=== PATIENT | female | born 1960 | race Caucasian/White ===

== ENCOUNTER → 2017-12-22 09:23 | Outpatient (CLI) | payer OTHER, SELFPAY ==
--- NOTE | 2017-12-22 09:30 | HPBD_ITS ---
STUDY: DUAL ENERGY X-RAY ABSORPTIOMETRY / DXA REASON FOR EXAM: Female, 57 years old. Early menopause. No loss of height. TECHNIQUE: Bone Mineral Density (BMD) measurements of lumbar spine and bilateral hips were obtained. COMPARISON: None. FINDINGS: Lumbar Spine (L1-L4): g/cm2 (0.901) / T-score (-2.2) / Z-score (-1.3) Findings are suggestive of osteopenia with a moderate fracture risk. Left Femur Total: g/cm2 (0.828) / T-score (-1.4) / Z-score (-0.7) Left Femoral Neck: g/cm2 (0.850) / T-score (-1.4) / Z-score (-0.3) Right Femur Total: g/cm2 (0.813) / T-score (-1.5) / Z-score (-0.8) Right Femoral Neck: g/cm2 (0.792) / T-score (-1.8) / Z-score (-0.7) HPBD/Dexa Bone Density Study (HP) IMPRESSION: The patient is considered osteopenic as outlined below according to World [employer] Organization (WHO) criteria with a moderate fracture risk. Reference Information: The T-score is the number of standard deviations above or below the standard which is normal for young adults at their peak bone mineral density. The World Health Organization (WHO) interprets the T-scores as follows: Above -1 Normal bone density Between -1 and -2.5 Osteopenia Equal to / or below -2.5 Osteoporosis As a practical clinical guideline, osteopenia may be graded as follows: Mild -1 through -1.5 Moderate -1.6 through -2.0 Severe -2.1 through -2.4 The Z-score is the number of standard deviations above or below age-matched controls. A Z-score of less than -1.5 would be considered abnormal. References: 1. NIH Osteoporosis and Related Bone Diseases http://www.osteo.org 2. International Society for Clinical Densitometry http://www.iscd.org 3. National Osteoporosis Foundation http://www.nof.org Electronically Signed: Leif Dodd MD at 10:29 EST Tel [phone], Service support ,
== END ==
PROVIDERS: Family Provider Family Medicine; PCP Family Medicine; Visit Provider Family Medicine
DX: Z79.899 Other long term (current) drug therapy (principal)
CPT/HCPCS: 77080

== ENCOUNTER → 2018-02-02 09:57 | Outpatient (CLI) | payer OTHER, SELFPAY ==
[2018-02-02 11:01] LABS: Absolute Lymphocyte Count 1.81 X10^3/ul (0.83-4.51); Absolute Neutrophil Count 4.1 X10^3/uL (2.0-7.7); Basophil# 0.02 X10^3/uL; Basophil% 0.3 % (0-1); Eosinophil# 0.11 X10^3/uL; Eosinophils% 1.7 % (0-5); Hematocrit 40.5 % (37-47); Hemoglobin 12.8 g/dl (12.0-15.0); Lymphocyte # 1.81 X10^3/ul (4.0); Lymphocyte % 27.6 % (19-41); Mean Corp Hgb Conc 31.6 g/gl (32-36); Mean Corpuscular Hgb 30.3 pg (27.0-32.0); Mean Corpuscular Volume 95.7 fL (81-99); Mean Platelet Vol. 10.4 fl (6.2-12.0); Monocyte# 0.54 X10^3/uL; Monocyte% 8.2 % (0-10); Neutrophil # 4.07 X10^3/uL (2.7-7.7); Platelet Count 301 K/mm3 (150-450); RBC Distribution Width CV 13.6 % (11.6-14.6); RBC Distribution Width SD 47.8 fl (35.1-43.9); Red Blood Count 4.23 M/mm3 (4.2-5.4); White Blood Count 6.6 K/mm3 (4.4-11.0)
[2018-02-02 11:05] LABS: POSITIVE COUNT NO; POSITIVE DIFFERENTIAL NO; POSITIVE MORPHOLOGY NO
== END ==
PROVIDERS: Family Provider Family Medicine; PCP Family Medicine; Visit Provider Family Medicine
DX: Z79.899 Other long term (current) drug therapy (principal)
CPT/HCPCS: 36415; 85025

== ENCOUNTER → 2018-02-23 12:42 | Outpatient (CLI) | payer OTHER, SELFPAY ==
--- NOTE | 2018-02-24 08:51 | PFT ---
INTRODUCTION: The patient is a 57-year-old female currently under the care of Dr. Daniel that presents for pulmonary function testing secondary to a diagnosis of pulmonary hypertension. Respiratory therapy reports good patient effort and reports no other concerns. Bronchodilators were used during testing. INTERPRETATION: Forced expiration spirometry demonstrates no evidence of a large airways obstructive ventilatory defect. There was no significant response to aerosolized bronchodilators, based upon strict ATS criteria. Spirograms are of good quality and plateau normally. Body plethysmography was performed and reveals lung volumes to be within normal limits. Diffusing capacity by single breath CO is mildly reduced at 61% of predicted. IMPRESSION: These pulmonary function studies demonstrate the presence of an isolated mild reduction in diffusing capacity.
== END ==
PROVIDERS: Family Provider Family Medicine; PCP Family Medicine; Visit Provider Internal Medicine Critical Care Medicine
DX: I27.20 Pulmonary hypertension, unspecified (principal)
CPT/HCPCS: 94060; 94726; 94729

== ENCOUNTER → 2018-02-26 12:13 | Outpatient (CLI) | payer OTHER, SELFPAY ==
[2018-02-26 12:52] VITALS: PULSE 100; PULSE 101; PULSE 102; PULSE 71; PULSE 78; PULSE 81; PULSE 99; O2SAT 100; O2SAT 95; O2SAT 97
--- NOTE | 2018-02-27 09:58 | PCM.PSN.6M ---
PSN 6 Minute Walk Test - 6 Minute Walk Test 6 Minute Walk Test: 6 Minute Walk Test PSN:6-Minute Walk Test Start: 02/26/18 12:52 Freq: Status: Active Protocol: [id number].[id number] Document 02/26/18 12:52 [facility] (Rec: 02/26/18 12:55 [facility] [id number]) 6 Minute Walk Test Date Performed 02/26/18 Time Performed 12:30 Height 5 ft 8 in Weight: 228 lb Weight in Pounds 228.[address]: Joseluis Daniel Assistive device used: None Pre-test Oxygen Delivery Method Room Air Pulse Ox (%) 97 Pulse Rate (60-100 beats/min) 71 Dyspnea Cat Scale (0-10) 0 1st minute Oxygen Delivery Method Room Air Pulse Ox (%) 97 Pulse Rate (60-100 beats/min) 81 Dyspnea Cat Scale (0-10) 0 2nd minute Oxygen Delivery Method Room Air Pulse Ox (%) 95 Pulse Rate (60-100 beats/min) 100 Dyspnea Cat Scale (0-10) 0 3rd minute Oxygen Delivery Method Room Air Pulse Ox (%) 95 Pulse Rate (60-100 beats/min) 100 Dyspnea Cat Scale (0-10) 0 4th minute Oxygen Delivery Method Room Air Pulse Ox (%) 97 Pulse Rate (60-100 beats/min) 99 Dyspnea Cat Scale (0-10) 0 5th minute Oxygen Delivery Method Room Air Pulse Ox (%) 100 Pulse Rate (60-100 beats/min) 101 H Dyspnea Cat Scale (0-10) 0 6th minute Oxygen Delivery Method Room Air Pulse Ox (%) 97 Pulse Rate (60-100 beats/min) 102 H Dyspnea Cat Scale (0-10) 0 Post-test Oxygen Delivery Method Room Air Pulse Ox (%) 100 Pulse Rate (60-100 beats/min) 78 Dyspnea Cat Scale (0-10) 0 Full Laps Walked 22 Partial Lap, Number of Tiles Walked 31 Total Distance Walked (ft) 1329 - Interpretation Interpretation: The patient ambulated 1329 feet over the course of 6 minutes on room air without assistive devices or breaks. Pretesting oxygen saturation was noted to be 97% on room air. With ambulation, the augusto oxygen saturation was 95%. There was no significant exertional oxygen desaturation noted. - Recommendations Recommendations: There is no indication for the use of supplemental oxygen at this time.
== END ==
PROVIDERS: Family Provider Family Medicine; PCP Family Medicine; Visit Provider Internal Medicine Critical Care Medicine
DX: I27.20 Pulmonary hypertension, unspecified (principal)
CPT/HCPCS: 94618

== ENCOUNTER → 2018-05-10 14:39 | Outpatient (CLI) | payer OTHER, SELFPAY ==
--- NOTE | 2018-05-10 14:42 | BI_ITS ---
MAMMOGRAPHY - BILATERAL SCREENING REASON FOR EXAM: Female, 58 years old. Routine annual screening examination. PERTINENT HISTORY: Sister with breast cancer. TECHNIQUE: Digital bilateral breast stanton (3D mammographic acquisition) in the CC and MLO projections. 2-D mediolateral oblique (MLO) and craniocaudad (CC) views of both breasts were obtained. CAD: Full Field Digital Mammography with Computer Added Detection was performed. COMPARISON: Comparison is made with prior study dated February 09, 2017 and December 31, 2015. FINDINGS: Breast Composition: The breasts are heterogeneously dense, which may obscure small masses. There are no dominant masses or suspicious calcifications. Stable appearance of the small bilateral axillary lymph nodes. No other significant abnormalities are identified. There has been no significant change since the prior study. BI/SCREENING MAMM (CAD), BILAT IMPRESSION: Stable bilateral screening mammogram. Yearly follow-up mammogram recommended. (A) ASSESSMENT CATEGORY: BIRADS Category 2: Benign. A letter regarding these results will be sent to the patient by the facility within 30 days. Approximately 10% of breast cancers are not detected by mammography. A normal mammogram should not delay biopsy of a clinically suspicious abnormality. [id number] Electronically Signed: Leif Dodd MD at 8:13 EDT Tel [phone], Service support ,
== END ==
PROVIDERS: Family Provider Family Medicine; PCP Family Medicine; Visit Provider Obstetrics & Gynecology
DX: Z12.31 Encounter for screening mammogram for malignant neoplasm of breast (principal)
CPT/HCPCS: 77063; 77067

== ENCOUNTER → 2018-09-28 11:36 | Outpatient (CLI) | payer OTHER, SELFPAY ==
[2018-09-28 13:24] LABS: Rubella IgG > 500.0 IU/mL
[2018-09-30 08:19] LABS: Immunoglobulin G 1083 mg/dL (700-1600); Rubeola IgG Ab > 300.0 AU/mL (Immune >29.9)
[2018-09-30 08:20] LABS: B. pertussis IgG 1.14 index (0.00-0.94); Mumps Antibody,IgG > 300.0 AU/mL (Immune >10.9)
== END ==
PROVIDERS: Family Provider Family Medicine; PCP Family Medicine; Referring Provider Allergy & Immunology; Visit Provider Allergy & Immunology
DX: R76.8 Other specified abnormal immunological findings in serum (principal); J01.91 Acute recurrent sinusitis, unspecified
CPT/HCPCS: 36415; 82784; 86735; 86762; 86765

== ENCOUNTER 2018-11-02 10:00 | Outpatient (RCR) | payer OTHER, SELFPAY ==
--- NOTE | 2018-09-03 14:34 | HP.PTEVAL_ITS ---
Patient's Visit Information MIKKI SURESH is a 58 year old F referred to Physical Therapy by FREDA SALVADOR with a diagnosis of HYPERMOBLITY SYNDROME,PAIN IN JOINT ,MULTIPLE SITES. Date of Evaluation: 09/03/18 Physical Therapist: Guevara Jimenez, PT, - Visit Plan Frequency: 2x /Week Duration: 4 Weeks Plan: Aquatic PT for gradec progression with ROM UE/LE ,strengthening,posture,stabilization - Subjective Subjective: This 58 y/o female presents to physical therapy with hypermoblity syndrome ,pain in joint ,mutliple sites.This patient has had joint ,muscle pain and fatigue since 2014, Patient has seen pain managemnent ,massage. Patient has seen specialist for RA specialist in [facility] immune system recommended Water Exercies . Patient has other comorbities fibromayagia,possible lupus , connective tissue disorder. patient has pain grossly neck shoulders ,hips ankle. These symptoms worse with activity affect QOL ,job demands ,difficulty with ADL'S and housework chores. Denies parathesia/tingling. Patient has had lab work.Patient symptoms of fatigue along with pain affects function.Patient recommend to see immunuolgist. SOCIAL: . VOCATION: Medical records - Pain Bilateral Lower Extremity Pain Intensity (Out of 10): 5 Pain Intensity Range: 10 Bilateral Shoulder Pain Intensity (Out of 10): 5 Pain Intensity Range: 10 - Objective POSTURE: mild foward posture,roud shoulders. GAIT: ambulates with normal wilma reciprocal pattern. PALAPTION: tender trigger points throught upper lower back. NEURO: denie parathesia/tingling ,reflexes intac. AROM: BUE WFL. MMT UE: 4/5 shoulders 4-/5. CERVICAL ROM: flexion min loss ,extension /lateral flexion/rotation mod loss. FLEXABLITTY: hams mod tight ,piriformis mod tight. LUMBAR ROM: min loss flexion extension. MMT LE: quads/hams 4/5,ankle 4/5,hip 4- /5 - Special Tests C/S Radiculapathy - Left Upper limb tension test: Negative C/S Radiculapathy - Right Upper limb tension test: Negative C/S Radiculapathy - Left Spurlings: Negative C/S Radiculapathy - Right Spurlings: Negative C/S Radiculapathy - Left Cervical distraction: Negative L/S Slump test left side: Negative L/S Slump test right side: Negative L/S Left Straight Leg Raise: Negative L/S Right Straight Leg Raise: Negative - Goals Goal 1:: Independant with Aquatic PT program. Goal Time Frame: 4-6 Weeks Goal 2:: Patient to decrease pain multiple regions in body by 40% or greater to improve function. Goal Time Frame: 4-6 Weeks Goal 3:: Patient improve LFES score by 10 points or greater to improve QOL Goal Time Frame: 4-6 Weeks Goal 4:: Patient to improve ADL'S and housework tasks with min limiations Goal Time Frame: 4-6 Weeks - Rehabilitation Potential Physical Therapy Diagnosis: This 58 y/o female presents with pain throught UE/LE back cervical with mutiple sites which. affect QOL ,ADL'S and job demands thus benifit from skille PT Rehabilitation Potential: Good - Anticipated Interventions Patient/Client Instruction: Educate patient on: Condition, Plan of Care For the Purpose of:: To decrease pain, To increase ROM, To improve nutrient delivery to tissue, To increase oxygenation perfusion, To improve muscle performance and motor function, To improve ability to perform ADL's, To increase tolerance to activity/condition/position, To improve ability of physical actions for home/community/work/leisure, To improve health of tissue, To increase flexibility/ROM, To foster healthy habits, To improve ability to perform tasks related to life management Therapeutic Exercise to Include: Strength training, Postural training, Flexibilty training, In an aquatic setting, Passive ROM, Active ROM, Dynamic Lumbar Stabilization For the Purpose of:: To decrease pain, To increase ROM, To improve muscle performance and motor function, To improve ability to perform ADL's, To increase tolerance to activity/condition/position, To improve health of tissue, To decrease soft tissue restriction, To increase flexibility/ROM, To improve ability to perform tasks related to life management Thank you for the opportunity to evaluate your patient. For Medicare and Medicare HMO plans, please review the plan of care and approve it. It will need to be FAXED BACK to us at [phone] for Medicare purposes. Please let me know if there are questions or concerns regarding this plan of care. Physician Signature: Date:
--- NOTE | 2019-02-21 10:45 | HP.PTDCSUM ---
HP - PT D/C Summary It has been my pleasure to treat MIKKI SURESH under orders from FREDA SALVADOR, for the diagnosis of HYPERMOBLITY SYNDROME,PAIN IN JOINT ,MULTIPLE SITES for a total of 8 visit(s). Discharge Date: Please see the following information for a summary of their discharge status. - Subjective Subjective: States after last appt she was a little sore, but that is to be expected with being sick and having 2 weeks off of AT. - Pain Bilateral Lower Extremity Pain Intensity (Out of 10): 2 Bilateral Shoulder Pain Intensity (Out of 10): 2 General Pain Pain Intensity (Out of 10): 2 - Overall Improvement % Improvement: 70 - Objective Objective/Function: After discussion of this being the last appt, states she wants to continue in the pool. Implemented paper for progressions to I pool program with instruction on use of paper and following commands. Does well following paper, however more difficulty performing at challenging progression - encouraged this as written on paper. Some c/o's pain/fatigue through BLAT hip flexors/quads with lunges today. Able to complete several tasks I after Rx with paper. - Goals Goal 1:: Independant with Aquatic PT program. Goal 2:: Patient to decrease pain multiple regions in body by 40% or greater to improve function. Goal 3:: Patient improve LFES score by 10 points or greater to improve QOL Goal 4:: Patient to improve ADL'S and housework tasks with min limiations - Plan Plan: f/u with supervising PT next. Would recommend continued AT appts at this time with progression towards I pool program of her choice of facility. (Pt reports did not encourage her to progress to land d/t Lupus). - D/C Information If there are questions or concerns regarding this patient's physical therapy, please feel free to call me at [phone]. Thank you for the referral of this patient. Sincerely, Guevara Jimenez, PT, Cert MDT, OCS
== END 2018-11-02 19:00 | disposition home or self-care (01) ==
LOC: PT 10:00
PROVIDERS: Family Provider Family Medicine; PCP Family Medicine
DX: M35.7 Hypermobility syndrome (principal); M25.50 Pain in unspecified joint
CPT/HCPCS: 97113; 97162

== ENCOUNTER → 2019-06-27 10:24 | Outpatient (CLI) | payer OTHER, SELFPAY ==
[2019-02-22 08:30] VITALS: BMI 37.7
--- NOTE | 2019-06-27 10:27 | BI_ITS ---
MAMMOGRAPHY - BILATERAL SCREENING REASON FOR EXAM: Female, 59 years old. Routine annual screening examination. PERTINENT HISTORY: Sister with breast cancer. Remote right excisional breast biopsy. TECHNIQUE: Digital bilateral breast mehran (3D mammographic acquisition) in the CC and MLO projections. 2-D mediolateral oblique (MLO) and craniocaudad (CC) views of both breasts were obtained. CAD: Full Field Digital Mammography with Computer Added Detection was performed. COMPARISON: Comparison is made with prior study dated May 10, 2018 and February 09, 2017. FINDINGS: Breast Composition: The breasts are heterogeneously dense, which may obscure small masses. There are no dominant masses or suspicious calcifications. Stable small bilateral axillary lymph nodes. No other significant abnormalities are identified. There has been no significant change since the prior study. BI/SCREEN MAMM (CAD) W/MEHRAN BILAT IMPRESSION: Stable bilateral screening mammogram. Yearly follow-up mammogram recommended. (A) ASSESSMENT CATEGORY: BIRADS Category 2: Benign. A letter regarding these results will be sent to the patient by the facility within 30 days. Approximately 10% of breast cancers are not detected by mammography. A normal mammogram should not delay biopsy of a clinically suspicious abnormality. [id number] Electronically Signed: Leif Dodd, at 12:42 EDT , Service support ,
== END ==
PROVIDERS: Family Provider Family Medicine; PCP Family Medicine; Referring Provider Family Medicine; Visit Provider Family Medicine
DX: Z12.31 Encounter for screening mammogram for malignant neoplasm of breast (principal); Z80.3 Family history of malignant neoplasm of breast
CPT/HCPCS: 77063; 77067

== ENCOUNTER → 2019-08-16 09:41 | Outpatient (CLI) | payer OTHER, SELFPAY ==
[2019-02-22 08:30] VITALS: BMI 37.7
--- NOTE | 2019-08-16 14:38 | PFTCOMP ---
COMPLETE PULMONARY FUNCTION TEST INTERPRETATION Brief HPI: Patient is a 59 year old female, currently under the care of myself, who presents to [facility] for complete pulmonary function tests secondary to diagnosis of LILIANA. Respiratory therapist reports good effort and reproducible results. Interpretation: Forced expiration spirometry shows no large airways obstructive ventilatory defect with an FEV1 of 73% predicted. There is no significant bronchodilator response by strict ATS criteria. Spirograms are of good quality and plateau normally. The respiratory flow volume loop shows a normal pattern. Lung volumes by body plethysmography show a normal total lung capacity at 5.32 L, 93% predicted. All other lung volumes are within normal limits. Diffusion capacity by carbon monoxide is decreased at 66% predicted. The airway resistance is normal. Compared to previous pulmonary function tests from 02/23/2018, there is been a significant improvement in DLCO by 13%. Impression: Isolated reduction in diffusion capacity consistent with a pulmonary vascular disorder. However, there has been improvement compared to 2018.
== END ==
PROVIDERS: Family Provider Family Medicine; PCP Family Medicine; Referring Provider Internal Medicine Critical Care Medicine; Visit Provider Internal Medicine Critical Care Medicine
DX: G47.33 Obstructive sleep apnea (adult) (pediatric) (principal); I27.21 Secondary pulmonary arterial hypertension; J45.40 Moderate persistent asthma, uncomplicated; M32.9 Systemic lupus erythematosus, unspecified; M35.9 Systemic involvement of connective tissue, unspecified
CPT/HCPCS: 94060; 94726; 94729

== ENCOUNTER → 2019-12-08 07:48 | Outpatient (CLI) | payer OTHER, SELFPAY ==
[2019-08-22 07:50] VITALS: BMI 38.6
--- NOTE | 2019-12-08 07:51 | CT_ITS ---
STUDY: CTA CHEST REASON FOR EXAM: Female, 59 years old. PT STATED CHEST PAIN AFTER LIFTING, SOB WITH EXERTION, HX OF HTN RADIATION DOSAGE (If Supplied By Facility): CTDIvol = ( 15.54 ) mGy, DLP = ( 805 ) mGycm TECHNIQUE: The examination was performed with the intravenous administration of 100ml isovue 370. Post-processing of the angiographic images was performed, with multiplanar reformation and 3D reconstruction. Individualized dose optimization techniques were used for this CT. COMPARISON: Comparison is made with prior examination dated December 08, 2013. FINDINGS: Normal enhancement of the main pulmonary artery and right and left pulmonary arteries. Normal enhancement of the bilateral peripheral pulmonary arteries. There is no demonstrated pulmonary embolism. There is aneurysmal dilatation of the ascending aorta. The transverse diameter of the ascending aorta measures 45.5 mm''s. There is no demonstrated aortic dissection. Normal heart and pericardium. Normal mediastinum. Normal hilar regions. Normal visualized trachea and bronchi. The lungs are well expanded. Stable mild increased markings at the lung bases suggestive of mild scarring. Normal pleura. Normal chest wall structures. There are mild degenerative changes of thoracic spine. Normal visualized upper abdomen. CT/CTA Chest W/WO Contrast IMPRESSION: Stable dilatation of the ascending thoracic aorta. Electronically Signed: Leif Dodd, at 9:07 EST , Service support ,
== END ==
PROVIDERS: PCP Family Medicine; Referring Provider Family Medicine; Visit Provider Family Medicine
DX: I71.2 Thoracic aortic aneurysm, without rupture (principal); R07.9 Chest pain, unspecified
CPT/HCPCS: 71275; Q9967

== ENCOUNTER 2019-12-24 09:00 | Emergency (ER) | payer OTHER, SELFPAY ==
[2019-08-22 07:50] VITALS: BMI 38.6
[2019-12-24 09:01] VITALS: BP 154/97; PULSE 79; RESP 16; TEMP 36.1; O2SAT 97; BMI 37.4
--- NOTE | 2019-12-24 09:12 | CT_ITS ---
STUDY: CT BRAIN WITHOUT CONTRAST REASON FOR EXAM: Female, 59 years old. FACIAL NUMBNESS, FALL, LUMP TO POSTERIOR HEAD RADIATION DOSAGE (If Supplied By Facility): CTDIvol = ( 44.99 ) mGy, DLP = ( 745.49 ) mGycm TECHNIQUE: Transaxial CT imaging of the brain was performed without administration of intravenous contrast material. Individualized dose optimization techniques were used for this CT. COMPARISON: No relevant priors. FINDINGS: Posterior right parietal scalp swelling/hematoma. Normal calvarium. Normal size ventricles and extra-axial spaces for the patient''s age. Normal white matter tracts of the cerebral hemispheres. Normal basal ganglia and thalami. Normal brainstem. Normal cerebellum. There is no intracranial hemorrhage. There are no findings of an acute ischemic infarction. Normal visualized paranasal sinuses. CT/Brain/Head without Contrast IMPRESSION: Normal unenhanced CT scan of the brain. Right posterior parietal scalp swelling/hematoma. Electronically Signed: Nakul Murrell DO at 9:51 EST Tel [phone], Service support ,
--- NOTE | 2019-12-24 09:31 | ED.VIS.INJ ---
History of Present Illness Chief Complaint: Fall Informant: Patient, Significant Other Onset: Today Mechanism/Context: Blunt Injury, Fall Quality of Pain: Dull, Aching Location: Back of head Current Severity: Mild Maximum Severity: Moderate Worsened by: Palpation Relieved by: Nothing Associated Symptoms: Loss of consciousness, Amnesia. Negative for: Parasthesias, Weakness, Inability to ambulate Length of loss of consciousness: Unknown Narrative: Patient is a middle-age woman who presents with blunt head trauma. She had loss of conscious amnestic. Her was not available. She complains of headache. She does report nausea. She is had no vomiting. Denies double vision, blurred vision loss of vision. Nuys ringing in ears or decreased hearing. Denies neck pain. She denies paresthesia, anesthesia medics present at time of the injury. Denies cardiac respiratory symptoms. Nuys black or maroon stool. She denies urologic symptoms. She denies prior history of TIA or CVA. 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 (10) Supraventricular tachycardia Status: Chronic (11) Thoracic aortic aneurysm without rupture Status: Chronic Past Medical History - Allergies and Home Meds Allergies/Adverse Reactions: Allergies caffeine Allergy (Verified 12/24/19 09:03) Other BLEEDS INTERNALLY, PETECIE cephalexin monohydrate [From Keflex] Allergy (Verified 12/24/19 09:03) Hives TURNS RED Penicillins Allergy (Verified 12/24/19 09:03) Other promethazine HCl [From Phenergan] Adverse Reaction (Verified 12/24/19 09:03) Other IV PHENERGAN - WHIPLASH LIKE FEELING STATES SHE CAN TAKE PO PHENERGAN Primary Care Physician: Aisha Aguilar DO [Primary Care Provider] - Prior records reviewed: Yes Surgical History: noncontributory Lives: Spouse/ Significant Other Smoking Status: Never smoker Drugs: None Review of Systems ROS: Unable to Obtain - Patient is amnestic limited to what is documented General: Denies: Chills, Fever Eyes: Denies: Visual changes - bilaterally, Blurred Vision - bilaterally, Diplopia ENT: Denies: Bilateral ear pain, Rhinorrhea, Sore throat Cardiovascular: Denies: Chest pain, Palpitations Respiratory: Denies: Dyspnea, Dyspnea on exertion Gastrointestinal: Reports: Nausea. Denies: Abdominal pain, Vomiting Musculoskeletal: Denies: Myalgias, Arthralgias, Neck pain, Back pain, Swelling, Extremity Pain Skin: Denies: Rash, Wounds Neurological: Reports: Headache, Parasthesia - Paresthesia left side of the face. Denies: Weakness Endocrine: Reports: Polyuria Hematologic: Denies: Easy bruising, Easy bleeding Allergy: Denies: Swelling of the mouth, Swelling of the tongue Physical Exam Vital Signs/Narrative: Vital Signs Temp Pulse Resp BP Pulse Ox 12/24/19 09:01 97 F L 79 16 154/97 H 97 Inital Vital Signs reviewed: Yes General: Well nourished, Well developed, Obese Head: Normocephalic, Trauma, Tenderness, - - Is a significant hematoma right parietal occipital area. No palpable depression. There is no clinical finding of basilar skull fracture. Eyes: Perrl, EOMI. Negative for: Pale conjunctiva, Scleral icterus ENT: TM's clear, No hemotympanum or drainage, No trauma. Negative for: Hemotympanum, Otorrhea, Nasal trauma, Nasal septal hematoma Neck: Nontender, Full ROM. Negative for: Spinal Tenderness, Paraspinal Tenderness Cardiovascular: Regular rate, Regular rhythm, No murmurs, Normal S1, Normal S2 Respiratory: No distress, CTA bilaterally, Chest nontender Abdomen: Soft, Nontender, Nondistended, Normal bowel sounds, No masses Back: Nontender. Negative for: CVA Tenderness - Right, CVA Tenderness - Left, Spinal Tenderness Skin: Normal color, No rash, Trauma - Yenifer back of the head. Negative for: Cyanosis, Diaphoresis, Jaundice Neurological: Cranial nerves II-XII grossly intact, Normal Strength, Normal DTR - There is a Babinski sign on the right. There is no clonus., Confused, Disoriented. Negative for: Alert, Oriented x3, Normal Sensation Psychological: Normal affect - Glascow Coma Scale Eye Opening: Spontaneous Motor: Obeys Commands Verbal: Confused Coma Scale Total: 14 Diagnostic/Tx/Re-eval Impressions Brain CT 12/24/19 09:12 IMPRESSION: Normal unenhanced CT scan of the brain. Right posterior parietal scalp swelling/hematoma. Electronically Signed: Nakul Murrell DO at 9:51 EST Tel [phone], Service support , 12/24/19 09:12 Brain/Head without Contrast [CT] Stat He was reviewed by me. There is no evidence of fracture, subdural, epidural, traumatic subarachnoid hemorrhage or intraparenchymal bleed. Patient was reassessed at 1100. She is alert and oriented x3 with a GCS of 15. - Medical Decision Making With head trauma and loss of conscious and amnesia with GCS of [address] of the head was obtained to rule out intracranial bleed i.e. subdural, epidural, traumatic subarachnoid or intraparenchymal contusion. ED Disposition - Plan for ED Patient: Disposition: Home or Assisted Living Diagnosis: Concussion with loss of consciousness <= 30 min Instructions: HEAD INJURY, No Wake-Up (Adult) Referrals: Aisha Aguilar DO [Primary Care Provider] - 1 Week if not improving
== END 2019-12-24 11:26 | disposition home or self-care (01) ==
PROVIDERS: Emergency Provider Emergency Medicine; PCP Family Medicine
DX: S06.0X1A Concussion with loss of consciousness of 30 minutes or less, initial encounter (principal); S00.03XA Contusion of scalp, initial encounter; W19.XXXA Unspecified fall, initial encounter; Y93.9 Activity, unspecified; Y92.9 Unspecified place or not applicable; Y99.9 Unspecified external cause status; M32.9 Systemic lupus erythematosus, unspecified; I10 Essential (primary) hypertension; E78.5 Hyperlipidemia, unspecified; J45.40 Moderate persistent asthma, uncomplicated; I34.0 Nonrheumatic mitral (valve) insufficiency; I34.1 Nonrheumatic mitral (valve) prolapse; I27.21 Secondary pulmonary arterial hypertension; I47.1 Supraventricular tachycardia; I71.2 Thoracic aortic aneurysm, without rupture; G47.33 Obstructive sleep apnea (adult) (pediatric); E66.9 Obesity, unspecified; Z79.82 Long term (current) use of aspirin; Z79.899 Other long term (current) drug therapy; Z88.1 Allergy status to other antibiotic agents; Z88.0 Allergy status to penicillin; Z88.8 Allergy status to other drugs, medicaments and biological substances
CPT/HCPCS: 70450; 99283; A4216

== ENCOUNTER → 2020-01-05 07:57 | Outpatient (CLI) | payer OTHER, SELFPAY ==
[2019-12-24 09:01] VITALS: BMI 37.4
--- NOTE | 2020-01-05 08:04 | RAD_ITS ---
STUDY: X-RAY - PELVIS AND RIGHT HIP REASON FOR EXAM: Female, 59 years old. CONTINUED PAIN S/P FALL 2 WEEKS AGO; -- LUPUS, FIBROMYALGIA TECHNIQUE: 3 views of the pelvis and hip. COMPARISON: None. FINDINGS: There is a non-specific bowel gas pattern. Normal visualized soft tissue structures. Normal bilateral iliac wings, sacroiliac joints and visualized sacrum. Normal bilateral superior and inferior pubic rami. There are degenerative changes of the pubic symphysis with articular narrowing and sclerosis. Normal bilateral ischial tuberosities. Normal visualized femoral head. Normal acetabulum. Normal hip joint. RAD/HIP, UNI W/ Pelvis 2-3 Views IMPRESSION: Normal x-ray examination of the pelvis and hip. Electronically Signed: Leif Dodd, at 9:56 EST , Service support ,
== END ==
PROVIDERS: PCP Family Medicine; Referring Provider Family Medicine; Visit Provider Family Medicine
DX: M25.551 Pain in right hip (principal); R10.2 Pelvic and perineal pain
CPT/HCPCS: 73502

== ENCOUNTER → 2020-08-16 12:20 | Outpatient (CLI) | payer OTHER, SELFPAY ==
[2020-02-20 08:32] VITALS: BMI 37.8
[2020-08-04 09:04] VITALS: BMI 37.8
--- NOTE | 2020-08-16 12:20 | BD_ITS ---
STUDY: DUAL ENERGY X-RAY ABSORPTIOMETRY / DXA REASON FOR EXAM: Female, 60 years old. Age of dinesh 45. Pat is 242.5# and 67 and quot; a loss of 1 and quot; per pat. Past hx of using an HRT. Father has osteo. Hx of right foot fx, and stress fx''s to both. TECHNIQUE: Bone Mineral Density (BMD) measurements of lumbar spine and bilateral hips were obtained. COMPARISON: Comparison is made with prior study dated 08/21/2018. FINDINGS: Lumbar Spine (L1-L4): g/cm2 (1.008) / T-score (-1.3) / Z-score (-0.2) Findings are suggestive of osteopenia with a low fracture risk. Left Femur Total: g/cm2 (0.868) / T-score (-1.1) / Z-score (-0.2) Left Femoral Neck: g/cm2 (0.834) / T-score (-1.5) / Z-score (-0.3) Right Femur Total: g/cm2 (0.822) / T-score (-1.5) / Z-score (-0.6) Right Femoral Neck: g/cm2 (0.798) / T-score (-1.7) / Z-score (-0.5) The T-Scores on the most recent prior examination were: Lumbar Spine (L1-L4): There has been improvement of bone density since the previous examination. Left Femur Total: which represents an improvement of 4.8%. Right Femur Total: which represents an improvement of 1.1%. BD/Dexa Bone Density Study IMPRESSION: The patient is considered osteopenic as outlined below according to World [employer] Organization (WHO) criteria with a moderate fracture risk. There has been improvement of bone density since the previous examination. Reference Information: The T-score is the number of standard deviations above or below the standard which is normal for young adults at their peak bone mineral density. The World Health Organization (WHO) interprets the T-scores as follows: Above -1 Normal bone density Between -1 and -2.5 Osteopenia Equal to / or below -2.5 Osteoporosis As a practical clinical guideline, osteopenia may be graded as follows: Mild -1 through -1.5 Moderate -1.6 through -2.0 Severe -2.1 through -2.4 The Z-score is the number of standard deviations above or below age-matched controls. A Z-score of less than -1.5 would be considered abnormal. References: 1. NIH Osteoporosis and Related Bone Diseases http://www.osteo.org 2. International Society for Clinical Densitometry http://www.iscd.org 3. National Osteoporosis Foundation http://www.nof.org Electronically Signed: Leif Dodd, at 14:52 EDT , Service support ,
--- NOTE | 2020-08-16 12:22 | BI_ITS ---
MAMMOGRAPHY - BILATERAL SCREENING REASON FOR EXAM: Female, 60 years old. Routine annual screening examination. PERTINENT HISTORY: Sister with breast cancer. TECHNIQUE: Digital bilateral breast mehran (3D mammographic acquisition) in the CC and MLO projections. 2-D mediolateral oblique (MLO) and craniocaudad (CC) views of both breasts were obtained. CAD: Full Field Digital Mammography with Computer Added Detection was performed. COMPARISON: Comparison is made with prior study 06/27/2019 and 05/10/2018. FINDINGS: Breast Composition: The breasts are heterogeneously dense, which may obscure small masses. There are no dominant masses or suspicious calcifications. Stable small benign appearing bilateral axillary lymph nodes. No other significant abnormalities are identified. There has been no significant change since the prior study. BI/SCREEN MAMM (CAD) W/MEHRAN BILAT IMPRESSION: Stable bilateral screening mammogram. Yearly follow-up mammogram recommended. (A) ASSESSMENT CATEGORY: BIRADS Category 2: Benign. A letter regarding these results will be sent to the patient by the facility within 30 days. Approximately 10% of breast cancers are not detected by mammography. A normal mammogram should not delay biopsy of a clinically suspicious abnormality. [id number] Electronically Signed: Leif Dodd, at 14:41 EDT , Service support ,
== END ==
PROVIDERS: PCP Family Medicine; Referring Provider Family Medicine; Visit Provider Family Medicine
DX: Z12.31 Encounter for screening mammogram for malignant neoplasm of breast (principal); Z78.0 Asymptomatic menopausal state
CPT/HCPCS: 77063; 77067; 77080

== ENCOUNTER → 2020-08-23 14:24 | Outpatient (CLI) | payer OTHER, SELFPAY ==
[2020-08-04 09:04] VITALS: BMI 37.8
--- NOTE | 2020-08-23 14:28 | RAD_ITS ---
STUDY: X-RAY - CERVICAL SPINE REASON FOR EXAM: Female, 60 years old. increasing pain, right sided swelling posterior neck, pinched nerve feeling on the the left side TECHNIQUE: 5 view(s) of the cervical spine were obtained. COMPARISON: Previous intraoperative study of 12/15/2014 FINDINGS: Normal anterior atlantoaxial articulation. Normal odontoid process. Normal cervical lordosis. There is minimal endplate spondylosis of C6. Normal disc space heights. Normal visualized intervertebral neuroforamina. The soft tissue structures are unremarkable. RAD/Cerv Spine 4 or 5 Views IMPRESSION: Minimal endplate spondylosis of C6. The study is otherwise unremarkable. Electronically Signed: Naveen Hoyos MD at 20:07 EDT , Service support ,
== END ==
PROVIDERS: PCP Family Medicine; Visit Provider Anesthesiology Pain Medicine
DX: M50.30 Other cervical disc degeneration, unspecified cervical region (principal)
CPT/HCPCS: 72050

== ENCOUNTER → 2020-08-30 13:00 | Outpatient (CLI) | payer OTHER, SELFPAY ==
[2020-08-27 09:11] VITALS: BMI 38.2
== END ==
PROVIDERS: PCP Family Medicine; Referring Provider Nurse Practitioner Acute Care; Visit Provider Nurse Practitioner Acute Care
DX: Z46.89 Encounter for fitting and adjustment of other specified devices (principal)
CPT/HCPCS: 98960; G0463

== ENCOUNTER 2020-09-17 06:05 | Day surgery (SDC) | payer OTHER, SELFPAY ==
[2020-08-27 09:11] VITALS: BMI 38.2
[2020-09-17 06:30] VITALS: BP 135/76; PULSE 64; RESP 16; TEMP 36.4; O2SAT 96; BMI 36.9
[2020-09-17] MEDS: Lactated Ringers 1,000 ML 100 ML IV (06:41)
--- NOTE | 2020-09-17 07:50 | RAD_ITS ---
PROCEDURE: Left C4-C7 facet joint injection. DATE OF EXAMINATION: 09/17/2020. INDICATION: Female, 60 years old. Chronic neck pain. FLUOROSCOPY TIME (if supplied): (10.9 seconds) minutes/seconds. 4 intraoperative views were obtained. Intraoperative imaging provided for C4-C7 left facet joint injection. RAD/Cerv Spine 4 or 5 Views IMPRESSION: Intraoperative imaging provided for left C4-C7 facet joint injection. Electronically Signed: Leif Dodd, at 9:40 EST , Service support ,
[2020-09-17] MEDS: MethylPREDNISolone Acetate 40 MG/ML Vial IM (07:53)
[2020-09-17] MEDS: Bupivacaine 0.25% 30 ML Vial (07:53)
[2020-09-17 08:01] VITALS: BP 121/63; BP 135/76; PULSE 72; RESP 16; TEMP 36.3; O2SAT 99
[2020-09-17 08:06] VITALS: BP 128/81; BP 135/76; PULSE 63; RESP 16; O2SAT 99
[2020-09-17 08:11] VITALS: BP 134/80; BP 135/76; PULSE 62; RESP 16; O2SAT 99
[2020-09-17 08:17] VITALS: BP 117/91; BP 135/76; PULSE 62; RESP 16; TEMP 36.3; O2SAT 100
[2020-09-17 08:26] VITALS: BP 135/76
--- NOTE | 2020-09-17 14:36 | OP.PCM_ITS ---
Report of Operation Date of Procedure: 09/17/20 Description of Surgical Findings:: PREOPERATIVE DIAGNOSIS: Cervical spondylosis, cervical degenerative disc disease, cervical facet arthropathy POSTOPERATIVE DIAGNOSIS: Cervical spondylosis, cervical degenerative disc disease, cervical facet arthropathy PROCEDURE PERFORMED: Left-sided cervical facet steroid injection, C4, C5, C6, and C7. ANESTHESIA: MAC. BLOOD LOSS: Minimal. COMPLICATIONS: None. DESCRIPTION OF PROCEDURE: History and physical of today was reviewed. Risks and benefits of the procedure were explained. The patient understood and agreed to proceed. Informed consent was obtained. IV inserted per routine protocol. The patient was taken to the operating room and placed in the prone position with a pillow positioned underneath the chest. The neck area was prepped and draped in a sterile fashion using iodine x3. Under fluoroscopy guidance on an AP view, the C4 through C7 vertebral bodies were visualized at approximately 10- degree angle, starting on the left C4, ending on the left C7, passing through the C5 and C6. Using a 25-gauge 3-1/2-inch spinal needle, the needle was advanced via the skin. The tip of the needle was maneuvered and directed towards the epiphyseal junction of each corresponding vertebra. Once the tip of the needle was at the vicinity of the medial branch, the needle was pulled ap proximately 2 mm off the bone. After negative aspiration of blood or CSF and confirmation on AP, oblique as well as lateral view, a total of 4 mL of preservative-free 0.25% Marcaine with 80 mg of Depo-Medrol was injected in divided doses between those four levels. The needles were then removed intact. The patient experienced no sign or symptoms of intrathecal or intravascular injection. The patient experienced no paresthesia. The procedure was completed without any apparent difficulty or any complications. The patient appeared to tolerate it well. ASSESSMENT AND PLAN: This is a 60-year-old female with cervical spondylosis, cervical degenerative disc disease, cervical facet arthropathy status post left-sided cervical facet steroid injection C4-C7, patient will continue her current medications, patient will follow up in approximately 2 weeks for reevaluation.
== END 2020-09-17 08:40 | disposition home or self-care (01) ==
LOC: SDC 06:05 → AC 06:05
PROVIDERS: PCP Family Medicine; Referring Provider Anesthesiology Pain Medicine; Visit Provider Anesthesiology Pain Medicine
PROC: 3E0U3BZ Introduction of Anesthetic Agent into Joints, Percutaneous Approach (ICD-10-PCS; CPT 64490; principal; 2020-09-17 07:35)
DX: M47.812 Spondylosis without myelopathy or radiculopathy, cervical region (principal); M50.30 Other cervical disc degeneration, unspecified cervical region; Z79.899 Other long term (current) drug therapy; Z79.82 Long term (current) use of aspirin; I10 Essential (primary) hypertension; I47.1 Supraventricular tachycardia; J45.909 Unspecified asthma, uncomplicated; G47.33 Obstructive sleep apnea (adult) (pediatric); M79.7 Fibromyalgia; M32.9 Systemic lupus erythematosus, unspecified; E78.5 Hyperlipidemia, unspecified; Z79.891 Long term (current) use of opiate analgesic
CPT/HCPCS: 01992; 64490; 64491; 64492; 72050; J7120

== ENCOUNTER → 2020-10-04 08:12 | Outpatient (CLI) | payer OTHER, SELFPAY ==
[2020-09-17 06:30] VITALS: BMI 36.9
[2020-10-04 09:04] LABS: Absolute Lymphocyte Count 1.79 X10^3/uL (0.83-4.51); Absolute Neutrophil Count 2.8 X10^3/uL (2.0-7.7); Basophil# 0.04 X10^3/uL; Basophil% 0.8 % (0-1); Eosinophils% 1.9 % (0-5); Hematocrit 41.4 % (37-47); Hemoglobin 12.9 g/dL (12.0-15.0); Lymphocyte # 1.79 X10^3/ul (4.0); Lymphocyte % 34.6 % (19-41); Mean Corp Hgb Conc 31.2 g/dL (32-36); Mean Corpuscular Hgb 31.1 pg (27.0-32.0); Mean Corpuscular Volume 99.8 fL (81-99); Mean Platelet Vol. 10.2 fl (6.2-12.0); Monocyte# 0.46 X10^3/uL; Monocyte% 8.9 % (0-10); NRBC Flagged by Analyzer 0 % (0-5); Neutrophil # 2.77 X10^3/uL (2.7-7.7); Neutrophil % 53.6 % (47-70); Platelet Count 265 K/mm3 (150-450); RBC Distribution Width CV 13.1 % (11.6-14.6); RBC Distribution Width SD 48.5 fl (35.1-43.9); Red Blood Count 4.15 M/mm3 (4.2-5.4); White Blood Count 5.2 K/mm3 (4.4-11.0)
[2020-10-04 09:30] LABS: Progesterone Level 0.25 ng/mL (See Comment)
[2020-10-04 09:34] LABS: Hemoglobin A1c 5.5 % (3.8-5.6)
[2020-10-04 09:37] LABS: ALB/GLOB Ratio 1.1 RATIO (0.9-2.4); AST(SGOT) 12 U/L (15-37); Alanine Aminotransfer ALT/SGPT 26 U/L (13-56); Albumin, Serum 3.6 g/dL (3.2-5.0); Alkaline Phosphatase 92 U/L (45-117); Anion Gap 1 (5-15); BUN 12 mg/dL (7-18); Calcium,Total 8.9 mg/dL (8.5-10.1); Chloride 111 mmol/L (98-107); Creatinine, Serum 0.86 mg/dL (0.55-1.02); EST Glomerular Filtration Rate 72 mL/min (>60); Est Glom Filt Rate - Afr Amer 87 mL/min (>60); Estradiol 12.9 pg/mL; Globulin 3.2 g/dL (2.2-4.2); Glucose 96 mg/dL (74-106); Potassium 4.1 mmol/L (3.5-5.1); Protein, Total 6.8 g/dL (6.4-8.2); Sodium Level 143 mmol/L (136-145); Thyroid Stim Hormone (TSH) 1.16 uIU/mL (0.358-3.74)
== END ==
PROVIDERS: PCP Family Medicine; Referring Provider Family Medicine; Visit Provider Family Medicine
DX: R53.83 Other fatigue (principal); N95.1 Menopausal and female climacteric states; R73.02 Impaired glucose tolerance (oral)
CPT/HCPCS: 36415; 80053; 82670; 83036; 84144; 84443; 85025

== ENCOUNTER → 2020-11-30 10:10 | Outpatient (CLI) | payer OTHER, SELFPAY ==
[2020-11-30 09:37] VITALS: BMI 36.8
--- NOTE | 2020-11-30 10:13 | RAD_ITS ---
STUDY: X-RAY - LUMBAR SPINE REASON FOR EXAM: Female, 60 years old. LOW BACK PAIN, NO INJURY TECHNIQUE: 5 view(s) of the lumbar spine were obtained. COMPARISON: None FINDINGS: Normal lumbar lordosis. There is no substantial scoliosis. There is a normal alignment of the vertebrae. Normal vertebral bodies and endplates. Minimal degenerative disc changes. There is no demonstrated fracture. The soft tissue structures are unremarkable. RAD/L/S Spine Min 4 Views IMPRESSION: Normal for age. Minimal degenerative disc changes. Electronically Signed: Doretha Huggins MD at 17:13 EST , Service support ,
== END ==
PROVIDERS: PCP Family Medicine; Referring Provider Nurse Practitioner Family; Visit Provider Nurse Practitioner Family
DX: M54.9 Dorsalgia, unspecified (principal)
CPT/HCPCS: 72110

== ENCOUNTER 2020-12-02 13:39 | Observation (INO) | payer OTHER, SELFPAY ==
[2020-11-30 09:37] VITALS: BMI 36.8
[2020-12-02 13:41] VITALS: BP 148/88; PULSE 74; RESP 18; TEMP 35.6; O2SAT 96; BMI 36.5
--- NOTE | 2020-12-02 14:03 | RAD_ITS ---
STUDY: X-RAY - PELVIS AND RIGHT HIP REASON FOR EXAM: Female, 60 years old. right hip pain s/p fall today TECHNIQUE: 3 views of the pelvis and hip. COMPARISON: 01/05/2020 FINDINGS: There is a non-specific bowel gas pattern. Normal visualized soft tissue structures. Normal bilateral iliac wings, sacroiliac joints and visualized sacrum. Normal bilateral superior and inferior pubic rami. Normal pubic symphysis. Normal bilateral ischial tuberosities. Normal visualized femoral head. Normal acetabulum. Normal hip joint. RAD/HIP, UNI W/ Pelvis 2-3 Views IMPRESSION: No fracture or malalignment. Electronically Signed: Valente Hernandez MD ([place]) at 14:29 EST , Service support ,
--- NOTE | 2020-12-02 14:03 | RAD_ITS ---
STUDY: X-RAY - RIGHT WRIST REASON FOR EXAM: Female, 60 years old. Fell today, right wrist pain TECHNIQUE: 3 view(s) of the wrist were obtained. COMPARISON: None. FINDINGS: Transverse dominant fracture of the distal radius with longitudinal component extending to the articular surface. There is no significant displacement. Normal radiocarpal articulation. Normal distal radioulnar articulation. Normal carpal bones. Normal carpal articulations. Normal carpometacarpal articulation of the thumb. Normal second through fifth carpometacarpal articulations. Normal visualized metacarpal bones. Diffuse soft tissue swelling present. RAD/Wrist min 3 Views IMPRESSION: Distal radial fracture with articular surface involvement. Electronically Signed: Valente Hernandez MD ([place]) at 14:30 EST , Service support ,
--- NOTE | 2020-12-02 14:04 | ED.DCSUM_ITS ---
- ER Visit Summary Date of Service: 12/02/20 Chief Complaint: Fall History of Present Illness: The patient is a 60 F who presents after a fall that occurred today. Patient states she slipped on a wooden floor and fell forward. Patient states she landed on her right side. Patient complains of pain in her right wrist and right hip. Patient states her pain is worse with movement. Patient admits to some tingling into her fingers. Patient denies any head injury or loss of consciousness. Patient describes her pain as dull and aching but sharp with movement. Patient denies any other injuries. Physical Examination: Vital signs are stable. Patient is afebrile. Patient is in no acute distress. Musculoskeletal exam reveals tenderness, edema, and ecchymosis over the right wrist. There is no obvious deformity. Range of motion was limited in all motions of the right wrist secondary to pain. Sensation was intact to light touch in the radial, median, and ulnar areas. Strength is 5/5 in the radial, median, and ulnar areas. Radial pulses are equal bilaterally. There is tenderness over the right hip and pelvis. There is no obvious deformity. Range of motion was limited in all motions of the right hip secondary to pain. Pedal pulses are equal bilaterally. Strength is 5/5 bilaterally in the lower extremities. There are no sensory deficits noted. Test Results: Rays of the right wrist were obtained. There are 3 views. On my interpretation, there is a nondisplaced fracture of the distal radius. This is intra-articular into the radiocarpal joint. There is no dislocation or displacement. Radiologist also interpreted the x-rays and agrees. X-rays of the right hip were obtained. There are 3 views. On my interpretation, there is no acute fracture or dislocation. Radiologist also interpreted the x-rays and agrees. Emergency Department Course and Treatment: Patient was given a dose of [place] and Zofran here. Patient was placed in a short arm well-padded custom made AP splint of her right forearm and hand. This was placed by myself. Neurovascular exam was intact before and after placement of the splint. Patient was advised of her x-ray findings. Patient was instructed to use ice to the area. Patient was given a prescription for [place] for pain. Patient was instructed to follow- up with her primary care physician in 5 to 7 days. Patient was also instructed to follow-up with orthopedics in 5 to 7 days. Patient understood and was agreeable with the plan. All questions were answered. Patient was unable to bear weight or ambulate. Because of this, CT scan of her right hip and pelvis was obtained. There is no acute fracture noted. This was interpreted by the radiologist and reviewed by myself. Case was discussed with the hospitalist. She will admit the patient for observation. Patient understood and was agreeable with the plan. All questions were answered. Disposition: Discharge home Impression: 1. Right distal radius fracture 2. Right hip contusion This note was generated with [employer] software. It may contain incorrect words, spelling, and punctuation that were not noted in review of the chart david or to signing ED Disposition - Plan for ED Patient: Disposition: Acute Care Hospital [facility] Diagnosis: Fracture of right distal radius, Contusion of right hip, initial encounter
[2020-12-02] MEDS: Ondansetron ODT 4 MG Tablet PO (14:26)
[2020-12-02] MEDS: HYDROcodone Bitartrate/Apap 5/325 Tablet PO (14:33)
[2020-12-02 16:51] VITALS: BP 146/87; PULSE 76; RESP 16; O2SAT 96
--- NOTE | 2020-12-02 18:04 | ED.RN ---
went in to review dc instructions with pt. pt upset. reports she is not ready to leave. instant that she can not move l right leg due to pain in groin. attempted to assist pt with getting up to side of bed. pt states willing to try. go as far as shifting shoulders and moving left leg some. gasping and reports i literally cant move my leg because of the pain. attempted to assist pt with movement of right leg. and pt gasps in pain, unable to move with assist due to pain. reported this to dr smith. to consult with hospitalist.
--- NOTE | 2020-12-02 18:14 | HP.PCM_ITS ---
Problem List (1) Fracture of right distal radius Status: Acute Qualifiers: Encounter type: initial encounter Fracture type: closed Fracture morphology: unspecified fracture morphology Qualified Code(s): S52.501A - Unspecified fracture of the lower end of right radius, initial encounter for closed fracture (2) Contusion of right hip, initial encounter Status: Acute Comment: Possible R hip fracture, awaiting CT. (3) Anemia Status: Chronic Qualifiers: Anemia type: unspecified type Qualified Code(s): D64.9 - Anemia, unspecified (4) Idiopathic thrombocythemia Status: Chronic Comment: since 12 y/o (5) IBS (irritable bowel syndrome) Status: Chronic Qualifiers: Irritable bowel syndrome type: unspecified Qualified Code(s): K58.9 - Irritable bowel syndrome without diarrhea Comment: due to verapamil (6) Fibromyalgia Status: Chronic (7) Osteoarthritis Status: Chronic Qualifiers: Osteoarthritis location: unspecified site Osteoarthritis type: unspecified Qualified Code(s): M19.90 - Unspecified osteoarthritis, unspecified site (8) Connective tissue disease Status: Chronic (9) Thoracic aortic aneurysm without rupture Status: Chronic (10) Essential hypertension Status: Chronic (11) BMI 36.0-36.9,adult Status: Chronic (12) Moderate persistent allergic asthma Status: Chronic (13) LILIANA (obstructive sleep apnea) Status: Chronic (14) Lupus (systemic lupus erythematosus) Status: Chronic Qualifiers: Systemic lupus erythematosus type: other Systemic lupus erythematosus organ involvement: lung involvement Qualified Code(s): M32.13 - Lung involvement in systemic lupus erythematosus (15) Hyperlipidemia Status: Chronic Qualifiers: Hyperlipidemia type: unspecified Qualified Code(s): E78.5 - Hyperlipidemia, unspecified (16) Supraventricular tachycardia Status: Chronic History of Present Illness Date of Admission: 12/02/20 Chief Complaint: Intractable R hip pain, R wrist fx, fall. The patient is a 60 y/o F w/ PMHx: Obesity, HTN, HLD, IBS, SLE/Connective tissue disease, LILIANA, Idopathic thrombocytopenia, Asthma, Chronic anemia, Hx Thoracic AAA without rupture, Hx SVT who presents to the [facility] ED on 12/02/20 with history of unfortunate mechanical fall, noted she slipped on the wooden floor and fell forward landing on her right side with onset of right hip discomfort and right wrist, worse with attempted movement as well as some mild paresthesias in her right hand following this with no head injury or loss of consciousness. Pain she describes as a dull and aching, more sharp and severe 10 of 10 with movement. In the ED she notes severe pain to the RLE, 10/10 with attempted usage, even being unable to lift her RLE. She notes paresthesias have completely resolved to her RUE/hand. Work-up in the ED included T 96 temporally, heart rate 74, BP 148/88, respiratory rate 18, 96% on room air, right wrist plain film with distal radial fracture with articular surface involvement, plain film of the right hip with no fracture or malalignment. In the ED patient ministered Zofran and [place]. Patient was placed in a short arm well-padded custom made AP splint of her right forearm and hand per the ED physician. Past Medical History Past Medical History (Chronic Problems): Chronic Problems (Last Reviewed 11/30/20 @ 09:39 by Martha Lorenzana) SHERWIN positive (Chronic) Pulmonary HTN (Chronic) Arthralgia (Chronic) LILIANA (obstructive sleep apnea) (Chronic) Vitamin B12 deficiency (Chronic) Vitamin D deficiency (Chronic) Shoulder pain (Chronic) Cervical radiculopathy (Chronic) Allergic rhinitis (Chronic) Asthma (Chronic) Anemia (Chronic) Idiopathic thrombocythemia (Chronic) since 12 y/o Migraines (Chronic) since 14 y/o IBS (irritable bowel syndrome) (Chronic) due to verapamil Fibromyalgia (Chronic) Osteoarthritis (Chronic) Lupus (Chronic) Connective tissue disease (Chronic) Nonrheumatic mitral (valve) prolapse (Chronic) Nonrheumatic mitral (valve) insufficiency (Chronic) Thoracic aortic aneurysm without rupture (Chronic) Essential hypertension (Chronic) BMI 36.0-36.9,adult (Chronic) Moderate persistent allergic asthma (Chronic) 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) LILIANA (obstructive sleep apnea) (Chronic) Lupus (systemic lupus erythematosus) (Chronic) Hyperlipidemia (Chronic) Supraventricular tachycardia (Chronic) Medical History: Medical History (Last Reviewed 11/30/20 @ 09:39 by Martha Lorenzana) SHERWIN positive (Chronic) R76.8 Cough (Acute) R05 Fever (Acute) R50.9 Pulmonary HTN (Chronic) I27.20 Dyspnea (Acute) R06.00 Arthralgia (Chronic) M25.50 LILIANA (obstructive sleep apnea) (Chronic) G47.33 Vitamin B12 deficiency (Chronic) E53.8 Vitamin D deficiency (Chronic) E55.9 Fatigue (Acute) R53.83 Shoulder pain (Chronic) M25.519 Cervical radiculopathy (Chronic) M54.12 Allergic rhinitis (Chronic) J30.9 Onycholysis (Acute) L60.1 Carpal tunnel syndrome, bilateral (Acute) G56.03 Asthma (Chronic) J45.909 Anemia (Chronic) D64.9 Idiopathic thrombocythemia (Chronic) D47.3 since 12 y/o Migraines (Chronic) G43.909 since 14 y/o IBS (irritable bowel syndrome) (Chronic) K58.9 due to verapamil Pneumonia (Acute) J18.9 x3 Fibromyalgia (Chronic) M79.7 Osteoarthritis (Chronic) M19.90 Lupus (Chronic) L93.0 Connective tissue disease (Chronic) M35.9 Nonrheumatic mitral (valve) prolapse (Chronic) I34.1 Nonrheumatic mitral (valve) insufficiency (Chronic) I34.0 Thoracic aortic aneurysm without rupture (Chronic) I71.2 Essential hypertension (Chronic) I10 Moderate persistent allergic asthma (Chronic) J45.40 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) I27.21, M35.9 LILIANA (obstructive sleep apnea) (Chronic) G47.33 Lupus (systemic lupus erythematosus) (Chronic) M32.9 Hyperlipidemia (Chronic) E78.5 Supraventricular tachycardia (Chronic) I47.1 Palpitations (Acute) R00.2 HTN (hypertension) (Inactive) I10 Respiratory tract infection (Inactive) J98.8 Allergies caffeine Allergy (Verified 12/02/20 13:40) Other BLEEDS INTERNALLY, PETECIE cephalexin monohydrate [From Keflex] Allergy (Verified 12/02/20 13:40) Hives TURNS RED erythromycin base Allergy (Verified 12/02/20 13:40) Unknown levofloxacin [From Levaquin] Allergy (Verified 12/02/20 13:40) Unknown Penicillins Allergy (Verified 12/02/20 13:40) Other aspirin Adverse Reaction (Verified 12/02/20 13:41) Shortness of breath NSAIDS (Non-Steroidal Anti-Inflamma Adverse Reaction (Verified 12/02/20 13:40) Shortness of breath promethazine HCl [From Phenergan] Adverse Reaction (Verified 12/02/20 13:40) Other IV PHENERGAN - WHIPLASH LIKE FEELING STATES SHE CAN TAKE PO PHENERGAN Home Medications: Ambulatory Orders Medication Instructions Recorded Aspirin [Aspirin, Baby] 81 mg PO DAILY@0800 07/07/14 Cholecalciferol (Vitamin D3) 800 unit PO DAILY 07/30/17 [Vitamin D3] cyanocobalamin (vitamin B-12) 100 100 mcg PO DAILY 11/30/18 mcg tablet alendronate 70 mg tablet 70 mg PO QWEEK 02/09/19 duloxetine 30 mg capsule,delayed 30 mg PO DAILY 02/09/19 release ketorolac 0.5 % eye drops 1 drp OPHTHALMIC Q6H #5 ml 08/04/20 Hydroxychloroquine [Plaquenil] 200 mg PO BIDCM 09/13/20 fluticasone furoate 200 1 inh INHALATION QDAY #3 device 09/20/20 mcg-vilanterol 25 mcg/dose inhalation powder montelukast 10 mg tablet 10 mg PO DAILY #90 tab 09/20/20 nebivolol 5 mg tablet 5 mg PO QHS #90 tab 11/22/20 tramadol 50 mg tablet 50 mg PO Q8H PRN 11/30/20 Hydrocodone Bitart/Apap 5-325 1 tab PO Q6H PRN PRN 3 Days #10 tab 12/02/20 [[place] 5MG-325MG] Surgical History: Surgical History (Last Reviewed 11/30/20 @ 09:39 by Martha Lorenzana) H/O lumpectomy (Resolved) Z98.890 benign, 1993 History of cardiac cath (Resolved) Z98.890 left, 07/2001 H/O: hysterectomy (Resolved) Z90.710 2004, menorrhagia, benign Surgical History: - - R breast lumpectomy, Hysterectomy. Psychiatric History: Anxiety, Depression [employer] History: - - Prior D+Cs. Lives: Spouse/ Significant Other Smoking Status: Never smoker Tobacco Use: Non-smoker Alcohol: None Drugs: None - *Family History Maternal Family History: Family History (Last Reviewed 11/30/20 @ 09:39 by Martha Lorenzana) Mother Hypertension Heart disease CVA (cerebral vascular accident) Lung disease Thyroid disorder Bleeding disorder Father Cancer Diabetes Asthma Osteoporosis Stomach ulcer History Items: Cancer, Pulmonary Disease Paternal Family History: Family History (Last Reviewed 11/30/20 @ 09:39 by Martha Lorenzana) Mother Hypertension Heart disease CVA (cerebral vascular accident) Lung disease Thyroid disorder Bleeding disorder Father Cancer Diabetes Asthma Osteoporosis Stomach ulcer History Items: High Cholesterol, Heart Disease, Hypertension, Stroke, - - Unc lear type of maternal bleeding disorder and thyroid disorder. Review of Systems Constitutional: Reports: Malaise, Weakness, Fatigue. Denies: Anorexia, Chills, Fever, Weight Change HEENT: Denies: Head Aches, Sinus Congestion, Sinus Drainage Cardiovascular: Denies: Chest Pain, Palpitations Respiratory: Denies: Cough, Shortness of breath at rest, Sputum production Gastrointestinal: Denies: Abdominal Pain, Nausea, Vomiting Genitourinary: Denies: Dysuria Musculoskeletal: Reports: Arm Pain, Hand Pain, Joint Pain, Joint stiffness, Joint swelling, Joint Tenderness, Muscle pain Skin: Denies: Rash, Wounds Neurological: Reports: Numbness, Tingling. Denies: Focal weakness Psychiatric: Reports: Anxiety, Depression. Denies: Homicidal Ideations, Suicidal Ideations Hematologic/ Lymphatic: Reports: Anemia. Denies: Easy Bruising, Easy Bleeding VTE Information - Inpt Only VTE Present on Admission: No VTE Mechan Device Prophylaxis: SCD's VTE Pharm Prophylaxis ordered?: No Reason prophylaxis not ordered:: Medical Contraindication - Hold for possible AM OR pending CT final results. Patient Problems: Active and Suspected Problems (Last Reviewed 11/30/20 @ 09:39 by Martha Lorenzana) Fracture of right distal radius (Acute) Contusion of right hip, initial encounter (Acute) Possible R hip fracture, awaiting CT. Subjective: Patient laying in the ED bed, fatigued, notes ongoing discomfort to the right hip and right lower extremity, pain controlled to the right upper extremity currently, no paresthesias. Objective: Physical Examination: General: awake, alert, oriented x 3 and cooperative, seated upright in the ED bed, fatigued appearing, notes pain ongoing to the right lower extremity. Skin: normal color, turgor, no icterus, cyanosis. HEENT: AT/NC, EOMI, PERRLA, dry MM, no carotid bruits or JVD noted. Lungs: CTA bilaterally, moderate effort, mild decrease BL bases, no rales, ronchi or wheezing. Heart: Regular rate and rhythm; no gallop, rub audible. Abdomen: soft, obese, NTTP, ND, normal BS, no HSM. Extremities: no cyanosis or clubbing, peripheral pulses intact, sensation to the right upper extremity intact, able to go fingers, currently in a padded AP splint, awaiting CT right lower extremity/hip for possible hip fracture concurrently. Neurological: patient awake, alert, oriented x 3; cognitive function intact; pupils equally reactive to light and accomodation; cranial nerves II-XII grossly normal, able to move bilateral upper extremities obviously limited by right distal radial fracture, currently splint in place, right lower extremity movement severely limited secondary to pain and debility per patient, strength accordingly severely globally decreased. Psychiatric: affect appears fatigued, mildly uncomfortable, no acute evidence of depressive or anxiety feelings. - Physical Exam Vitals/I&O's: Vital Signs Temp Pulse Resp BP Pulse Ox 96.0 F L 76 16 146/87 H 96 12/02/20 13:41 12/02/20 16:51 12/02/20 16:51 12/02/20 16:51 12/02/20 16:51 Oxygen Delivery Method Room Air Weight: 240 lb Body Mass Index (BMI) 36.5 Assessment/Plan All Active Problems (Last Reviewed 11/30/20 @ 09:39 by Martha Lorenzana) Fracture of right distal radius (Acute) Contusion of right hip, initial encounter (Acute) Cough (Acute) Fever (Acute) Dyspnea (Acute) Fatigue (Acute) Onycholysis (Acute) Carpal tunnel syndrome, bilateral (Acute) H/O lumpectomy (Resolved) Pneumonia (Acute) History of cardiac cath (Resolved) H/O: hysterectomy (Resolved) Palpitations (Acute) The patient is a 60 y/o F w/ PMHx: Obesity, HTN, HLD, IBS, SLE/Connective tissue disease, LILIANA, Idopathic thrombocytopenia, Asthma, Chronic anemia, Hx Thoracic AAA without rupture, Hx SVT who presents to the [facility] ED on 12/02/20 with history of unfortunate mechanical fall, noted she slipped on the wooden floor and fell forward landing on her right side with onset of right hip discomfort and right wrist, worse with attempted movement as well as some mild paresthesias in her right hand following this with no head injury or loss of consciousness. 1. General debility, RUE Paain w/ R distal radial fracture and R hip pain s/p mechanical fall w/ suspected acute fracture: ED right wrist plain film with distal radial fracture with articular surface involvement, plain film of the right hip with no fracture or malalignment, follow-up CT R hip pending. Orthopedic surgery will need to be consulted if CT results with acute fracture. Will admit to [facility], maintain NPO after midnight in case CT demonstrates fracture, continue gentle IVFs, obtain Mag level, place blank placement if OR intention, monitor I/Os, frequent positioning, fall precautions, pain, anti-emetic regimen. PT/OT following operative intervention. CM consulted for discharge planning. NSQIP calculator with average expected risk post-operative if OR necessary. Will await CT scan and if this is notable then would plan to obtain CBC, CMP, coags, EKG. 2. Hypertension: Continue home regimen including nebivolol with hold parameters, PRN hydralazine. 3. Hyperlipidemia: Not on regimen, defer to outpatient. 4. Anxiety and depression: We will continue patient home Cymbalta regimen. 5. Obesity: Weight loss and lifestyle changes encouraged. 6. Chronic thrombocytopenia: Noted idiopathic since use, most recent CBC 10/04/2020 with platelets at that time 265, will await CT scan as noted above and would expect ED labs including CBC if noted fracture. 7. Chronic anemia: Noted history, most recent CBC 10/04/2020 with a hemoglobin 12.9, MCV 99.8, will await CT scan as noted above and would expect ED labs including CBC if noted fracture. 8. SLE/connective tissue disease: We will continue patient Plaquenil regimen. 9. Chronic asthma, allergic rhinitis: Head of bed once appropriate, I-S, as needed albuterol if needed, continue advair chronic regimen, continue montelukast regimen. 10. History of AAA without rupture: 12/08/2019 CTA chest with stable dilation of the ascending thoracic cord at that time with noted transverse diameter of the ascending aorta measuring 45.5 mm. Encourage continued outpatient monitoring. 11. History SVT: Continue on nebivolol as noted. 12. LILIANA: BIPAP nightly. 13. DVT prophylaxis: SCDs, defer chemoprophylaxis for possible a.m. OR. OBSV E&M: 88160 Initial observation care L3
--- NOTE | 2020-12-02 18:20 | CT_ITS ---
STUDY: CT Lower Extremity W/O Contrast Injection RIGHT REASON FOR EXAM: Female, 60 years old. RADIATION DOSAGE (If Supplied By Facility): CTDIvol = ( 43.06 ) mGy, DLP = ( 1031.70 ) mGycm. Individualized dose optimization techniques were used for this CT.? TECHNIQUE: Axial images were obtained from the acetabulum through the lesser trochanter without contrast. Coronal and sagittal reformats were performed. COMPARISON: X-ray 12/02/2020. FINDINGS: No fracture or dislocation. Right acetabulum, femoral head and neck are intact. Articular joint space is intact. Visualized pelvis is unremarkable. No soft tissue mass or cystic lesion. CT/Extremity Lower without Contra IMPRESSION: Negative CT of the hip. Electronically Signed: Betty Wallace MD at 19:07 EST Tel , Service support ,
--- NOTE | 2020-12-02 18:20 | CT_ITS ---
STUDY: CT PELVIS WITHOUT CONTRAST REASON FOR EXAM: Female, 60 years old. FALL-RT HIP PAIN RADIATION DOSAGE (If Supplied By Facility): CTDIvol = ( 44.51 ) mGy, DLP = ( 1277.79 ) mGycm TECHNIQUE: Transaxial imaging of the pelvis was performed with oral contrast, and without intravenous administration of contrast material. Individualized dose optimization techniques were used for this CT. COMPARISON: X-ray of 12/02/2020. FINDINGS: No fracture or dislocation. Hip joints are well-maintained. No bowel obstruction. Urinary bladder is well distended. No free fluid or hematoma in the pelvis. No soft tissue mass or cystic lesion. CT/Pelvis without IV Contrast IMPRESSION: Normal unenhanced CT of the pelvis. Electronically Signed: Betty Wallace MD at 19:13 EST Tel , Service support ,
[2020-12-02] MEDS: Ondansetron 4 MG/2 ML Vial IV (19:35)
[2020-12-02] MEDS: Morphine 4 MG/ML Syringe IV (19:35)
[2020-12-02 19:41] VITALS: BP 136/99; PULSE 80; RESP 16; TEMP 36.1; O2SAT 97
[2020-12-02 20:19] VITALS: BMI 36.5
[2020-12-02 20:27] VITALS: BMI 36.5
[2020-12-02 21:30] VITALS: BP 140/78; PULSE 66; RESP 17; TEMP 36.6; O2SAT 97
[2020-12-02 21:43] LABS: Absolute Lymphocyte Count 1.45 X10^3/uL (0.83-4.51); Absolute Neutrophil Count 4.8 X10^3/uL (2.0-7.7); Basophil# 0.04 X10^3/uL; Basophil% 0.6 % (0-1); Eosinophil# 0.07 X10^3/uL; Hemoglobin 12.4 g/dL (12.0-15.0); Lymphocyte # 1.45 X10^3/ul (4.0); Lymphocyte % 20.7 % (19-41); Mean Corp Hgb Conc 32.6 g/dL (32-36); Mean Platelet Vol. 10.1 fl (6.2-12.0); Monocyte# 0.62 X10^3/uL; Monocyte% 8.9 % (0-10); NRBC Flagged by Analyzer 0 % (0-5); Neutrophil % 68.5 % (47-70); Platelet Count 281 K/mm3 (150-450); RBC Distribution Width CV 12.9 % (11.6-14.6); RBC Distribution Width SD 45.5 fl (35.1-43.9)
[2020-12-02] MEDS: 0.9% Normal Saline 1,000 ML 100 ML IV (21:56)
[2020-12-02] MEDS: 0.9% Saline Lock 10 ML Syringe IV (21:57)
[2020-12-02] MEDS: tiZANidine HCl 2 MG Tablet PO (21:57)
[2020-12-02] MEDS: Morphine 2 MG/ML Syringe IV (21:58)
[2020-12-02 22:02] LABS: ALB/GLOB Ratio 1.1 RATIO (0.9-2.4); AST(SGOT) 21 U/L (15-37); Alanine Aminotransfer ALT/SGPT 27 U/L (13-56); Albumin, Serum 3.4 g/dL (3.2-5.0); Alkaline Phosphatase 77 U/L (45-117); Anion Gap 6 (5-15); BUN 10 mg/dL (7-18); BUN/Creat Ratio 12.5 RATIO (10-20); Calcium,Total 8.7 mg/dL (8.5-10.1); Chloride 108 mmol/L (98-107); EST Glomerular Filtration Rate 78 mL/min (>60); Est Glom Filt Rate - Afr Amer 94 mL/min (>60); Estimated Creatinine Clearance 76.38 ml/min; Globulin 3.1 g/dL (2.2-4.2); Glucose 131 mg/dL (74-106); Magnesium 2.1 mg/dL (1.6-2.6); Potassium 3.6 mmol/L (3.5-5.1); Protein, Total 6.5 g/dL (6.4-8.2); Sodium Level 141 mmol/L (136-145)
[2020-12-02] MEDS: Lidocaine 5% Patch 2 PATCH TOPICAL (22:58)
[2020-12-03] MEDS: oxyCODONE 5 MG Tablet PO ×2 (01:48→05:50)
--- NOTE | 2020-12-03 01:52 | PCS.PANDOC ---
PANDEMIC DOCUMENTATION INITIATED: Date: 12/02/20 Time: 2030
[2020-12-03 04:40] VITALS: BP 122/73; PULSE 70; RESP 16; TEMP 36.5; O2SAT 97
[2020-12-03] MEDS: Ondansetron 4 MG/2 ML Vial IV (05:20)
--- NOTE | 2020-12-03 06:07 | NURSING ---
Pt having difficulty voiding overnight. Bladder scan for >557ml at 0520. Hospitalist notified and straight cath x1 order placed 0530. Straight cath completed 0545 with 575ml out.
[2020-12-03 06:55] LABS: Absolute Lymphocyte Count 1.14 X10^3/uL (0.83-4.51); Basophil# 0.04 X10^3/uL; Basophil% 0.6 % (0-1); Eosinophils% 1.4 % (0-5); Hematocrit 38.8 % (37-47); Hemoglobin 12.5 g/dL (12.0-15.0); Lymphocyte # 1.14 X10^3/ul (4.0); Lymphocyte % 16.4 % (19-41); Mean Corp Hgb Conc 32.2 g/dL (32-36); Mean Corpuscular Volume 96.3 fL (81-99); Mean Platelet Vol. 10.2 fl (6.2-12.0); Monocyte# 0.69 X10^3/uL; Monocyte% 9.9 % (0-10); NRBC Flagged by Analyzer 0 % (0-5); Neutrophil # 4.96 X10^3/uL (2.7-7.7); Neutrophil % 71.3 % (47-70); Platelet Count 260 K/mm3 (150-450); RBC Distribution Width CV 12.8 % (11.6-14.6); RBC Distribution Width SD 45.9 fl (35.1-43.9); Red Blood Count 4.03 M/mm3 (4.2-5.4)
[2020-12-03] MEDS: Albuterol 2.5 MG/3 ML VIAL.NEB. INHALATION (06:58)
[2020-12-03] MEDS: Budesonide Respules 0.5 MG/2 ML AMPUL.NEB. INHALATION (06:59)
[2020-12-03 07:00] VITALS: PULSE 66; RESP 16
[2020-12-03 07:18] LABS: AST(SGOT) 23 U/L (15-37); Alanine Aminotransfer ALT/SGPT 26 U/L (13-56); Alkaline Phosphatase 71 U/L (45-117); Anion Gap 6 (5-15); BUN 9 mg/dL (7-18); BUN/Creat Ratio 12.3 RATIO (10-20); Calcium,Total 8.2 mg/dL (8.5-10.1); Chloride 106 mmol/L (98-107); Creatinine, Serum 0.73 mg/dL (0.55-1.02); EST Glomerular Filtration Rate 86 mL/min (>60); Est Glom Filt Rate - Afr Amer 105 mL/min (>60); Glucose 109 mg/dL (74-106); Potassium 3.9 mmol/L (3.5-5.1); Sodium Level 138 mmol/L (136-145)
--- NOTE | 2020-12-03 07:40 | PCM.DC ---
- Discharge Diagnoses Current Active Problems: Current Active and Chronic Problems (Last Reviewed 11/30/20 @ 09:39 by Martha Lorenzana) Fracture of right distal radius (Acute) Contusion of right hip, initial encounter (Acute) Possible R hip fracture, awaiting CT. Anemia (Chronic) Idiopathic thrombocythemia (Chronic) since 12 y/o IBS (irritable bowel syndrome) (Chronic) due to verapamil Fibromyalgia (Chronic) Osteoarthritis (Chronic) Connective tissue disease (Chronic) Thoracic aortic aneurysm without rupture (Chronic) Essential hypertension (Chronic) BMI 36.0-36.9,adult (Chronic) Moderate persistent allergic asthma (Chronic) LILIANA (obstructive sleep apnea) (Chronic) Lupus (systemic lupus erythematosus) (Chronic) Hyperlipidemia (Chronic) Supraventricular tachycardia (Chronic) You will use the following diet at home:: Cardiac Your food should be the consistency of: Regular Discharge Activity: May Not Drive Call your doctor if you observe: Fever of 101 or Higher, Numbness or Tingling, Change in Color, Inability to urinate, Inability to have a bowel movement, Using more than one pad per hour, Shortness of breath, Dizziness, Fainting spells, Swelling in the ankles, Chest pain, Prolonged hiccoughing, Increased palpitations (irregular heartbeat), Calf discomfort, Uncontrolled pain Instructions: ED Hip Contusion, ED Forearm Fracture without Reduction Allergies/Adverse Reactions: Allergies caffeine Allergy (Verified 12/02/20 13:40) Other BLEEDS INTERNALLY, PETECIE cephalexin monohydrate [From Keflex] Allergy (Verified 12/02/20 13:40) Hives TURNS RED erythromycin base Allergy (Verified 12/02/20 13:40) Unknown levofloxacin [From Levaquin] Allergy (Verified 12/02/20 13:40) Unknown Penicillins Allergy (Verified 12/02/20 13:40) Other aspirin Adverse Reaction (Verified 12/02/20 13:41) Shortness of breath NSAIDS (Non-Steroidal Anti-Inflamma Adverse Reaction (Verified 12/02/20 13:40) Shortness of breath promethazine HCl [From Phenergan] Adverse Reaction (Verified 12/02/20 13:40) Other IV PHENERGAN - WHIPLASH LIKE FEELING STATES SHE CAN TAKE PO PHENERGAN Medications to take at Discharge Aspirin [Aspirin, Baby] 81 mg PO DAILY@0800 07/07/14 Cholecalciferol (Vitamin D3) [Vitamin D3] 800 unit PO DAILY 07/30/17 cyanocobalamin (vitamin B-12) 100 mcg tablet 100 mcg PO DAILY 11/30/18 alendronate 70 mg tablet 70 mg PO QWEEK 02/09/19 duloxetine 30 mg capsule,delayed release 30 mg PO QHS 02/09/19 Hydroxychloroquine [Plaquenil] 200 mg PO BIDCM 09/13/20 fluticasone furoate 200 mcg-vilanterol 25 mcg/dose inhalation powder 1 inh INHALATION QDAY #3 device 09/20/20 montelukast 10 mg tablet 10 mg PO DAILY #90 tab 09/20/20 nebivolol 5 mg tablet 5 mg PO QHS #90 tab 11/22/20 Hydrocodone Bitart/Apap 5-325 [[place] 5MG-325MG] 1 tab PO Q6H PRN PRN 3 Days #10 tab 12/02/20 Tramadol HCl [Ultram] 50 mg PO Q8H PRN #14 tab 12/03/20 The following prescriptions were given: Hydrocodone Bitart/Apap 5-325 [[place] 5MG-325MG] 1 tab PO Q6H PRN PRN 3 Days #10 tab PRN Reason: Pain Prescription Printed Tramadol HCl [Ultram] 50 mg PO Q8H PRN #14 tab PRN Reason: pain Transmission Status: Sent to [facility] Primary Care Physician: Aisha Aguilar DO [Primary Care Provider] - 5-7 Days Asher Baum MD [STAFF PHYSICIAN] - 3-5 Days Test Results: Test results from this visit will be discussed in further detail at your follow-up appointment, if applicable. Please Follow Up With: Eusebio Cortez DO When: in 1 week
[2020-12-03] MEDS: Montelukast 10 MG Tablet PO (09:52)
[2020-12-03] MEDS: Hydroxychloroquine 200 MG Tablet PO (09:52)
[2020-12-03] MEDS: Lidocaine 5% Patch 2 PATCH TOPICAL (09:55)
[2020-12-03] MEDS: Acetaminophen 325 MG Tablet 650 MG PO (09:58)
[2020-12-03 10:26] VITALS: BP 127/78; PULSE 69; RESP 16; TEMP 36.4; O2SAT 97
--- NOTE | 2020-12-03 10:40 | DS.PCM_ITS ---
Discharge Date and Diagnosis - Problem List Patient Problems: Active and Suspected Problems (Last Reviewed 11/30/20 @ 09:39 by Martha Lorenzana) Fracture of right distal radius (Acute) Contusion of right hip, initial encounter (Acute) Possible R hip fracture, awaiting CT. Date of Admission: 12/02/20 Date of Discharge: 12/03/20 - Primary Discharge Diagnosis Acute Problems: Active Problems (Last Reviewed 11/30/20 @ 09:39 by Martha Lorenzana) Fracture of right distal radius (Acute) Contusion of right hip, initial encounter (Acute) Possible R hip fracture, awaiting CT. 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 Fibromyalgia (Chronic) Osteoarthritis (Chronic) Lupus (Chronic) Connective tissue disease (Chronic) Nonrheumatic mitral (valve) prolapse (Chronic) Nonrheumatic mitral (valve) insufficiency (Chronic) Thoracic aortic aneurysm without rupture (Chronic) Essential hypertension (Chronic) BMI 36.0-36.9,adult (Chronic) Moderate persistent allergic asthma (Chronic) 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 She had severe right hip discomfort and right wrist. In ED, x-rays shows distal radial fracture with articular surface involvement, no fracture or malalignment of the hip and pelvis. As she has severe pain in the right hip, lower extremities and pelvis CT scan was done. It was reported normal with no fracture. Patient already has a prescription of Eldridge from ER physician Dr. Teixeira. She is on tramadol from Dr. Redd but she ran out. Prescription for tramadol 50 mg every 8 hourly as needed total 14 tablets sent to [facility] retail pharmacy. Patient with her comorbidities which includes hypertension, dyslipidemia, anxiety and depression, obesity, chronic thrombocytopenia most probably ITP, anemia of chronic disease, SLE, chronic stable asthma. She also has history of AAA without rupture. 12/08/2019 CTA chest with stable dilation of the ascending thoracic cord at that time with noted transverse diameter of the ascending aorta measuring 45.5 mm. Discharge medication reconciliation done. Discharge follow-up instructions completed. Discharge process discussed with the patient and all questions were answered to patient's satisfaction. Patient has a prescription of Eldridge given by ER physician. Prescription for tramadol given total 14 tablets. She she is also on duloxetine, alendronate and Plaquenil, and vitamin D3. She she is also on baclofen at home Total time spent, exact 35 minutes on discharge meds reconciliation, examination, coordination of care with nurses and ancillary staff, review of imaging and blood test and discussion with the patient on follow-up instructions Clinical Impression(s) from Imaging Studies Hip/Pelvis X-Ray 12/02/20 14:03 IMPRESSION: No fracture or malalignment. Wrist X-Ray 12/02/20 14:03 IMPRESSION: Distal radial fracture with articular surface involvement. Lower Extremity CT 12/02/20 18:20 IMPRESSION: Negative CT of the hip. Electronically Signed: Betty Wallace MD at 19:07 EST Tel , Service support , Pelvis CT 12/02/20 18:20 IMPRESSION: Normal unenhanced CT of the pelvis. Electronically Signed: Betty Wallace MD at 19:13 EST Tel , Service support , Patient Problems: Active and Suspected Problems (Last Reviewed 11/30/20 @ 09:39 by Martha Lorenzana) Fracture of right distal radius (Acute) Contusion of right hip, initial encounter (Acute) Possible R hip fracture, awaiting CT. Objective: Seen and examined. Heart rate and blood pressure in normal range. Patient had fall on the right side and had right wrist fracture intractable right hip pain. Patient also follows pain management Dr. Redd for chronic neck pain Physical exam General: Alert, Oriented x3, Cooperative HEENT: Atraumatic, PERRLA, EOMI, Normocephalic Oral: No Gingival or Mucosal Lesions/ Ulcerations Neck: Supple, No JVD, Negative Carotid Bruits Lungs: Air entry equal in bilateral lung bases. No crepitation/rhonchi Cardiovascular: Regular rate, Regular Rhythm, Normal S1, Normal S2, No murmurs Abdomen: Bowel Sounds Present, Soft, Non Tender, Non-Distended : No renal angle tenderness. No suprapubic tenderness. Extremities: No edema, Capillary Refill Less than 3 Seconds Skin: No rashes, No breakdown Musculoskeletal: Right forearm and wrist on Humberto wrap bandage. Tenderness over right hip mainly near the greater trochanteric area. Range of motion of the right wrist and hip is limited Neurological: Cranial nerves II-XII grossly intact, Deep Tendon Reflexes 2+/4 and Symmetrical, Neuro grossly intact Psych/Mental Status: Normal Affect, Appropriate. - Physical Exam Vitals/I&O's: Vital Signs Temp Pulse Resp BP Pulse Ox 97.7 F L 66 16 122/73 H 97 12/03/20 04:40 12/03/20 07:00 12/03/20 07:00 12/03/20 04:40 12/03/20 04:40 Oxygen Delivery Method Room Air Weight: 240 lb 1.334 oz Body Mass Index (BMI) 36.5 Intake and Output for Last 24 Hours 12/01/20 12/02/20 12/03/20 23:59 23:59 23:59 Intake Total 650 / 650 Output Total 775 / 775 Balance -125 / -125 Laboratory Results 12/02/20 21:20: WBC 7.0, RBC 4.00 L, Hgb 12.4, Hct 38.0, MCV 95.0, MCH 31.0, MCHC 32.6, RDW Std Deviation 45.5 H, RDW Coeff of Titi 12.9, Plt Count 281, MPV 10.1, Immature Gran % (Auto) 0.300, Neut % (Auto) 68.5, Lymph % (Auto) 20.7, [place] % (Auto) 8.9, Eos % (Auto) 1.0, Baso % (Auto) 0.6, Absolute Neuts (auto) 4.8, Absolute Lymphs (auto) 1.45, Nucleated RBC % 0 12/02/20 21:20: Sodium 141, Potassium 3.6, Chloride 108 H, Carbon Dioxide 27.0, Anion Gap 6, BUN 10, Creatinine 0.80, Estim Creat Clear Calc 76.38, Est GFR (MDRD) Af Amer 94, Est GFR (MDRD) Non-Af 78, BUN/Creatinine Ratio 12.5, Glucose 131 H, Calcium 8.7, Magnesium 2.1, Total Bilirubin 0.50, AST 21, ALT 27, Alkaline Phosphatase 77, Total Protein 6.5, Albumin 3.4, Globulin 3.1, Albumin/Globulin Ratio 1.1 12/03/20 06:45: WBC 7.0, RBC 4.03 L, Hgb 12.5, Hct 38.8, MCV 96.3, MCH 31.0, MCHC 32.2, RDW Std Deviation 45.9 H, RDW Coeff of Titi 12.8, Plt Count 260, MPV 10.2, Immature Gran % (Auto) 0.400, Neut % (Auto) 71.3 H, Lymph % (Auto) 16.4 L, [place] % (Auto) 9.9, Eos % (Auto) 1.4, Baso % (Auto) 0.6, Absolute Neuts (auto) 5.0, Absolute Lymphs (auto) 1.14, Nucleated RBC % 0 12/03/20 06:45: Sodium 138, Potassium 3.9, Chloride 106, Carbon Dioxide 26.0, Anion Gap 6, BUN 9, Creatinine 0.73, Estim Creat Clear Calc 83.70, Est GFR (MDRD) Af Amer 105, Est GFR (MDRD) Non-Af 86, BUN/Creatinine Ratio 12.3, Glucose 109 H, Calcium 8.2 L, Total Bilirubin 0.40, AST 23, ALT 26, Alkaline Phosphatase 71, Total Protein 6.0 L, Albumin 3.0 L, Globulin 3.0, Albumin/Globulin Ratio 1.0 Current Medications Acetaminophen (Acetaminophen 325 Mg Tablet) 650 mg PO Q6H PRN PRN PRN Reason: Pain Score 1-10/Temp > 100.7 F Al Hydroxide/Mg Hydroxide (Mag Hydrox/Al Hydrox/Simeth 30 Ml Udc) 30 ml PO Q6H PRN PRN PRN Reason: Gastric Burning Albuterol Sulfate (Albuterol 2.5 Mg/3 Ml Vial.Neb.) 2.5 mg INHALATION Q2H PRN PRN PRN Reason: Dyspnea, wheezing Albuterol Sulfate (Albuterol 2.5 Mg/3 Ml Vial.Neb.) 2.5 mg INHALATION Q6HWA.RT [facility] Last Admin: 12/03/20 06:58 Dose: 2.5 mg Documented by: Budesonide (Budesonide Respules 0.5 Mg/2 Ml Ampul.Neb.) 0.5 mg INHALATION Q12H.RT [facility] Last Admin: 12/03/20 06:59 Dose: 0.5 mg Documented by: Duloxetine HCl (Duloxetine Hcl 30 Mg Capsule) 30 mg PO DAILY [facility] Guaifenesin (Guaifenesin 10 Ml Udc (200mg/10ml)) 20 ml PO Q4H PRN PRN PRN Reason: COUGH Hydralazine HCl (Hydralazine 20 Mg/Ml Vial) 10 mg IV Q4H PRN PRN PRN Reason: SBP > 160 Hydroxychloroquine Sulfate (Hydroxychloroquine 200 Mg Tablet) 200 mg PO BIDCM MARY Sodium Chloride () 250 mls @ 15 mls/hr IV .[id number] PRN PRN Reason: Saline Flush Sodium Chloride () 1,000 mls @ 100 mls/hr IV .Q10H [facility] Last Admin: 12/02/20 21:56 Dose: 100 mls/hr Documented by: Lidocaine (Lidocaine 5% Patch) 2 patch TOPICAL DAILY [facility]; Protocol Last Admin: 12/02/20 22:58 Dose: 2 patch Documented by: Magnesium Hydroxide (Magnesium Hydroxide 30 Ml Udc) 30 ml PO DAILY PRN PRN PRN Reason: Constipation Melatonin (Melatonin 3 Mg Tablet) 3 mg PO QHS PRN PRN PRN Reason: INSOMNIA Montelukast Sodium (Montelukast 10 Mg Tablet) 10 mg PO DAILY [facility] Morphine Sulfate (Morphine 2 Mg/Ml Syringe) 2 mg IV Q3H PRN PRN PRN Reason: Pain Score 6-10 Last Admin: 12/02/20 21:58 Dose: 2 mg Documented by: Nebivolol (Nebivolol Hcl 5 Mg Tablet) 5 mg PO QHS [facility] Last Admin: 12/02/20 21:57 Dose: 5 mg Documented by: Non-Formulary Medication (Ketorolac Tromethamine [Acular]) 1 drp OPHTHALMIC Q6H MARY Ondansetron HCl (Ondansetron 4 Mg/2 Ml Vial) 4 mg IV Q8H PRN PRN PRN Reason: NAUSEA/VOMITING Last Admin: 12/03/20 05:20 Dose: 4 mg Documented by: Oxycodone HCl (Oxycodone 5 Mg Tablet) 5 mg PO Q4H PRN PRN PRN Reason: Pain Score 4-5 Last Admin: 12/03/20 05:50 Dose: 5 mg Documented by: Psyllium Hydrophilic Mucilloid (Psyllium 1 Packet) 1 packet PO DAILY PRN PRN PRN Reason: Constipation Senna/Docusate Sodium (Senna/Docusate Sodium 1 Tablet) 2 tablet PO BID PRN PRN PRN Reason: Constipation Sodium Chloride (0.9% Saline Lock 10 Ml Syringe) 10 - 40 ml IV UD PRN PRN Reason: SALINE FLUSH Last Admin: 12/02/20 21:57 Dose: 10 ml Documented by: Throat Lozenges (Benzocaine/Menthol 1 Lozenge) 1 lozenge MUCOUS MEM Q2H PRN PRN PRN Reason: SORE THROAT Tizanidine HCl (Tizanidine Hcl 2 Mg Tablet) 2 mg PO Q8H PRN PRN PRN Reason: muscle strain Home Medications: Medications to take at Discharge Aspirin [Aspirin, Baby] 81 mg PO DAILY@0800 07/07/14 Cholecalciferol (Vitamin D3) [Vitamin D3] 800 unit PO DAILY 07/30/17 cyanocobalamin (vitamin B-12) 100 mcg tablet 100 mcg PO DAILY 11/30/18 alendronate 70 mg tablet 70 mg PO QWEEK 02/09/19 duloxetine 30 mg capsule,delayed release 30 mg PO QHS 02/09/19 Hydroxychloroquine [Plaquenil] 200 mg PO BIDCM 09/13/20 fluticasone furoate 200 mcg-vilanterol 25 mcg/dose inhalation powder 1 inh INHALATION QDAY #3 device 09/20/20 montelukast 10 mg tablet 10 mg PO DAILY #90 tab 09/20/20 nebivolol 5 mg tablet 5 mg PO QHS #90 tab 11/22/20 Hydrocodone Bitart/Apap 5-325 [Eldridge 5MG-325MG] 1 tab PO Q6H PRN PRN 3 Days #10 tab 12/02/20 Tramadol HCl [Ultram] 50 mg PO Q8H PRN #14 tab 12/03/20 Following Prescriptions Were Given to Patient: Hydrocodone Bitart/Apap 5-325 [Eldridge 5MG-325MG] 1 tab PO Q6H PRN PRN 3 Days #10 tab PRN Reason: Pain Prescription Printed Tramadol HCl [Ultram] 50 mg PO Q8H PRN #14 tab PRN Reason: pain Transmission Status: Received by [facility] Primary Care Physician: Aisha Augilar DO [Primary Care Provider] - 5-7 Days Asher Baum MD [STAFF PHYSICIAN] - 3-5 Days Patient Instructions: ED Hip Contusion, ED Forearm Fracture without Reduction Medical Necessity - Tobacco Use Smoking Status: Never smoker Tobacco Use: Non-smoker Meaningful Use Info Meaningful Use Diagnoses (Choose all that apply): None applicable OBSV E&M: 41296 Observation care discharge
== END 2020-12-03 10:44 | disposition home or self-care (01) ==
LOC: ED 17:42 → MS3 20:02
PROVIDERS: Admitting Provider Family Medicine; Emergency Provider Emergency Medicine; PCP Family Medicine; Visit Provider Internal Medicine
DX: S52.591A Other fractures of lower end of right radius, initial encounter for closed fracture (principal); S70.01XA Contusion of right hip, initial encounter; W01.0XXA Fall on same level from slipping, tripping and stumbling without subsequent striking against object, initial encounter; Y93.9 Activity, unspecified; Y92.9 Unspecified place or not applicable; Y99.9 Unspecified external cause status; E66.9 Obesity, unspecified; I10 Essential (primary) hypertension; E78.5 Hyperlipidemia, unspecified; K58.9 Irritable bowel syndrome, unspecified; M32.9 Systemic lupus erythematosus, unspecified; G47.33 Obstructive sleep apnea (adult) (pediatric); E53.8 Deficiency of other specified B group vitamins; E55.9 Vitamin D deficiency, unspecified; M79.7 Fibromyalgia; D47.3 Essential (hemorrhagic) thrombocythemia; M19.90 Unspecified osteoarthritis, unspecified site; I27.21 Secondary pulmonary arterial hypertension; J45.40 Moderate persistent asthma, uncomplicated; Z79.899 Other long term (current) drug therapy; Z79.82 Long term (current) use of aspirin; F41.9 Anxiety disorder, unspecified; F32.9 Major depressive disorder, single episode, unspecified; I47.1 Supraventricular tachycardia; Z68.36 Body mass index [BMI] 36.0-36.9, adult
CPT/HCPCS: 29125; 72192; 73110; 73502; 73700; 80053; 83735; 85025; 94640; 96361; 96374; 96375; 96376; 97162; 97166; 99218; 99285; J7030; A4216; G0378; J2405

== ENCOUNTER → 2020-12-13 09:27 | Outpatient (CLI) | payer OTHER, SELFPAY ==
[2020-12-02 20:19] VITALS: BMI 36.5
--- NOTE | 2020-12-13 10:00 | RAD_ITS ---
STUDY: X-RAY - RIGHT WRIST REASON FOR EXAM: Follow-up right wrist fracture. TECHNIQUE: 3 view(s) of the wrist were obtained. COMPARISON: Radiographs 12/02/2020. FINDINGS: There is no interval change of the distal radial fracture. Normal radiocarpal articulation. Normal distal radioulnar articulation. Normal carpal bones. Normal carpal articulations. Normal carpometacarpal articulation of the thumb. Normal second through fifth carpometacarpal articulations. Normal visualized metacarpal bones. There is an overlying cast. RAD/Wrist min 3 Views IMPRESSION: No interval change of distal radial fracture. Electronically Signed: Nick Saxena MD at 10:50 EST Tel , Service support ,
== END ==
PROVIDERS: PCP Family Medicine; Referring Provider Physician Assistant; Visit Provider Physician Assistant
DX: S52.571A Other intraarticular fracture of lower end of right radius, initial encounter for closed fracture (principal)
CPT/HCPCS: 73110

== ENCOUNTER → 2020-12-19 13:09 | Outpatient (CLI) | payer OTHER, SELFPAY ==
[2020-12-02 20:19] VITALS: BMI 36.5
--- NOTE | 2020-12-19 13:15 | RAD_ITS ---
STUDY: X-RAY - RIGHT RADIUS AND ULNA REASON FOR EXAM: Female, 60 years old. Follow-up fracture. TECHNIQUE: 2 view(s) of the forearm. COMPARISON: 12/02/2020 and 12/13/2020 FINDINGS: Overlying casting material obscures anatomic detail. There is a stable distal radial fracture. Normal visualized ulna. RAD/Forearm 2 Views IMPRESSION: Stable distal radial fracture. Electronically Signed: Jovanna Horton MD at 14:16 EST Tel , Service support ,
--- NOTE | 2020-12-19 13:15 | RAD_ITS ---
STUDY: X-RAY - RIGHT WRIST REASON FOR EXAM: Female, 60 years old. Follow-up fracture TECHNIQUE: 3 view(s) of the wrist were obtained. COMPARISON: 12/02/2020 and 12/13/2020 FINDINGS: Overlying bandage material obscures anatomic detail. There is a grossly stable distal radial fracture. Normal radiocarpal articulation. Normal distal radioulnar articulation. Normal carpal bones. Normal carpal articulations. Normal carpometacarpal articulation of the thumb. Normal second through fifth carpometacarpal articulations. Normal visualized metacarpal bones. The soft tissue structures are unremarkable. RAD/Wrist min 3 Views IMPRESSION: Stable distal radial fracture. Electronically Signed: Jovanna Horton MD at 14:10 EST Tel , Service support ,
== END ==
PROVIDERS: PCP Family Medicine; Referring Provider Physician Assistant; Visit Provider Physician Assistant
DX: S52.571A Other intraarticular fracture of lower end of right radius, initial encounter for closed fracture (principal)
CPT/HCPCS: 73090; 73110

== ENCOUNTER → 2021-01-16 13:13 | Outpatient (CLI) | payer OTHER, SELFPAY ==
[2020-12-28 10:24] VITALS: BMI 36.7
--- NOTE | 2021-01-16 13:15 | RAD_ITS ---
STUDY: X-RAY - RIGHT WRIST REASON FOR EXAM: Follow-up distal radial fracture. TECHNIQUE: 3 view(s) of the wrist were obtained. COMPARISON: Radiographs 01/16/2021. FINDINGS: There is a distal radial fracture without interval change of alignment and position with increasing sclerosis at the fracture site. Normal radiocarpal articulation. Normal distal radioulnar articulation. Normal carpal bones. Normal carpal articulations. Normal carpometacarpal articulation of the thumb. Normal second through fifth carpometacarpal articulations. Normal visualized metacarpal bones. There is an overlying cast. RAD/Wrist min 3 Views IMPRESSION: Healing distal radial fracture without interval change of alignment and position. Electronically Signed: Nick Saxena MD at 14:02 EST Tel , Service support ,
--- NOTE | 2021-01-16 13:15 | RAD_ITS ---
STUDY: X-RAY - RIGHT RADIUS AND ULNA REASON FOR EXAM: Follow-up radial fracture. TECHNIQUE: 2 view(s) of the forearm. COMPARISON: Radiographs 12/19/2020. FINDINGS: There is an overlying cast. There is no interval change of the distal radial fracture. Normal visualized ulna. RAD/Forearm 2 Views IMPRESSION: No interval change of distal radial fracture. Electronically Signed: Nick Saxena MD at 13:41 EST Tel , Service support ,
== END ==
PROVIDERS: PCP Family Medicine; Referring Provider Physician Assistant; Visit Provider Physician Assistant
DX: S52.571A Other intraarticular fracture of lower end of right radius, initial encounter for closed fracture (principal)
CPT/HCPCS: 73090; 73110

== ENCOUNTER → 2021-02-08 08:55 | Outpatient (CLI) | payer OTHER, SELFPAY ==
[2020-12-28 10:24] VITALS: BMI 36.7
== END ==
PROVIDERS: PCP Family Medicine; Referring Provider Family Medicine; Visit Provider Family Medicine
DX: Z20.822 Contact with and (suspected) exposure to COVID-19 (principal)
CPT/HCPCS: 36415; 86769

== ENCOUNTER 2021-03-21 15:00 | Outpatient (RCR) | payer OTHER, SELFPAY ==
[2020-12-28 10:24] VITALS: BMI 36.7
--- NOTE | 2021-02-01 10:07 | HP.OTEVAL ---
Patient's Visit Information MIKKI SURESH is a 60 year old F, referred to Occupational Therapy by Foreign Mata PA-C, with a diagnosis of rigth wrist intra-articular fx. Date of Evaluation: 02/01/21 Occupational Therapist: Margot Díaz, HELDER/Felicita, CHT - Subjective This 60 year old female was seen for OT eval with dx of right wrist intrarticular lower end radius fax. DOI Dec.02. cast removed on 01/18/21. pt states she has noticed a dececrease ROM and feling of popping a ulnar side of wrist. pt works in medical records and reports a decrease in ind. with ADls and IADls. pt would like to know what she can do return to PLOF. - Pain right wrist 4 Pain Intensity Range: 1, 6 - ROM Forearm: right supination 50* pronation 50* left WNL Wrist: right 60/30 left 70/70 ROM Comments: right RD [address] 15 UD 30 - Strength Supervisor Curing Room: right 15# left 55# Lateral Pinch: right 6# left 14# Tripod Pinch: rgiht 4# left 14# - Sensation Sensation Comments: feels like road rash - Quick DASH-Disab of Arm,Shoulder& Hand Quick DASH Score: 48.3325 - Goals Goal:: PT will demo an increase in group activities aide strength by 20# to increase independent with basic occupations of daily living to return pt to PLOF by D/C. Pt will demo an increase in lateral and tripod pinch by 2# to increase pts independent with opening baggies, containers at PLOF by D/C. Goal:: Pt will demo an increase in right wrist ROM by 20*or greater to return pt to PLOF with grooming, dressing and home mtg tasks by D/C. Pt will demo an increase in forearm supination by 60* or greater to increase pts ind. With ADls and IADLS by d/c Goal:: pt will report no pain greater than 1/10 with use of right UE with ADls and IADls by d/c - Rehabilitation General Assessment: Pt demo with limited right wrist ROM and strength increasing need of assist with ADls and IADLs at this time. pt would benefit from skilled OT services 1xweek for 4-6 weeks to return pt to PLOF. Today therapist ed. pt on PROM, AROM use of heat/ice prn- pt given handouts and agree to POC. Rehabilitation Potential: Good - Anticipated Interventions A/AAROM/PROM, Strengthening, Triggerpoint Release, Modalities, Orthoses, Ergonomic Education - Visit Plan Frequency: 1-2x /Week Duration: 4-6 Weeks TEXT: Thank you for the opportunity to evaluate your patient. For Medicare and Medicare HMO plans, please review the plan of care and approve it. It will need to be FAXED BACK to us at [phone] for Medicare purposes. Please let me know if there are questions or concerns regarding this plan of care. Physician Signature: Date:
--- NOTE | 2021-03-01 10:28 | HP.OTREVAL ---
Foreign Mata PA-C, It has been my pleasure to treat MIKKI SURESH over the last 5 visits for rigth wrist intra-articular fx. Please see the progress note below for an update on the occupational therapy plan of care! Subjective: pt arrives to session 12weeks 5 days post fx - pt continues to struggle with pain/strength and end range of motion this limits use of her right UE with ADLs and IADLs. Objective/Function: right wrist ROM 60/40 initial 60/30. right forearm sup 70* initial 50*pronation WNL initial 50*. right wrist RD 20 initial was 15*. right wrist UD 25 iinitial was 15*. right stone sandblaster strength 25# a increase from 15#. right lateral pinch 12# a increase from 6#. right tripod pinch 8# increase from 4#. pt has made good gains with her ROM and strength but continues to demo limitations with pain and weakness- pt would benefit from cont. of OT services 1-2x week for 3 weeks to assist in strength return for increase ind. with ADLs and IADls. Plan Frequency: 1-2x /Week Duration: 2-4 Weeks Plan: cont with PRE. BTE and UB free wts Goals - Goals Patient Goals: Use Hand/Wrist/Arm Normally Again Goal:: PT will demo an increase in stone sandblaster strength by 20# to increase independent with basic occupations of daily living to return pt to PLOF by D/C. Pt will demo an increase in lateral and tripod pinch by 2# to increase pts independent with opening baggies, containers at PLOF by D/C. Goal:: Pt will demo an increase in right wrist ROM by 20*or greater to return pt to PLOF with grooming, dressing and home mtg tasks by D/C. Pt will demo an increase in forearm supination by 60* or greater to increase pts ind. With ADls and IADLS by d/c Goal:: pt will report no pain greater than 1/10 with use of right UE with ADls and IADls by d/c Anticipated Interventions Anticipated Interventions: A/AAROM/PROM, Strengthening, Triggerpoint Release, Modalities, Orthoses, Ergonomic Education Please do not hesitate to contact me at [phone] by phone or if you have questions or concerns regarding this new plan of care! Sincerely, Margot Díaz, OTR/L, CHT
--- NOTE | 2021-07-08 15:58 | HP.OTDCSUM_ITS ---
It has been my pleasure to treat MIKKI SURESH under orders from Foreign Mata PA-C, for the diagnosis of rigth wrist intra-articular fx for a total of 8 visit(s). Please see the following information for a summary of their discharge status. % Improvement: 75 Objective/Function: right wrist ROM 60/40 initial 60/30. right forearm sup 70* initial 50*pronation WNL initial 50*. right wrist RD 20 initial was 15*. right wrist UD 25 iinitial was 15*. right communications billing analyst strength 25# a increase from 15#. right lateral pinch 12# a increase from 6#. right tripod pinch 8# increase from 4#. pt has made good gains with her ROM and strength but continues to demo limitations with pain and weakness- pt would benefit from cont. HEP and return normal use of right UE. Patient Goals: Use Hand/Wrist/Arm Normally Again Goal:: PT will demo an increase in communications billing analyst strength by 20# to increase independent with basic occupations of daily living to return pt to PLOF by D/C. Pt will demo an increase in lateral and tripod pinch by 2# to increase pts independent with opening baggies, containers at PLOF by D/C. Goal:: Pt will demo an increase in right wrist ROM by 20*or greater to return pt to PLOF with grooming, dressing and home mtg tasks by D/C. Pt will demo an increase in forearm supination by 60* or greater to increase pts ind. With ADls and IADLS by d/c Goal:: pt will report no pain greater than 1/10 with use of right UE with ADls and IADls by d/c Plan: D/C Discharge Comments: pt was seen for 8 OT visits. pt has met OT goals and will cont with her HEP and return to using her right UE with ADLs and IADLs If there are questions or concerns regarding this patient's occupational therapy, please fell free to call me at [phone]. Thank you for the referral of this patient. Sincerely, Margot Díaz, OTR/L, CHT
== END 2021-03-21 19:00 | disposition home or self-care (01) ==
LOC: OT 15:00
PROVIDERS: PCP Family Medicine; Referring Provider Physician Assistant; Visit Provider Physician Assistant
DX: S52.571D Other intraarticular fracture of lower end of right radius, subsequent encounter for closed fracture with routine healing (principal)
CPT/HCPCS: 97035; 97110; 97140; 97166; 97530

== ENCOUNTER → 2021-05-17 12:26 | Outpatient (CLI) | payer OTHER, SELFPAY ==
[2020-12-28 10:24] VITALS: BMI 36.7
--- NOTE | 2021-05-17 13:00 | MRI_ITS ---
STUDY: MRA OF THE HEAD WITHOUT CONTRAST REASON FOR EXAM: Female, 61 years old. Aneurysm evaluation TECHNIQUE: 3-D [id number] (TOF) imaging was performed with MIPs. The study was performed unenhanced. COMPARISON: None. FINDINGS: Bilateral base of skull carotids, bifurcations, anterior and middle cerebral arteries and proximal branches are patent. Posterior communicating arteries are large bilaterally Posterior cerebral arteries and superior cerebellar arteries and proximal branches are patent. Vertebral arteries, basilar arteries are patent. MRI/MRA Head ONLY without Contrast IMPRESSION: 1. Unremarkable morongo of [place] and proximal branches. Electronically Signed: Vikki Diaz MD at 17:27 EDT Tel , Service support ,
== END ==
PROVIDERS: PCP Family Medicine
DX: I71.2 Thoracic aortic aneurysm, without rupture (principal)
CPT/HCPCS: 70544

== ENCOUNTER 2021-07-05 14:44 | Emergency (ER) | payer OTHER, SELFPAY ==
[2021-07-05 14:45] VITALS: BP 194/104; PULSE 75; RESP 18; TEMP 36.6; O2SAT 98; BMI 36.5
--- NOTE | 2021-07-05 15:00 | RAD_ITS ---
STUDY: X-RAY - LEFT HAND, ATTENTION FOURTH FINGER REASON FOR EXAM: Female, 61 years old. SMASHED RING FINGER PAIN TECHNIQUE: 3 view(s) of the finger were obtained. COMPARISON: None. FINDINGS: Normal metacarpal head. Normal metacarpophalangeal joint. Normal proximal phalanx. Normal middle phalanx. Normal distal phalanx. Normal proximal interphalangeal joint. Normal distal interphalangeal joint. Soft tissue swelling overlying the proximal phalanx and proximal interphalangeal joint. RAD/Finger(s) Min 2 Views IMPRESSION: Soft tissue swelling. No evidence of fracture or dislocation. Electronically Signed: Leif Dodd MD at 15:23 EDT , Service support ,
--- NOTE | 2021-07-05 15:01 | ED.RN ---
RING CUT OFF PT TOLERATED WELL. RING PUT IN CONTAINER AND GIVEN TO PT
--- NOTE | 2021-07-05 15:46 | EDS_ITS ---
HPI History of Present Illness Chief Complaint: Upper Extremity Injury Informant: patient Narrative Narrative: Patient cut her left nondominant hand ring finger between a [employer] truck into a dresser. She has soreness and some bruising in that area. She is not on anticoagulation. Range of motion sensation is intact. No other injury. Motion and pressing makes it worse. Rest makes it better. [facility] Medical History (Updated 07/05/21 @ 15:[address] Fran Hendrickson MD) Allergic rhinitis SHERWIN positive Anemia Arthralgia Asthma Carpal tunnel syndrome, bilateral Cervical radiculopathy Connective tissue disease Cough Dyspnea Essential hypertension Fatigue Fever Fibromyalgia HTN (hypertension) Hyperlipidemia IBS (irritable bowel syndrome) Idiopathic thrombocythemia Lupus Lupus (systemic lupus erythematosus) Migraines Moderate persistent allergic asthma Nonrheumatic mitral (valve) insufficiency Nonrheumatic mitral (valve) prolapse Onycholysis LILIANA (obstructive sleep apnea) LILIANA (obstructive sleep apnea) Osteoarthritis Palpitations Pneumonia 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 Pulmonary HTN Respiratory tract infection Shoulder pain Supraventricular tachycardia Thoracic aortic aneurysm without rupture Vitamin B12 deficiency Vitamin D deficiency Home Medications aspirin 81 mg PO DAILY@0800 07/07/14 [History Last Taken 12/02/20 08:00] cholecalciferol (vitamin D3) 800 unit PO DAILY 07/30/17 [History Last Taken 07/30/17] cyanocobalamin (vitamin B-12) 100 mcg tablet 100 mcg PO DAILY 11/30/18 [History Last Taken Unknown] alendronate 70 mg tablet 70 mg PO QWEEK 02/09/19 [History Last Taken 12/02/20 08:00] duloxetine 30 mg capsule,delayed release 30 mg PO QHS 02/09/19 [History Last Taken 12/01/20 20:00] hydroxychloroquine 200 mg PO BIDCM 09/13/20 [History Last Taken 12/02/20 08:00] fluticasone furoate 200 mcg-vilanterol 25 mcg/dose inhalation powder 1 inh INHALATION QDAY #3 device 09/20/20 [Rx Last Taken 12/02/20 08:00] montelukast 10 mg tablet 10 mg PO DAILY #90 tab 09/20/20 [Rx Last Taken 12/02/20 08:00] nebivolol 5 mg tablet 5 mg PO QHS #90 tab 11/22/20 [Rx Last Taken 12/01/20 20: 00] tramadol 50 mg PO Q8H PRN #14 tab 12/03/20 [Rx Last Taken Unknown] albuterol sulfate 90 mcg/actuation aerosol inhaler 2 puff INHALATION Q4H PRN #8.5 g 04/08/21 [Rx Last Taken Unknown] Allergy/AdvReac Type Severity Reaction Status Date / Time caffeine Allergy Other Verified 07/05/21 14:46 cephalexin monohydrate Allergy Hives Verified 07/05/21 14:46 [From Keflex] erythromycin base Allergy Unknown Verified 07/05/21 14:46 levofloxacin [From Levaquin] Allergy Unknown Verified 07/05/21 14:46 Penicillins Allergy Other Verified 07/05/21 14:46 aspirin AdvReac Shortness Verified 07/05/21 14:46 of breath NSAIDS (Non-Steroidal AdvReac Shortness Verified 07/05/21 14:46 Anti-Inflamma of breath promethazine HCl AdvReac Other Verified 07/05/21 14:46 [From Phenergan] Family History Mother Hypertension Heart disease CVA (cerebral vascular accident) Lung disease Thyroid disorder Bleeding disorder Father Cancer Diabetes Asthma Osteoporosis Stomach ulcer Surgical History H/O lumpectomy H/O: hysterectomy History of cardiac cath Social History Smoking Status: Never smoker alcohol intake: current alcohol intake frequency: a few times a month Alcohol type: wine substance use type: does not use ROS ROS ED Constitutional Constitutional ED: Denies chills Musculoskeletal Musculoskeletal: Reports other Details: See history of present illness. Integumentary Denies abscess or Abrasions Neurologic Neurologic: Denies paresthesias or weakness Hematologic/Lymphatic Hematologic/Lymphatic: Denies easy bleeding or easy bruising EXAM Physical Exam Const Vital Signs: 07/05/21 14:45 Temperature 97.8 F Temperature Source Temporal Pulse Rate 75 Respiratory Rate 18 Blood Pressure 194/104 H Blood Pressure Mean 134 Pulse Ox 98 Oxygen Delivery Method Room Air Positive well nourished and well developed General Appearance ED: well developed and NAD HEENT atraumatic Resp normal respiratory effort Extremity Extremity Narrative: Patient has ecchymosis mostly to the volar aspect of her left ring finger. There is small amounts of contusion to the other fingers. None of the others have any pain with palpation range of motion. There is some mild diffuse tenderness of the left ring finger though. Extensor as well as both flexor tendons are intact. No deformity. Skin Skin Narrative: Contusions but no lacerations. Lesions: no lesions Rashes: no rashes MDM MDM MDM Narrative Medical decision making narrative: Three-view x-ray looked at by me and read by radiology shows some mild soft tissue swelling but no sign of fracture or dislocation. Her ring has been removed. She would prefer to have a splint just for some protection. We did discuss that this needs to come off frequently for range of motion exercises to avoid stiffness. Ice rest [id number] meds would be appropriate. Return with stiffness, further swelling, numbness tingling or any other concerns. She may need follow-up. There is still risk of occult ligamentous injury that can develop over time. Radiography Diagnostic Testing: Radiology Impression Finger X-Ray 07/05/21 15:00 IMPRESSION: Soft tissue swelling. No evidence of fracture or dislocation. Electronically Signed: Leif Dodd MD at 15:23 EDT , Service support , Discharge Plan Triage Chief Complaint: Upper Extremity Injury ED Provider: Fran Hendrickson Dx/Rx/DC Orders Clinical Impression: Contusion of left ring finger Instructions: ED Finger Contusion Prescriptions: No Action alendronate [Fosamax] 70 mg tablet 70 mg PO QWEEK RF: 0 duloxetine [Cymbalta] 30 mg capsule,delayed release(DR/EC) 30 mg PO QHS RF: 0 cyanocobalamin (vitamin B-12) 100 mcg tablet 100 mcg PO DAILY RF: 0 aspirin 81 MG tablet,chewable 81 mg PO DAILY@0800 RF: 0 cholecalciferol (vitamin D3) 400 UNIT capsule 800 unit PO DAILY RF: 0 hydroxychloroquine 200 MG tablet 200 mg PO BIDCM RF: 0 tramadol 50 mg tablet 50 mg PO Q8H PRN (Reason: pain) Qty: 14 RF: 0 montelukast 10 mg tablet 10 mg PO DAILY Qty: 90 RF: 3 Breo Ellipta 200-25 mcg/dose blister with device 1 inh INHALATION QDAY Qty: 3 RF: 3 nebivolol 5 mg tablet 5 mg PO QHS Qty: 90 RF: 3 albuterol sulfate 90 mcg/actuation HFA aerosol inhaler 2 puff inhalation Q4H PRN (Reason: shortness of breath or wheezing) Qty: 8.5 RF: 6 Primary Care Provider: Aisha Aguilar Referrals: Aisha Aguilar DO [Primary Care Provider] - 1 Week if not improving Disposition Disposition: Home, Self Care
== END 2021-07-05 16:15 | disposition home or self-care (01) ==
LOC: ED 15:57
PROVIDERS: Emergency Provider Emergency Medicine; PCP Family Medicine
DX: S60.042A Contusion of left ring finger without damage to nail, initial encounter (principal); J45.909 Unspecified asthma, uncomplicated; X58.XXXA Exposure to other specified factors, initial encounter; Z79.899 Other long term (current) drug therapy; Z79.82 Long term (current) use of aspirin
CPT/HCPCS: 73140; 99283

== ENCOUNTER → 2021-08-22 09:40 | Outpatient (CLI) | payer OTHER, SELFPAY ==
[2020-12-28 10:24] VITALS: BMI 36.7
--- NOTE | 2021-08-22 09:43 | BI_ITS ---
MAMMOGRAPHY - BILATERAL SCREENING 3-D TOMOSYNTHESIS REASON FOR EXAM: Female, 61 years old. SCREENING PERTINENT HISTORY: No significant family history. TECHNIQUE: 2-D mammograms and 3-D Tomosynthesis of the breast (s) were performed. CAD was performed. COMPARISON: 08/16/2020 FINDINGS: The breast composition is heterogeneously dense that can obscure small breast masses. Scattered benign calcifications are seen. No dense spiculated masses or suspicious microcalcifications are identified. No architectural distortion is identified. There is no skin thickening or retraction. There has been no significant change since the prior study. BI/SCRN MAMM (CAD)W/MEHRAN BILAT IMPRESSION: No mammographic signs of malignancy. Routine yearly mammograms recommended. ASSESSMENT CATEGORY: BIRADS Category 1: Negative. A letter regarding these results will be sent to the patient by the facility within 30 days. FOLLOW UP RECOMMENDATION: Yearly follow up mammogram recommended. (A) Approximately 10% of breast cancers are not detected by mammography. A normal mammogram should not delay biopsy of a clinically suspicious abnormality. Electronically Signed: Fahad Durham MD at 11:15 EDT Tel , Service support ,
== END ==
PROVIDERS: PCP Family Medicine; Referring Provider Family Medicine; Visit Provider Family Medicine
DX: Z12.31 Encounter for screening mammogram for malignant neoplasm of breast (principal)
CPT/HCPCS: 77063; 77067

== ENCOUNTER → 2022-05-05 | Outpatient (CLI) | payer OTHER, SELFPAY ==
--- NOTE | 2022-05-05 07:44 | CT_ITS ---
STUDY: CTA CHEST REASON FOR EXAM: Female, 62 years old. Thoracic aortic aneurysm without rupture RADIATION DOSAGE (If Supplied By Facility): CTDIvol = ( 15.03 ) mGy, DLP = ( 618.09 ) mGycm TECHNIQUE: The examination was performed with the intravenous administration of IV 100mL Isovue-370. Post-processing of the angiographic images was performed, with multiplanar reformation and 3D reconstruction. Individualized dose optimization techniques were used for this CT. COMPARISON: CTA chest from 12/08/2019 FINDINGS: Lungs/pleura: The central airways are patent. Dependent atelectasis. No focal consolidations or suspicious masses. No pleural effusion or pneumothorax. Mediastinum: Heart size is normal. No pericardial effusion. No mediastinal mass or lymphadenopathy. Pulmonary arteries: Normal course and caliber. Aorta: Stable aneurysmal dilatation of the ascending aorta measuring up to 4.5 cm in greatest dimension at the level of the main pulmonary artery. Minimal arteriosclerotic calcifications. No dissection. Other vasculature: Unremarkable. Bones/soft tissues: Minimal degenerative changes in the spine. No destructive osseous lesions. Visualized upper abdomen: Fatty infiltration of the pancreas. Otherwise unremarkable. CT/CTA Chest W/WO Contrast IMPRESSION: Stable aneurysmal dilatation of the ascending aorta. Overall, stable exam since 12/08/2019. Electronically Signed: Stephan Barkley, at 9:19 EDT ,
[2022-05-05 08:00] LABS: CREATININE FINGERSTICK < 0.9 mg/dL (0.55-1.02); EGFR FINGERSTICK > 60.0000 mL/min (>60)
== END | disposition home or self-care (01) ==
LOC: CT 07:43
PROVIDERS: PCP Family Medicine; Referring Provider Internal Medicine Cardiovascular Disease; Visit Provider Internal Medicine Cardiovascular Disease
DX: I71.2 Thoracic aortic aneurysm, without rupture (principal)
CPT/HCPCS: 71275; Q9967

== ENCOUNTER → 2022-09-02 | Outpatient (CLI) | payer OTHER, SELFPAY ==
--- NOTE | 2022-09-02 07:54 | BI_ITS ---
MAMMOGRAPHY - BILATERAL SCREENING REASON FOR EXAM: Female, 62 years old. Routine annual screening examination. PERTINENT HISTORY: Sister with breast cancer. Remote right excisional breast biopsy. TECHNIQUE: Digital bilateral breast mehran (3D mammographic acquisition) in the CC and MLO projections. 2-D mediolateral oblique (MLO) and craniocaudad (CC) views of both breasts were obtained. CAD: Full Field Digital Mammography with Computer Added Detection was performed. COMPARISON: Comparison is made with prior study dated 08/22/2021 and 08/16/2020. FINDINGS: Breast Composition: The breasts are heterogeneously dense, which may obscure small masses. There is a 9.4 mm well-defined nodule in the medial aspect of the right breast. Correlation with ultrasound recommended. Stable small benign-appearing bilateral axillary lymph nodes. No other significant abnormalities are identified. There has been no significant change since the prior study. BI/SCRN MAMM (CAD)W/MEHRAN BILAT IMPRESSION: 9.4 mm well-defined nodule in the medial aspect of the right breast as seen on the craniocaudad view. Correlation with ultrasound is recommended. ASSESSMENT CATEGORY: BIRADS Category 0: Incomplete. Need additional imaging evaluation. A letter regarding these results will be sent to the patient by the facility within 30 days. Approximately 10% of breast cancers are not detected by mammography. A normal mammogram should not delay biopsy of a clinically suspicious abnormality. [id number] Electronically Signed: Leif Dodd MD at 9:19 EDT ,
== END | disposition home or self-care (01) ==
LOC: OPBI 07:52
PROVIDERS: PCP Family Medicine; Visit Provider Family Medicine
DX: Z12.31 Encounter for screening mammogram for malignant neoplasm of breast (principal)
CPT/HCPCS: 77063; 77067

== ENCOUNTER → 2022-09-03 | Outpatient (CLI) | payer OTHER, SELFPAY ==
--- NOTE | 2022-09-03 09:19 | US_ITS ---
STUDY: ULTRASOUND BREAST - RIGHT REASON FOR EXAM: Female, 62 years old. Abnormal mammogram TECHNIQUE: Axial and longitudinal images of the RIGHT breast were performed with a high resolution ultrasound transducer. # OF IMAGES: 23 COMPARISON: Mammogram from 09/02/2022 FINDINGS: RIGHT Breast: There is a lesion in the upper inner quadrant. The lesion measures 0.8 x 0.8 x 0.5 cm in size. Clock notation: 1 o''clock position. Distance from nipple: 7.0 cm. Posterior Enhancement: No. Posterior Shadowing: None. Margins: Sharp and smooth. Echogenicity: Hypoechoic. Compression effect on Shape: No change. No demonstrated vascularity within the lesion, no architectural distortion. Findings suggest a likely fibroadenoma but a 6 month follow-up is recommended to assess stability since this was a new finding on the most recent mammogram. 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 A letter regarding these results will be sent to the patient by the facility within 30 days. Electronically Signed: Jacky Rivas MD at 10:18 EDT ,
== END | disposition home or self-care (01) ==
PROVIDERS: PCP Family Medicine; Visit Provider Family Medicine
DX: N63.10 Unspecified lump in the right breast, unspecified quadrant (principal)
CPT/HCPCS: 76642

== ENCOUNTER → 2023-01-08 | Outpatient (CLI) | payer OTHER, SELFPAY ==
[2023-01-08 10:19] LABS: AST(SGOT) 43 U/L (15-37); Alanine Aminotransfer ALT/SGPT 57 U/L (13-56); Albumin, Serum 3.7 g/dL (3.2-5.0); Alkaline Phosphatase 92 U/L (45-117); Cholesterol 191 mg/dL (200); Globulin 3.2 g/dL (2.2-4.2); High Density Lipoprotein 44 mg/dL; Protein, Total 6.9 g/dL (6.4-8.2); Triglycerides 103 mg/dL; Very Low Density Lipoprotein 21 mg/dL (5-40)
== END | disposition home or self-care (01) ==
LOC: LAB 08:57
PROVIDERS: PCP Family Medicine; Visit Provider Internal Medicine Cardiovascular Disease
DX: E78.00 Pure hypercholesterolemia, unspecified (principal); I71.20 Thoracic aortic aneurysm, without rupture, unspecified
CPT/HCPCS: 36415; 80061; 80076

== ENCOUNTER → 2023-03-10 | Outpatient (CLI) | payer OTHER, SELFPAY ==
--- NOTE | 2023-03-10 10:45 | CT_ITS ---
STUDY: CTA HEAD AND NECK WITH CONTRAST REASON FOR EXAM: Female, 63 years old. Vision loss -- concerns for a TIA RADIATION DOSAGE (If Supplied By Facility): CTDIvol = ( 32.43 ) mGy, DLP = ( 1575.54 ) mGycm TECHNIQUE: CT angiography was performed with a multi-detector CT scanner. Data acquisition was obtained from the skull base through the vertex following intravenous administration of IV 100mL Isovue-370. MIP images were reconstructed from the axial data set. Post-processing of the angiographic images was performed, with multiplanar reformation and 3D reconstruction. Individualized dose optimization techniques were used for this CT. COMPARISON: No relevant priors. FINDINGS: Normal bilateral petrous carotid arteries. Normal right cavernous carotid artery with a normal supraclinoid bifurcation. Normal left cavernous carotid artery with a normal supraclinoid bifurcation. Normal right A1 segments of the anterior cerebral artery. Normal left A1 segments of the anterior cerebral artery. Normal intact anterior communicating artery (ACOM). Normal bilateral A2 segments of the anterior cerebral arteries. Normal right M1 and M2 segments of the middle cerebral arteries, with a normal M1 bifurcation. Normal left M1 and M2 segments of the middle cerebral arteries, with a normal M1 bifurcation. Normal right posterior communicating artery (PCOM). Normal left posterior communicating artery (PCOM). Normal bilateral vertebral arteries. Normal basilar artery with a normal basilar bifurcation. The visualized bilateral superior cerebellar (SCA) arteries are normal. Normal bilateral P1, P2 and visualized P3 segments of the posterior cerebral arteries. There is no demonstrated aneurysm of the [place]. There is no demonstrated abnormality of the visualized brain. AORTIC ARCH: Normal visualized aortic arch. Normal origins of the brachiocephalic, left common carotid, and left subclavian arteries. RIGHT CAROTID ARTERIES: Normal right common carotid artery (CCA). Normal right common carotid bulb. Normal origin of the right internal carotid (ICA) artery without a hemodynamically significant stenosis. Normal visualized cervical portion of the right internal carotid artery. Normal origin of the right external carotid artery (ECA). LEFT CAROTID ARTERIES: Normal left common carotid artery (CCA). Normal left common carotid bulb. Normal origin of the left internal carotid (ICA) artery without a hemodynamically significant stenosis. Normal visualized cervical portion of the left internal carotid artery. Normal origin of the left external carotid artery (ECA). VERTEBRAL ARTERIES: Normal bilateral vertebral arteries. CT/CTA Head AND Neck W/ Contrast IMPRESSION: Normal CTA Head and neck with contrast. Electronically Signed: Leif Dodd MD at 12:05 EDT ,
== END | disposition home or self-care (01) ==
LOC: CT 10:32
PROVIDERS: PCP Family Medicine; Referring Provider Physician Assistant Medical; Visit Provider Physician Assistant Medical
DX: H54.7 Unspecified visual loss (principal); I47.1 Supraventricular tachycardia; R55 Syncope and collapse
CPT/HCPCS: 70496; 70498; Q9967

== ENCOUNTER → 2023-03-10 | Outpatient (CLI) | payer OTHER, SELFPAY ==
[2023-03-10 07:12] LABS: Hematocrit 43.1 % (37-47); Mean Corp Hgb Conc 32.5 g/dL (32-36); Mean Corpuscular Hgb 31.5 pg (27.0-32.0); Mean Corpuscular Volume 97.1 fL (81-99); Mean Platelet Vol. 9.6 fl (6.2-12.0); Platelet Count 316 K/mm3 (150-450); RBC Distribution Width CV 13.1 % (11.6-14.6); RBC Distribution Width SD 46.9 fl (35.1-43.9); Red Blood Count 4.44 M/mm3 (4.2-5.4); White Blood Count 7.1 K/mm3 (4.4-11.0)
[2023-03-10 07:47] LABS: Anion Gap 3 (5-15); BUN 13 mg/dL (7-18); BUN/Creat Ratio 16.2 RATIO (10-20); Calcium,Total 9.1 mg/dL (8.5-10.1); Chloride 105 mmol/L (98-107); EST Glomerular Filtration Rate 77 mL/min (>60); Est Glom Filt Rate - Afr Amer 93 mL/min (>60); Glucose 137 mg/dL (74-106); Magnesium 2.2 mg/dL (1.6-2.6); Potassium 3.7 mmol/L (3.5-5.1); Sodium Level 136 mmol/L (136-145); T4 Total, Thyroxin 7.9 ug/dL (4.8-13.9); Thyroid Stim Hormone (TSH) 1.52 uIU/mL (0.358-3.74)
[2023-03-10 13:02] LABS: Hemoglobin A1c 5.3 % (3.8-5.6)
== END | disposition home or self-care (01) ==
LOC: LAB 06:55
PROVIDERS: PCP Family Medicine; Referring Provider Physician Assistant Medical; Visit Provider Physician Assistant Medical
DX: I47.1 Supraventricular tachycardia (principal); R00.2 Palpitations; R55 Syncope and collapse; R53.83 Other fatigue
CPT/HCPCS: 36415; 80048; 83036; 83735; 84436; 84443; 85027

== ENCOUNTER → 2023-03-20 | Outpatient (CLI) | payer OTHER, SELFPAY ==
--- NOTE | 2023-03-20 08:44 | ECHOD_ITS ---
Reason For Study: Vision Loss Procedure This was a 2D Doppler, Color Flow transthoracic echocardiogram. Exam performed in department. Left Ventricle Normal LV size. Mild concentric left ventricular hypertrophy. The left ventricular ejection fraction is 65 %. Diastolic function is indeterminate. Right Ventricle Normal right ventricle. Atria The left atrium is moderately enlarged. Normal right atrium. Bubble contrast study negative for right to left interatrial shunt. Mitral Valve Mild (1+) mitral valve insufficiency. Tricuspid Valve Mild tricuspid valve insufficiency. Normal pulmonary artery pressure. Aortic Valve Trisinus/trileaflet aortic valve. Mild (1+) aortic valve insufficiency. Pulmonic Valve The pulmonic valve is not well visualized. Trivial pulmonic valve insufficiency. Great Vessels The ascending aorta is moderate-severely dilated. Pericardium/Pleural No pericardial effusion. Medication Performed a rapid injection of agitated mix of 9 cc saline and 1cc air to assess for atrial septal defect. MMode/2D Measurements & Calculations LVIDd: 5.2 cm IVSd: 1.2 cm Ao root diam: 4.8 cm LVIDs: 2.8 cm LVPWd: 1.1 cm RVDd: 3.0 cm FS: 45.7 % LAV(MOD-bp): 96.4 ml LVAd ap4: 25.7 cm2 SV(MOD-sp4): 50.4 ml LAV(MOD-bp) Indexed: 45.1 ml/m2 LVLd ap4: 7.2 cm LAV(MOD-sp2): 91.5 ml EDV(MOD-sp4): 76.7 ml LAV(MOD-sp4): 95.9 ml EDV(sp4-el): 78.3 ml LVAs ap4: 13.2 cm2 LVLs ap4: 6.0 cm ESV(MOD-sp4): 26.3 ml ESV(sp4-el): 24.4 ml EF(MOD-sp4): 65.7 % EF(sp4-el): 68.9 % SV(sp4-el): 53.9 ml LA A4 area: 28.2 cm2 LA dimension(2D): 4.4 cm RA A4 area: 14.1 cm2 Time Measurements MV dec time: 0.23 sec Doppler Measurements & Calculations MV E max rupesh: 75.7 cm/sec Lat Peak E' Rupesh: 13.6 cm/sec Med Peak E' Rupesh: 7.9 cm/sec MV A max rupesh: 39.3 cm/sec E/E' lat: 5.6 E/E' med: 9.5 MV E/A: 1.9 MV dec slope: 330.5 cm/sec2 Ao V2 max: 146.1 cm/sec LV V1 max: 139.1 cm/sec Ao max P.5 mmHg LV V1 max P.7 mmHg Ao V2 mean: 111.5 cm/sec Ao mean P.4 mmHg Ao V2 VTI: 35.2 cm PA V2 max: 77.0 cm/sec TR max rupesh: 270.1 cm/sec TR max P.2 mmHg ECHO/Echo Complete Interpretation Summary Mild concentric left ventricular hypertrophy. The left ventricular ejection fraction is 65 %. Diastolic function is indeterminate. The left atrium is moderately enlarged. Mild (1+) mitral valve insufficiency. Mild tricuspid valve insufficiency. Mild (1+) aortic valve insufficiency. The ascending aorta is moderate-severely dilated. Recommend CT scan for further evaluation. Bubble contrast study negative for right to left interatrial shunt. Ordering Physician: Margot Oseguera Referring Physician: Aisha Aguilar Performed By: Raquel Fernandez, RDCS, RVT
== END | disposition home or self-care (01) ==
PROVIDERS: PCP Family Medicine; Referring Provider Physician Assistant Medical; Visit Provider Physician Assistant Medical
DX: H54.7 Unspecified visual loss (principal); I47.1 Supraventricular tachycardia; R55 Syncope and collapse
CPT/HCPCS: 93306; A4216

== ENCOUNTER → 2023-05-08 | Outpatient (CLI) | payer OTHER, SELFPAY ==
--- NOTE | 2023-05-08 09:17 | US_ITS ---
EXAM: Diagnostic unilateral right breast ultrasound REASON FOR EXAM: Female, 63 years old. Follow-up of right breast lesion. PERTINENT HISTORY: Sister with breast cancer. Remote right excisional biopsy. TECHNIQUE: Real-time stafford scale and color sonographic images were obtained of the right upper inner breast was performed. COMPARISON: Diagnostic right breast ultrasound from 09/03/2022. Bilateral screening mammogram from 09/02/2022. FINDINGS: Ultrasound findings: Stable appearance of a 0.8 x 0.8 x 0.5 cm hypoechoic lesion in the right breast upper inner quadrant at the 1:00 position, approximately 7 cm posterior to the nipple. This lesion again demonstrates sharp and smooth borders, no posterior enhancement, and no posterior shadowing. US/Breast Limited Unilateral IMPRESSION: Stable hypoechoic lesion in the right breast which probably corresponds to a benign fibroadenoma. Six-month follow-up is again recommended to assess stability. ASSESSMENT CATEGORY: BIRADS Category 3: Probably Benign - Short-Interval Follow-up Suggested. A letter regarding these results will be sent to the patient by the facility within 30 days. Recommendation: 6 month follow-up with ultrasound is recommended. Approximately 10% of breast cancers are not detected by mammography. A normal mammogram should not delay biopsy of a clinically suspicious abnormality. Electronically Signed: Stephan Barkley DO at 13:55 EDT ,
== END | disposition home or self-care (01) ==
LOC: OPUS 09:12
PROVIDERS: PCP Family Medicine; Referring Provider Family Medicine; Visit Provider Family Medicine
DX: D24.1 Benign neoplasm of right breast (principal)
CPT/HCPCS: 76642

== ENCOUNTER → 2023-05-14 | Outpatient (CLI) | payer OTHER, SELFPAY ==
--- NOTE | 2023-05-14 12:43 | STRESSREP_ITS ---
Stress Test Report Date: 05/14/2023 Procedure: Pharmacologic stress nuclear imaging study Indications: Arrhythmia Consent: Per the patient Procedure: The patient underwent pharmacologic (Regadenoson 0.4mg ) evaluation with a peak heart rate of 86 beats per minute (54%predicted maximal heart rate) and a peak blood pressure of 150/94 mmHg. The baseline ECG demonstrated normal sinus. The peak pharmacologic ECG demonstrated no ischemic change. There were no cardiac dysrhythmias pretest, during pharmacologic infusion, or recovery. There was no complaint of chest discomfort during pharmacologic infusion or recovery. The patient was injected with 14.7 millicuries of technetium 99m Cardiolite and subsequently rest SPECT Cardiolite nuclear imaging was obtained in the horizontal long, vertical long, and short axis views. The patient underwent pharmacologic (Regadenoson) evaluation. The patient was injected with 45 millicuries of technetium 99m Cardiolite and subsequently stress SPECT Cardiolite nuclear imaging was obtained in the horizontal long, vertical long, and short axis views. A gated Cardiolite study at peak stress was obtained. The examination was stopped secondary to completion of protocol. Rest and stress SPECT Cardiolite nuclear imaging status post realignment, normalization, and attenuation correction demonstrate no fixed or reversible perfusion defect. There is end systolic thickening and brightening. The gated Cardiolite study demonstrates myocardial thickening and inward wall motion. The reported LVEF is 76%. Impression: 1. Pharmacologic (Regadenoson) evaluation 2. Peak pharmacologic ECG with no ischemic change. 3. There were no cardiac dysrhythmias pretest, during pharmacologic infusion, or recovery. 5. Rest and stress SPECT Cardiolite nuclear imaging demonstrate relative uniform tracer uptake and myocardial perfusion appearing within normal limits. 6. The gated Cardiolite study reports an LVEF of 76%. This note was generated with [employer] software. It may contain incorrect words, spelling, and punctuation that were not noted in checking the note before signing.
== END | disposition home or self-care (01) ==
PROVIDERS: PCP Family Medicine; Referring Provider Physician Assistant Medical; Visit Provider Physician Assistant Medical
DX: I47.29 Other ventricular tachycardia (principal)
CPT/HCPCS: 78452; 93017; A9500; J2785

== ENCOUNTER → 2023-06-26 | Outpatient (CLI) | payer OTHER, SELFPAY ==
--- NOTE | 2023-06-26 13:37 | CT_ITS ---
STUDY: CTA CHEST REASON FOR EXAM: Female, 63 years old. Thoracic aortic aneurysm without rupture RADIATION DOSAGE (If Supplied By Facility): CTDIvol = ( 11.25 ) mGy, DLP = ( 674.11 ) mGycm TECHNIQUE: The examination was performed with the intravenous administration of IV 100mL Isovue-370. Post-processing of the angiographic images was performed, with multiplanar reformation and 3D reconstruction. Individualized dose optimization techniques were used for this CT. COMPARISON: Comparison is made with prior study dated May 05, 2022. FINDINGS: Normal enhancement of the main pulmonary artery and right and left pulmonary arteries. Normal enhancement of the bilateral peripheral pulmonary arteries. There is no demonstrated pulmonary embolism. There is aneurysmal dilatation of the ascending aorta. The transverse diameter of the ascending aorta measures 44.5 mm''s. Essentially stable. There is no demonstrated aortic dissection. Normal heart and pericardium. No coronary artery calcification. Normal mediastinum. Normal hilar regions. Normal visualized trachea and bronchi. The lungs are well expanded. Minimal linear atelectasis at the lung bases. Normal pleura. Normal chest wall structures. There are mild degenerative changes of thoracic spine. Normal visualized upper abdomen. CT/CTA Chest W/WO Contrast IMPRESSION: Stable aneurysmal dilatation of the root of the ascending thoracic aorta. Electronically Signed: Leif Dodd MD at 15:02 EDT ,
[2023-06-26 14:21] LABS: CREATININE FINGERSTICK < 0.9 mg/dL (0.55-1.02); EGFR FINGERSTICK > 60.0000 mL/min (>60)
== END | disposition home or self-care (01) ==
LOC: CT 13:36
PROVIDERS: PCP Family Medicine; Referring Provider Physician Assistant Medical; Visit Provider Physician Assistant Medical
DX: I71.20 Thoracic aortic aneurysm, without rupture, unspecified (principal); E78.5 Hyperlipidemia, unspecified
CPT/HCPCS: 71275; Q9967

== ENCOUNTER → 2023-09-09 | Outpatient (CLI) | payer OTHER, SELFPAY ==
--- NOTE | 2023-09-09 11:48 | BI_ITS ---
MAMMOGRAPHY - BILATERAL SCREENING REASON FOR EXAM: Female, 63 years old. Routine annual screening examination. PERTINENT HISTORY: Sister with breast cancer. TECHNIQUE: Digital bilateral breast mehran (3D mammographic acquisition) in the CC and MLO projections. 2-D mediolateral oblique (MLO) and craniocaudad (CC) views of both breasts were obtained. CAD: Full Field Digital Mammography with Computer Added Detection was performed. COMPARISON: Comparison is made with prior study dated September 02, 2022 and August 22, 2021. FINDINGS: Breast Composition: The breasts are heterogeneously dense, which may obscure small masses. There are no dominant masses or suspicious calcifications. Previously seen well-defined nodule medial aspect of the right breast is decreased in size. It presently measures 6.7 mm. No other significant abnormalities are identified. BI/SCRN MAMM (CAD)W/MEHRAN BILAT IMPRESSION: Stable bilateral screening mammogram. Yearly follow-up mammogram recommended. (A) ASSESSMENT CATEGORY: BIRADS Category 2: Benign. A letter regarding these results will be sent to the patient by the facility within 30 days. Approximately 10% of breast cancers are not detected by mammography. A normal mammogram should not delay biopsy of a clinically suspicious abnormality. [id number] Electronically Signed: Leif Dodd MD at 12:42 EDT ,
== END | disposition home or self-care (01) ==
LOC: OPBI 11:41
PROVIDERS: PCP Family Medicine; Referring Provider Family Medicine; Visit Provider Family Medicine
DX: Z12.31 Encounter for screening mammogram for malignant neoplasm of breast (principal)
CPT/HCPCS: 77063; 77067

== ENCOUNTER → 2024-03-10 | Outpatient (CLI) | payer OTHER, SELFPAY | END | disposition home or self-care (01) | LOC: SL 09:22 | PROVIDERS: PCP Family Medicine; Visit Provider Nurse Practitioner Acute Care | DX: Z00.00 Encounter for general adult medical examination without abnormal findings (principal) ==

== ENCOUNTER → 2024-03-21 | Outpatient (CLI) | payer OTHER, SELFPAY ==
[2024-03-21 09:08] LABS: Absolute Lymphocyte Count 1.78 X10^3/uL (0.83-4.51); Basophil# 0.05 X10^3/uL; Basophil% 0.9 % (0-1); Eosinophil# 0.17 X10^3/uL; Eosinophils% 3.1 % (0-5); Hematocrit 39.6 % (37-47); Hemoglobin 12.8 g/dL (12.0-15.0); Lymphocyte # 1.78 X10^3/ul (0.83-4.51); Lymphocyte % 32.8 % (19-41); Mean Corp Hgb Conc 32.3 g/dL (32-36); Mean Corpuscular Hgb 31.8 pg (27.0-32.0); Mean Corpuscular Volume 98.3 fL (81-99); Mean Platelet Vol. 9.8 fl (6.2-12.0); Monocyte# 0.44 X10^3/uL; Monocyte% 8.1 % (0-10); NRBC Flagged by Analyzer 0 % (0-5); Neutrophil # 2.98 X10^3/uL (2.7-7.7); Neutrophil % 54.9 % (47-70); Platelet Count 290 K/mm3 (150-450); RBC Distribution Width CV 12.9 % (11.6-14.6); RBC Distribution Width SD 46.3 fl (35.1-43.9); Red Blood Count 4.03 M/mm3 (4.2-5.4); White Blood Count 5.4 K/mm3 (4.4-11.0)
[2024-03-21 09:13] LABS: Color, Urine Yellow (Yellow); Glucose, Dipstick Normal (Normal); Ketone-Dipstick Negative (Negative); Leukocyte Esterase-Dipstick 100 /ul (Negative); Nitrite-Dipstick Negative (Negative); Occult Blood-Urine Negative /ul (Negative); Protein-Dipstick Negative (Negative); Specific Gravity, Urine 1.015 (1.002-1.030); Urine Bilirubin Dipstick Negative (Negative); Urine Clarity Sl. Cloudy (Clear); Urine Urobilinogen Normal (Normal)
[2024-03-21 09:32] LABS: ALB/GLOB Ratio 1.2 RATIO (0.9-2.4); AST(SGOT) 27 U/L (15-37); Alanine Aminotransfer ALT/SGPT 35 U/L (13-56); Albumin, Serum 3.6 g/dL (3.2-5.0); Alkaline Phosphatase 83 U/L (45-117); Anion Gap 3 (5-15); BUN 11 mg/dL (7-18); BUN/Creat Ratio 13.9 RATIO (10-20); CRP 3.63 mg/L (0.0-3.0); Calcium,Total 9.2 mg/dL (8.5-10.1); Chloride 107 mmol/L (98-107); Creatinine, Serum 0.79 mg/dL (0.55-1.02); EST Glomerular Filtration Rate 78 mL/min (>60); Est Glom Filt Rate - Afr Amer 94 mL/min (>60); Globulin 3.1 g/dL (2.2-4.2); Glucose 108 mg/dL (74-106); Potassium 3.9 mmol/L (3.5-5.1); Protein, Total 6.7 g/dL (6.4-8.2); Sodium Level 138 mmol/L (136-145)
[2024-03-21 09:39] LABS: Erythrocyte Sedimentation Rate 7 mm/hr (0-30)
[2024-03-21 10:39] LABS: Protein, Urine (Random) 13.9 mg/dL (<11.9); Protein:Creat Ratio 105 mg/g CRE (0-200)
[2024-03-22 11:09] LABS: Complement C3 163 mg/dL (82-167)
[2024-03-22 13:08] LABS: Anti-dsDNA Ab <1 IU/mL (0-9)
== END | disposition home or self-care (01) ==
LOC: LAB 08:40
PROVIDERS: PCP Family Medicine
DX: R76.8 Other specified abnormal immunological findings in serum (principal); M32.8 Other forms of systemic lupus erythematosus; Z79.899 Other long term (current) drug therapy
CPT/HCPCS: 36415; 80053; 81002; 82570; 84156; 85025; 85652; 86140; 86160; 86225

== ENCOUNTER → 2024-07-05 | Outpatient (CLI) | payer OTHER, SELFPAY ==
--- NOTE | 2024-07-05 08:06 | BD_ITS ---
STUDY: DUAL ENERGY X-RAY ABSORPTIOMETRY / DXA REASON FOR EXAM: Female, 64 years old. M810 TECHNIQUE: Bone Mineral Density (BMD) measurements of lumbar spine and bilateral hips were obtained. COMPARISON: Comparison is made with prior study dated August 16, 2020. FINDINGS: Lumbar Spine (L1-L4): g/cm2 (0.807) / T-score (-1.9) / Z-score (-0.3) Findings are suggestive of osteopenia with a moderate fracture risk. Left Femur Total: g/cm2 (0.806) / T-score (-1.1) / Z-score (0.0) Left Femoral Neck: g/cm2 (0.682) / T-score (-1.5) / Z-score (-0.1) Right Femur Total: g/cm2 (0.807) / T-score (-1.1) / Z-score (0.0) Right Femoral Neck: g/cm2 (0.666) / T-score (-1.7) / Z-score (-0.2) The T-Scores on the most recent prior examination were: Lumbar Spine (L1-L4): There has been worsening of bone density since the previous examination. Left Femur Total: which represents an improvement of 0.1%. Right Femur Total: which represents an improvement of 6%. BD/Dexa Bone Density Study IMPRESSION: The patient is considered osteopenic as outlined below according to World [employer] Organization (WHO) criteria with a moderate fracture risk. There has been improvement of bone density since the previous examination. Reference Information: The T-score is the number of standard deviations above or below the standard which is normal for young adults at their peak bone mineral density. The World Health Organization (WHO) interprets the T-scores as follows: Above -1 Normal bone density Between -1 and -2.5 Osteopenia Equal to / or below -2.5 Osteoporosis As a practical clinical guideline, osteopenia may be graded as follows: Mild -1 through -1.5 Moderate -1.6 through -2.0 Severe -2.1 through -2.4 The Z-score is the number of standard deviations above or below age-matched controls. A Z-score of less than -1.5 would be considered abnormal. References: 1. NIH Osteoporosis and Related Bone Diseases www osteo.org 2. International Society for Clinical Densitometry www iscd.org 3. National Osteoporosis Foundation www nof.org Electronically Signed: Leif Dodd MD at 7:51 EDT ,
== END | disposition home or self-care (01) ==
LOC: OPBD 08:05
PROVIDERS: PCP Family Medicine
DX: M81.0 Age-related osteoporosis without current pathological fracture (principal)
CPT/HCPCS: 77080

== ENCOUNTER → 2024-07-11 | Outpatient (CLI) | payer OTHER, SELFPAY ==
--- NOTE | 2024-07-11 08:11 | CT_ITS ---
STUDY: CTA CHEST REASON FOR EXAM: Female, 64 years old. Known TAA RADIATION DOSAGE (If Supplied By Facility): CTDIvol = ( 15.60 ) mGy, DLP = ( 712.94 ) mGycm TECHNIQUE: The examination was performed with the intravenous administration of IV 100mL Isovue-370. Post-processing of the angiographic images was performed, with multiplanar reformation and 3D reconstruction. Individualized dose optimization techniques were used for this CT. COMPARISON: Comparison is made with prior study June 26, 2023. FINDINGS: Normal enhancement of the main pulmonary artery and right and left pulmonary arteries. Normal enhancement of the bilateral peripheral pulmonary arteries. There is no demonstrated pulmonary embolism. There is aneurysmal dilatation of the ascending aorta. The transverse diameter of the ascending aorta measures 44.8 mm''s. Essentially stable. There is no demonstrated aortic dissection. Normal heart and pericardium. No significant coronary artery calcifications seen. Normal mediastinum. Normal hilar regions. Normal visualized trachea and bronchi. The lungs are well expanded. Minimal linear scarring at the left lung base. Normal pleura. Normal chest wall structures. Normal osseous structures. Normal visualized upper abdomen. CT/CTA Chest W/WO Contrast IMPRESSION: Essentially stable examination. The root of the ascending thoracic aorta measures 44.8 mm. Electronically Signed: Leif Dodd MD at 14:46 EDT ,
[2024-07-11 08:38] LABS: CREATININE FINGERSTICK < 1.0 mg/dL (0.55-1.02); EGFR FINGERSTICK > 60.0000 mL/min (>60)
== END | disposition home or self-care (01) ==
LOC: CT 08:11
PROVIDERS: PCP Family Medicine; Referring Provider Physician Assistant Medical; Visit Provider Physician Assistant Medical
DX: I71.20 Thoracic aortic aneurysm, without rupture, unspecified (principal)
CPT/HCPCS: 71275; Q9967

== ENCOUNTER → 2024-09-12 | Outpatient (CLI) | payer OTHER, SELFPAY ==
--- NOTE | 2024-09-12 12:35 | BI_ITS ---
MAMMOGRAPHY - BILATERAL SCREENING REASON FOR EXAM: Female, 64 years old. Routine annual screening examination. PERTINENT HISTORY: Sister with breast cancer. Prior right excisional breast biopsy. TECHNIQUE: Digital bilateral breast mehran (3D mammographic acquisition) in the CC and MLO projections. 2-D mediolateral oblique (MLO) and craniocaudad (CC) views of both breasts were obtained. CAD: Full Field Digital Mammography with Computer Added Detection was performed. COMPARISON: Comparison is made with prior study dated September 09, 2023 and September 02, 2022. FINDINGS: Breast Composition: The breasts are heterogeneously dense, which may obscure small masses. There are no dominant masses or suspicious calcifications. Stable small benign-appearing bilateral axillary lymph nodes. No other significant abnormalities are identified. There has been no significant change since the prior study. BI/SCRN MAMM (CAD)W/MEHRAN BILAT IMPRESSION: Stable bilateral screening mammogram. Yearly follow-up mammogram recommended. (A) ASSESSMENT CATEGORY: BIRADS Category 2: Benign. A letter regarding these results will be sent to the patient by the facility within 30 days. Approximately 10% of breast cancers are not detected by mammography. A normal mammogram should not delay biopsy of a clinically suspicious abnormality. [id number] Electronically Signed: Leif Dodd MD at 14:32 EDT ,
== END | disposition home or self-care (01) ==
LOC: OPBI 12:32
PROVIDERS: PCP Family Medicine; Referring Provider Family Medicine; Visit Provider Family Medicine
DX: Z12.31 Encounter for screening mammogram for malignant neoplasm of breast (principal)
CPT/HCPCS: 77063; 77067

== ENCOUNTER → 2025-03-02 | Outpatient (CLI) | payer OTHER, SELFPAY ==
[2025-03-02 09:18] LABS: Bacteria 0 SEEN /hpf (None Seen); Mucous, Urine 0 SEEN /hpf (<or=2+)
[2025-03-02 09:36] LABS: Absolute Lymphocyte Count 1.51 X10^3/uL (0.83-4.51); Absolute Neutrophil Count 2.4 X10^3/uL (2.0-7.7); Basophil# 0.05 X10^3/uL; Basophil% 1.1 % (0-1); Eosinophil# 0.15 X10^3/uL; Eosinophils% 3.3 % (0-5); Hematocrit 37.3 % (37-47); Hemoglobin 12.2 g/dL (12.0-15.0); Lymphocyte # 1.51 X10^3/ul (0.83-4.51); Lymphocyte % 33.5 % (19-41); Mean Corp Hgb Conc 32.7 g/dL (32-36); Mean Corpuscular Hgb 31.2 pg (27.0-32.0); Mean Corpuscular Volume 95.4 fL (81-99); Mean Platelet Vol. 9.5 fl (6.2-12.0); Monocyte# 0.41 X10^3/uL; Monocyte% 9.1 % (0-10); NRBC Flagged by Analyzer 0 % (0-5); Neutrophil # 2.38 X10^3/uL (2.7-7.7); Neutrophil % 52.8 % (47-70); Platelet Count 260 K/mm3 (150-450); RBC Distribution Width CV 12.8 % (11.6-14.6); RBC Distribution Width SD 44.8 fl (35.1-43.9); Red Blood Count 3.91 M/mm3 (4.2-5.4); White Blood Count 4.5 K/mm3 (4.4-11.0)
[2025-03-02 10:02] LABS: Protein, Urine (Random) 10.8 mg/dL (0.0-12.0)
[2025-03-02 10:39] LABS: ALB/GLOB Ratio 1.6 RATIO (0.9-2.4); AST(SGOT) 27 U/L (<=31); Alanine Aminotransfer ALT/SGPT 20 U/L (<=34); Alkaline Phosphatase 91 U/L (35-104); Anion Gap 10 (5-15); BUN 10 mg/dL (4-19); BUN/Creat Ratio 12.8 RATIO (10-20); Calcium,Total 9.2 mg/dL (7.6-11.0); Chloride 105 mmol/L (98-108); EST Glomerular Filtration Rate 83 (>60); Globulin 2.5 g/dL (2.2-4.2); Glucose 106 mg/dL (70-99); Potassium 3.8 mmol/L (3.3-5.1); Protein, Total 6.5 g/dL (5.9-8.4); Sodium Level 139 mmol/L (133-145); Total Bilirubin 0.43 mg/dL (0.00-1.30)
[2025-03-02 10:40] LABS: Vitamin D,25 Hydroxy 30.2 ng/mL (30-100)
[2025-03-03 04:07] LABS: Complement C3 157 mg/dL (82-167)
[2025-03-03 16:38] LABS: Color, Urine Yellow (Yellow); Glucose, Dipstick Normal (Normal); Ketone-Dipstick Negative (Negative); Leukocyte Esterase-Dipstick Negative /ul (Negative); Nitrite-Dipstick Negative (Negative); Occult Blood-Urine Negative /ul (Negative); Protein-Dipstick 15 mg/dl (Negative); Urine Bilirubin Dipstick Negative (Negative); Urine Clarity Clear (Clear); Urine Urobilinogen Normal (Normal); Urine pH 6.5 (5.0 - 8.0)
[2025-03-03 18:01] LABS: Red Blood Cells-Urine 0-5 SEEN /hpf (0-5); White Blood Cells 0-5 SEEN /hpf (0-5)
[2025-03-03 18:02] LABS: Squamous Epithelial Cells - UA 0-5 SEEN /hpf (5-10)
[2025-03-07 14:08] LABS: Anti-dsDNA Ab <1 IU/mL (0-9)
== END | disposition home or self-care (01) ==
PROVIDERS: PCP Family Medicine; Referring Provider Internal Medicine; Visit Provider Internal Medicine
DX: M25.50 Pain in unspecified joint (principal); E55.9 Vitamin D deficiency, unspecified
CPT/HCPCS: 36415; 80053; 81001; 82306; 82570; 84156; 85025; 86160; 86225; 87086; 87088

== ENCOUNTER → 2025-03-11 | Outpatient (CLI) | payer OTHER, SELFPAY ==
[2025-03-11 09:48] LABS: Absolute Lymphocyte Count 1.52 X10^3/uL (0.83-4.51); Absolute Neutrophil Count 2.3 X10^3/uL (2.0-7.7); Basophil# 0.04 X10^3/uL; Basophil% 0.9 % (0-1); Eosinophil# 0.13 X10^3/uL; Eosinophils% 2.9 % (0-5); Hematocrit 39.3 % (37-47); Hemoglobin 12.8 g/dL (12.0-15.0); Lymphocyte # 1.52 X10^3/ul (0.83-4.51); Lymphocyte % 34.4 % (19-41); Mean Corp Hgb Conc 32.6 g/dL (32-36); Mean Corpuscular Hgb 31.3 pg (27.0-32.0); Mean Corpuscular Volume 96.1 fL (81-99); Monocyte# 0.44 X10^3/uL; NRBC Flagged by Analyzer 0 % (0-5); Neutrophil # 2.28 X10^3/uL (2.7-7.7); Neutrophil % 51.6 % (47-70); Platelet Count 293 K/mm3 (150-450); RBC Distribution Width CV 12.7 % (11.6-14.6); RBC Distribution Width SD 45.1 fl (35.1-43.9); Red Blood Count 4.09 M/mm3 (4.2-5.4); White Blood Count 4.4 K/mm3 (4.4-11.0)
[2025-03-11 10:31] LABS: ALB/GLOB Ratio 1.6 RATIO (0.9-2.4); AST(SGOT) 25 U/L (<=31); Alanine Aminotransfer ALT/SGPT 20 U/L (<=34); Albumin, Serum 4.1 g/dL (3.4-4.8); Alkaline Phosphatase 88 U/L (35-104); Anion Gap 9 (5-15); BUN 12 mg/dL (4-19); BUN/Creat Ratio 13.5 RATIO (10-20); CRP < 3.00 mg/L (0.0-3.0); Calcium,Total 9.5 mg/dL (7.6-11.0); Carbon Dioxide 25.5 mmol/L (21.0-32.0); Chloride 105 mmol/L (98-108); Creatinine, Serum 0.89 mg/dL (0.70-1.20); EST Glomerular Filtration Rate 72 (>60); Globulin 2.6 g/dL (2.2-4.2); Glucose 113 mg/dL (70-99); Potassium 4.2 mmol/L (3.3-5.1); Protein, Total 6.7 g/dL (5.9-8.4); Sodium Level 139 mmol/L (133-145); Total Bilirubin 0.53 mg/dL (0.00-1.30); Vitamin B12 1236 pg/mL (180-914)
[2025-03-11 15:03] LABS: Erythrocyte Sedimentation Rate 3 mm/hr (0-30)
== END | disposition home or self-care (01) ==
LOC: LAB 08:45
PROVIDERS: PCP Family Medicine; Referring Provider Family Medicine; Visit Provider Family Medicine
DX: E53.8 Deficiency of other specified B group vitamins (principal); D64.9 Anemia, unspecified; R53.83 Other fatigue; Z51.81 Encounter for therapeutic drug level monitoring
CPT/HCPCS: 36415; 80053; 82607; 85025; 85652; 86140

== ENCOUNTER → 2025-04-04 | Outpatient (CLI) | payer OTHER, SELFPAY ==
--- NOTE | 2025-04-04 13:39 | CT_ITS ---
PROCEDURE: CTA CHEST W/WO CONTRAST 04/04/2025 REASON FOR EXAM: THORACIC AORTIC ANEURYSM,CHEST PAIN,DYSPNEA TECHNIQUE: CTA axial imaging of the chest with intravenous contrast. Multiplanar and multisequence images were obtained. PATIENT PREPARATION: Per protocol One or more dose reduction techniques were used (e.g., Automated exposure control, adjustment of the mA and/or kV according to patient size, use of iterative reconstruction technique). CONTRAST: Isovue 370 VOLUME: 100 mL RADIATION DOSE SUMMARY: CTDlvol: 18.5 mGy DLP: 523.26 mGycm COMPARISON: None FINDINGS: Hardware: None Lymph nodes: No mediastinal lymph nodes. Heart: Heart is not enlarged. Minimal coronary artery calcification. Thoracic Aorta: There is dilatation at the root of the ascending thoracic aorta with a transverse dimension of 41.8 mm. There is dilatation of the ascending aorta. The descending thoracic aorta is unremarkable. Pulmonary Vessels: No evidence of pulmonary embolism. Lungs and Airways: The lungs are clear.1 no focal infiltration is seen. Pleura: No evidence of pleural effusion. Upper Abdomen: Unremarkable. Bones: Degenerative changes of the thoracic spine. CT/CTA Chest W/WO Contrast IMPRESSION: Dilatation of the root of the ascending thoracic aorta with a transverse dimens ion of 41.8 mm. Reading Location: [place] [id number]
== END | disposition home or self-care (01) ==
LOC: CT 13:38
PROVIDERS: PCP Family Medicine; Referring Provider Family Medicine; Visit Provider Family Medicine
DX: I71.20 Thoracic aortic aneurysm, without rupture, unspecified (principal); R06.00 Dyspnea, unspecified; R07.9 Chest pain, unspecified
CPT/HCPCS: 71275; Q9967

== ENCOUNTER → 2025-04-20 | Outpatient (CLI) | payer OTHER, SELFPAY ==
--- NOTE | 2025-04-20 08:41 | ECHOD_ITS ---
Reason For Study Reason For Study: Aortic Aneurysm, SOB Procedure This was a 2D Doppler, Color Flow transthoracic echocardiogram. Exam performed in department. Left Ventricle Normal LV size. The estimated ejection fraction is 65 %. No evidence for diastolic dysfunction. No regional wall motion abnormalities noted. Right Ventricle Normal RV size. Normal systolic function. Atria The left atrium is moderately enlarged. Normal right atrium. No doppler evidence for ASD. Mitral Valve There is no mitral valve stenosis. No mitral valve insufficiency. Tricuspid Valve There is no tricuspid stenosis. Trivial tricuspid valve insufficiency. Pulmonary artery systolic pressure is 35 mmHg. Aortic Valve Trisinus/trileaflet aortic valve. There is no aortic stenosis. No aortic valve insufficiency. Pulmonic Valve There is no pulmonic valvular stenosis. No pulmonic valve insufficiency. Great Vessels The ascending aorta is moderately dilated. Pericardium/Pleural No pericardial effusion. MMode/2D Measurements & Calculations LVIDd: 5.2 cm IVSd: 1.2 cm Ao root diam: 4.9 cm LVIDs: 3.3 cm LVPWd: 1.1 cm RVDd: 3.8 cm FS: 36.3 % asc Aorta Diam: 4.9 cm LAV(MOD-bp): 87.4 ml LVAd ap4: 25.1 cm2 LAV(MOD-bp) Indexed: 39.9 ml/m2 LVLd ap4: 6.9 cm LAV(MOD-sp2): 82.1 ml EDV(MOD-sp4): 77.9 ml LAV(MOD-sp4): 84.5 ml EDV(sp4-el): 76.9 ml LVAs ap4: 11.9 cm2 LVLs ap4: 5.4 cm ESV(MOD-sp4): 23.4 ml ESV(sp4-el): 22.4 ml EF(MOD-sp4): 70.0 % EF(sp4-el): 70.9 % SV(MOD-sp4): 54.5 ml SV(sp4-el): 54.6 ml Ao sinus diam: 3.8 cm SI(MOD-sp4): 24.9 ml/m2 Ao ST Junction: 2.9 cm LA A4 area: 25.4 cm2 LA dimension(2D): 4.4 cm TAPSE: 2.3 cm RA A4 area: 14.3 cm2 Time Measurements MV dec time: 0.23 sec Doppler Measurements & Calculations MV E max rupesh: 70.2 cm/sec Lat Peak E' Rupehs: 14.3 cm/sec Med Peak E' Rupesh: 11.3 cm/sec MV A max rupesh: 48.3 cm/sec E/E' lat: 4.9 E/E' med: 6.2 MV E/A: 1.5 MV V2 max: 94.1 cm/sec MV P1/2t max rupesh: 93.2 cm/sec Ao V2 max: 185.4 cm/sec MV max P.5 mmHg MV P1/2t: 73.5 msec Ao max P.8 mmHg MV V2 mean: 44.1 cm/sec MV dec slope: 371.2 cm/sec2 Ao V2 mean: 129.2 cm/sec MV mean P.98 mmHg Ao mean P.7 mmHg MV V2 VTI: 23.7 cm MVA(P1/2t): 3.0 cm2 Ao V2 VTI: 39.6 cm AV (velocity ratio): 0.89 LV V1 max: 159.9 cm/sec PA V2 max: 103.9 cm/sec TR max rupesh: 271.7 cm/sec LV V1 max P.2 mmHg TR max P.5 mmHg LV V1 mean P.9 mmHg LV V1 mean: 114.6 cm/sec LV V1 VTI: 35.4 cm ECHO/Echo Complete Interpretation Summary The estimated ejection fraction is 65 %. No evidence for diastolic dysfunction. The left atrium is moderately enlarged. The ascending aorta is moderately dilated. Ordering Physician: Aisha Aguilar Referring Physician: Aisha Aguilar Performed By: Mic Mendez RCS
== END | disposition home or self-care (01) ==
LOC: CVS 08:39
PROVIDERS: PCP Family Medicine; Referring Provider Family Medicine; Visit Provider Family Medicine
DX: I71.9 Aortic aneurysm of unspecified site, without rupture (principal); R06.02 Shortness of breath
CPT/HCPCS: 93306

== ENCOUNTER 2025-08-06 11:37 | Emergency (ER) | payer OTHER, SELFPAY ==
[2025-08-06 11:41] VITALS: BP 154/117; PULSE 152; RESP 20; TEMP 36.7; O2SAT 99; BMI 36.3
--- NOTE | 2025-08-06 12:08 | RAD_ITS ---
PROCEDURE: CHEST PA AND LATERAL 08/06/2025 REASON FOR EXAM: CHEST PAIN TECHNIQUE: Procedure Code: RADCXR Modality: DX Procedure: CHEST PA AND LATERAL COMPARISON: None. FINDINGS: LUNGS AND PLEURA: The lungs are clear. No pleural effusion or pneumothorax. HEART AND MEDIASTINUM: The heart size and mediastinal contours are normal. BONES: No acute osseous abnormality. RAD/Chest PA and Lateral IMPRESSION: NO ACUTE FINDINGS. Reading Location: [id number]
--- NOTE | 2025-08-06 12:15 | EKG12_ITS ---
Test Reason : PALPITATIONS Blood Pressure : */* mmHG Vent. Rate : 133 BPM Atrial Rate : 266 BPM P-R Int : * ms QRS Dur : 100 ms QT Int : 380 ms P-R-T Axes : 250 -27 144 degrees QTcB Int : 565 ms Critical Test Result: Long QTc Atrial flutter with 2:1 A-V conduction Minimal voltage criteria for LVH, may be normal variant ( Carrington product ) Nonspecific ST and T wave abnormality Abnormal ECG Confirmed by RINA TERRELL, KATEY ([id number]), editor managing newspaper JAGUAR NOBLES ([id number]) on 08/07/2025 7:54:22 AM Referred By: Confirmed By: KATEY FLYNN MD
[2025-08-06 12:16] LABS: Hematocrit 41.5 % (37-47); Hemoglobin 13.8 g/dL (12.0-15.0); Immature Granulocytes Count 0.020 X10^3/uL (0.0-0.0); Mean Corp Hgb Conc 33.3 g/dL (32-36); Mean Corpuscular Volume 95.2 fL (81-99); Mean Platelet Vol. 10.0 fl (6.2-12.0); NRBC Flagged by Analyzer 0 % (0-5); Platelet Count 309 K/mm3 (150-450); RBC Distribution Width CV 12.6 % (11.6-14.6); RBC Distribution Width SD 44.6 fl (35.1-43.9); Red Blood Count 4.36 M/mm3 (4.2-5.4); White Blood Count 6.0 K/mm3 (4.4-11.0)
[2025-08-06] MEDS: 0.9% Normal Saline (1000mL) 1,000 ML 1000 ML IV (12:17)
--- NOTE | 2025-08-06 12:19 | EKG12_ITS ---
Test Reason : REPEAT/CONVERTED Blood Pressure : */* mmHG Vent. Rate : 69 BPM Atrial Rate : 69 BPM P-R Int : 146 ms QRS Dur : 96 ms QT Int : 398 ms P-R-T Axes : 31 -31 11 degrees QTcB Int : 426 ms Normal sinus rhythm Left axis deviation Abnormal ECG Confirmed by KATEY FLYNN MD ([id number]), proposal editor JAGUAR NOBLES ([id number]) on 08/07/2025 7:54:35 AM Referred By: Confirmed By: KATEY FLYNN MD
--- NOTE | 2025-08-06 12:25 | ED.VIS.CHEST ---
HPI History of Present Illness Chief Complaint: Palpitations Narrative Narrative: Patient is a 65-year-old female presenting to the emergency department for palpitations that started at 9:20 AM this morning. Patient has a past medical history of supraventricular tachycardia controlled with beta-blockers, thoracic aortic aneurysm that is being monitored, mitral valve prolapse and insufficiency, pulmonary HTN, hypertension, hyperlipidemia, lupus, fibromyalgia. Patient states that this has happened to her before but will not last this long. She endorses some left-sided chest pain that radiated down her left arm when the palpitations for started but denies any at time of evaluation. She endorses some mild intermittent shortness of breath as well with the palpitations. Endorses some nausea. Denies fever, chills, cough, congestion, sore throat, abdominal pain, vomiting, diarrhea. Denies any lower extremity edema. Denies any recent travel, hospitalizations or surgeries. Denies history of PE or DVT. She is not on any oral anticoagulation. She denies any recent medication changes, drug or alcohol use. She sees Dr. Vital for cardiology. 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 Lupus (systemic lupus erythematosus) Connective tissue disease Lupus Respiratory tract infection Osteoarthritis Fibromyalgia Pneumonia IBS (irritable bowel syndrome) Migraines Idiopathic thrombocythemia Anemia Hyperlipidemia Supraventricular tachycardia Palpitations Asthma HTN (hypertension) Carpal tunnel syndrome, bilateral Onycholysis Allergic rhinitis Cervical radiculopathy Shoulder pain Fatigue Vitamin D deficiency Vitamin B12 deficiency LILIANA (obstructive sleep apnea) Arthralgia Dyspnea Pulmonary HTN Fever Cough SHERWIN positive Home Medications ?Medication ?Instructions ?Recorded ?Last Taken ?Type aspirin 81 mg chewable tablet 81 mg PO DAILY@0800 07/07/14 12/02/20 08:00 History cholecalciferol (vitamin D3) 10 800 unit PO DAILY 07/30/17 07/30/17 History mcg (400 unit) capsule cyanocobalamin (vitamin B-12) 100 100 mcg PO DAILY 11/30/18 Unknown History mcg tablet hydroxychloroquine 200 mg tablet 200 mg PO BIDCM 09/13/20 12/02/20 08:00 History spacer #1 ea 04/11/22 Unknown Rx albuterol sulfate 90 mcg/actuation 2 inh inhalation Q4-6H PRN 06/21/24 Unknown Rx aerosol inhaler shortness of breath or wheezing #8.5 grams montelukast 10 mg tablet 10 mg PO DAILY #90 tabs 10/17/24 Unknown Rx duloxetine 40 mg capsule,delayed mg PO DAILY 01/20/25 Unknown History release fluticasone 500 mcg-salmeterol 50 1 inh inhalation BID #3 ea 02/20/25 Unknown Rx mcg/dose blistr powdr for inhalation (Wixela Inhub) nebivolol 10 mg tablet 10 mg PO QHS #90 tabs 04/25/25 Unknown Rx apixaban 5 mg tablet (Eliquis) 5 mg PO BID #30 tabs 08/06/25 Unknown Rx Allergy/AdvReac Type Severity Reaction Status Date / Time caffeine Allergy Other Verified 08/06/25 11:43 cephalexin monohydrate (From Allergy Hives Verified 08/06/25 11:43 Keflex) erythromycin base Allergy Unknown Verified 08/06/25 11:43 levofloxacin (From Levaquin) Allergy Unknown Verified 08/06/25 11:43 Penicillins Allergy Other Verified 08/06/25 11:43 verapamil AdvReac Intermediate Abd Verified 08/06/25 11:43 cramps/diarrhea aspirin AdvReac Shortness Verified 08/06/25 11:43 of breath NSAIDS (Non-Steroidal AdvReac Shortness Verified 08/06/25 11:43 Anti-Inflamma of breath promethazine HCl (From AdvReac Other Verified 08/06/25 11:43 Phenergan) Family History Mother Hypertension Heart disease CVA (cerebral vascular accident) Lung disease Thyroid disorder Bleeding disorder Father Cancer Diabetes Asthma Osteoporosis Stomach ulcer Surgical History H/O: hysterectomy History of cardiac cath H/O lumpectomy Social History Smoking Status: Never smoker alcohol intake: current alcohol intake frequency: a few times a month Alcohol type: wine substance use type: does not use ROS ROS ED ROS Narrative see HPI EXAM Physical Exam Narrative Exam Narrative: Vital signs: Reviewed General: Alert and orientedx3. No acute distress HEENT: Head is normocephalic and atraumatic, sinuses nontender, pupils equal round and reactive. Nares are patent. Oropharynx and throat exams normal. Neck: Supple without lymphadenopathy nontender Cardiovascular: Irregularly irregular rate and rhythm, no murmurs. No rubs or gallops. Normal S1 and S2. Radial and DP pulses symmetric and 2+ throughout. Respiratory: Clear to auscultation bilaterally. No wheezes, rales, rhonchi Abdominal: Soft and nontender. Normal bowel sounds. No guarding or rebound. Nonsurgical abdomen Extremities: No lower extremity edema. No tenderness. No bruising. Normal range of motion. Normal sensation. Skin: No rash or redness. Neurological: Cranial nerves II through XII are grossly intact. Normal strength and sensation. Normal cerebellar function The rest of the physical exam is unremarkable Const Vital Signs: 08/06/25 11:41 08/06/25 12:46 08/06/25 13:07 Temperature 98.1 F Temperature Source Oral Pulse Rate 152 H 69 63 Respiratory Rate 20 H 22 H 17 Blood Pressure 154/117 H 124/90 H 124/89 H Blood Pressure Mean 129 101 100 Pulse Ox 99 100 99 Oxygen Delivery Method Room Air 08/06/25 14:00 Temperature Temperature Source Pulse Rate 64 Respiratory Rate 14 Blood Pressure 135/85 H Blood Pressure Mean 101 Pulse Ox 99 Oxygen Delivery Method MDM MDM MDM Narrative Medical decision making narrative: Patient is a 65-year-old female presenting to the emergency department for palpitations that started at 9:20 AM this morning. Patient was seen and examined. Vitals are stable. Appears to be in A-fib with RVR on the monitor with rates between 110s to 140s. BP stable. Patient resting in bed comfortably in no acute distress. Initial EKG appears to be atrial flutter with 2-1 conduction with no obvious ischemic changes. Lab work including a troponin were ordered given the patient's chest pain and risk factors including hypertension and hyperlipidemia as well as obesity. Chest x-ray reviewed by myself and shows no opacities, pneumothorax, widened mediastinum. Radiology read with no acute findings. On the monitor it appears the patient is back in NSR. Repeat EKG shows NSR, with no ischemic changes. No dysrhythmia. CBC with no leukocytosis and a normal hemoglobin. BMP with no significant abnormalities. Magnesium and TSH within normal limits. Troponin and reflex within normal limits, no significant delta change. Patient does have a [id number] score of 4 for female sex, TIA history, HTN history. I discussed starting the patient on OAC with Dr. Kamara and he agrees given this score. Patient given first dose of Eliquis here. Given prescription for Eliquis for home instructed to take twice a day. Instructed to call Dr. Vital office tomorrow morning to discuss any necessary medication changes in terms of her beta domenico given this episode. Patient understands and is agreeable. Patient discharged from the Emergency Department. I do not feel that the patient's evaluation reveals any acute reason for admission at this time. I instructed them to either follow-up with their primary care physician or promptly return to the Emergency Department for reevaluation should symptoms worsen or new symptoms develop. I explained what symptoms would indicate the need to return to the emergency department. Shared decision making was used. The patient voiced understanding of the treatment plan and is agreeable with it. Clinical impression palpitations atrial flutter History & Record Review Discussion w/independent historian: Patient and Significant other Additional record(s) reviewed:: Prior outpatient record, Prior ED visit and Prior labs Lab Data Attestation: I reviewed the patient's lab results. Labs: Laboratory Results - last 24 hr 08/06/25 08/06/25 11:45 13:45 WBC 6.0 RBC 4.36 Hgb 13.8 Hct 41.5 MCV 95.2 MCH 31.7 MCHC 33.3 RDW Std Deviation 44.6 H RDW Coeff of Titi 12.6 Plt Count 309 MPV 10.0 Immature Gran % (Auto) 0.300 Neut % (Auto) 54.7 Lymph % (Auto) 32.0 [place] % (Auto) 10.4 H Eos % (Auto) 1.8 Baso % (Auto) 0.8 Absolute Neuts (auto) 3.3 Absolute Lymphs (auto) 1.91 Nucleated RBC % 0 Sodium 140 Potassium 4.0 Chloride 106 Carbon Dioxide 23.9 Anion Gap 11 BUN 12 Creatinine 0.82 Estim Creat Clear Calc 89.34 Est GFR (MDRD) Non-Af 80 BUN/Creatinine Ratio 14.0 Glucose 102 H Calcium 9.8 Magnesium 2.3 H Troponin T High Sens 11 Troponin T Hi Sens 2 Hr 12 TSH 1.500 Radiography Chest X-Ray - ED: 2 View, Read by ED Physician, Normal, No Acute Disease and No Infiltrates Diagnostic Testing: Clinical Impression(s) from Imaging Studies Chest X-Ray 08/06/25 12:08 IMPRESSION: NO ACUTE FINDINGS. Reading Location: [facility] Discharge Plan Triage Chief Complaint: Palpitations ED Provider: Asmita Sánchez Dx/Rx/DC Orders Clinical Impression: Atrial fibrillation/flutter Instructions: AFib Dc, AFib Preventing Stroke Prescriptions: New Eliquis 5 mg tablet 5 mg PO BID Qty: 30 0RF No Action cyanocobalamin (vitamin B-12) 100 mcg tablet 100 mcg PO DAILY albuterol sulfate 90 mcg/actuation HFA aerosol inhaler 2 inh inhalation Q4-6H PRN (Reason: shortness of breath or wheezing) Qty: 8.5 11RF duloxetine 40 mg capsule,delayed release(DR/EC) PO DAILY aspirin 81 MG tablet,chewable 81 mg PO DAILY@0800 cholecalciferol (vitamin D3) 400 UNIT capsule 800 unit PO DAILY hydroxychloroquine 200 MG tablet 200 mg PO BIDCM (DME) spacer See Rx Instructions .ROUTE .MEDSUPPLY Qty: 1 0RF Rx Instructions: As directed montelukast 10 mg tablet 10 mg PO DAILY Qty: 90 3RF fluticasone propion-salmeterol [Wixela Inhub] 500-50 mcg/dose blister with device 1 inh inhalation BID Qty: 3 3RF nebivolol 10 mg tablet 10 mg PO QHS Qty: 90 3RF Primary Care Provider: Aisha Aguilar Referrals: Aisha Aguilar DO [Primary Care Provider, Family Practice] Eusebio Vital MD [Med Staff - Active Staff, Cardiology] - 1 Day Referral Note: started on eliquis for atrial flutter, CHADSVASC of 4 Clinical Impression: Atrial fibrillation/flutter Activity Restrictions/Additional Instructions: Take the Eliquis twice a day. Called Dr. Vital tomorrow morning to follow up as soon as possible to discuss any medication changes that are needed. Your evaluation in the Emergency Department did not reveal any acute reason for admission. However, I want to emphasize that you may be early in the course of a disease process or illness even if it is not present. For this reason you should follow-up within 24 hours for reevaluation with either your primary care physician or if necessary back here in the Emergency Department. You should return to the Emergency Department immediately if your symptoms worsen or new symptoms develop. Print Language: Bahamian Disposition Disposition: Home, Self Care
[2025-08-06 12:41] LABS: Anion Gap 11 (5-15); BUN 12 mg/dL (4-19); BUN/Creat Ratio 14.0 RATIO (10-20); Calcium,Total 9.8 mg/dL (7.6-11.0); Carbon Dioxide 23.9 mmol/L (21.0-32.0); Chloride 106 mmol/L (98-108); Estimated Creatinine Clearance 89.34 ml/min (50-250); Glucose 102 mg/dL (70-99); Magnesium 2.3 mg/dL (1.5-2.2); Potassium 4.0 mmol/L (3.3-5.1); Troponin T High Sensitivity 11 ng/L (<=14)
[2025-08-06 12:46] VITALS: BP 124/90; PULSE 69; RESP 22; O2SAT 100
[2025-08-06 13:07] VITALS: BP 124/89; PULSE 63; RESP 17; O2SAT 99
[2025-08-06 14:00] VITALS: BP 135/85; PULSE 64; RESP 14; O2SAT 99
[2025-08-06 14:10] LABS: Troponin T High Sens 2 HR 12 ng/L (<=14)
[2025-08-06] MEDS: APIXABAN 5 MG TABLET PO (14:49)
[2025-08-06 14:52] VITALS: BP 135/85; PULSE 64; RESP 14; TEMP 36.7; O2SAT 99
== END 2025-08-06 14:53 | disposition home or self-care (01) ==
PROVIDERS: Emergency Provider Student in an Organized Health Care Education/Training Program; PCP Family Medicine; Visit Provider Student in an Organized Health Care Education/Training Program
DX: I48.91 Unspecified atrial fibrillation (principal); I48.92 Unspecified atrial flutter; G47.33 Obstructive sleep apnea (adult) (pediatric)
CPT/HCPCS: 71046; 80048; 83735; 84443; 84484; 85025; 93005; 96360; 96361; 99284; A4216

== ENCOUNTER → 2025-09-22 | Outpatient (CLI) | payer OTHER, SELFPAY ==
--- NOTE | 2025-09-22 09:51 | BI_ITS ---
EXAM: SCRN MAMM (CAD)W/MEHRAN BILAT DATE: 09/22/2025 CLINICAL HISTORY: F, Age 65 y/o , SCREEN TECHNIQUE: Procedure Code: [id number] Modality: MG Procedure: SCRN MAMM (CAD)W/MEHRAN BILAT COMPARISON: Prior exam(s) dated 09/04/2024, 09/09/2023. FINDINGS: TISSUE DENSITY: The breasts are heterogeneously dense, which may obscure small masses. Bilateral Breast Mammographic Findings: No significant masses, calcifications or other abnormalities are identified. BI/SCRN MAMM (CAD)W/MEHRAN BILAT IMPRESSION: There is no mammographic evidence of malignancy. OVERALL FINAL ASSESSMENT BI-RADS 1: NEGATIVE. RECOMMENDATION: Routine annual follow-up in 1 Year Additional Recommendation none A letter with findings and recommendations will be mailed to the patient. Reading Location: [id number]
[2025-09-22 11:29] LABS: Cholesterol 198 mg/dL (<=200); Low Density Lipoprotein Calc. 130 mg/dL; Triglycerides 115 mg/dL; Very Low Density Lipoprotein 23 mg/dL (5-40); cholesterol:hdl ratio screen 4.23
== END | disposition home or self-care (01) ==
LOC: OPBI 09:39
PROVIDERS: PCP Family Medicine; Referring Provider Family Medicine; Visit Provider Family Medicine
DX: Z12.31 Encounter for screening mammogram for malignant neoplasm of breast (principal); E78.5 Hyperlipidemia, unspecified
CPT/HCPCS: 36415; 77063; 77067; 80061

== ENCOUNTER 2025-11-13 17:04 | Emergency (ER) | payer OTHER, SELFPAY ==
[2025-11-13] VITALS (13 sets, daily range): BP systolic 133–179; BP diastolic 81–128; PULSE 72–145; RESP 14–20; TEMP 36–36.8; O2SAT 97–100; BMI 35.4
--- NOTE | 2025-11-13 17:55 | EX.ED.DYSGE1 ---
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 Lupus (systemic lupus erythematosus) Connective tissue disease Lupus Respiratory tract infection Osteoarthritis Fibromyalgia Pneumonia IBS (irritable bowel syndrome) Migraines Idiopathic thrombocythemia Anemia Hyperlipidemia Supraventricular tachycardia Palpitations Asthma HTN (hypertension) Carpal tunnel syndrome, bilateral Onycholysis Allergic rhinitis Cervical radiculopathy Shoulder pain Fatigue Vitamin D deficiency Vitamin B12 deficiency LILIANA (obstructive sleep apnea) Arthralgia Dyspnea Pulmonary HTN Fever Cough SHERWIN positive Home Medications ?Medication ?Instructions ?Recorded ?Last Taken ?Type cholecalciferol (vitamin D3) 10 800 unit PO DAILY 07/30/17 07/30/17 History mcg (400 unit) capsule hydroxychloroquine 200 mg tablet 200 mg PO BIDCM 09/13/20 12/02/20 08:00 History spacer #1 ea 04/11/22 Unknown Rx albuterol sulfate 90 mcg/actuation 2 inh inhalation Q4-6H PRN 06/21/24 Unknown Rx aerosol inhaler shortness of breath or wheezing #8.5 grams fluticasone 500 mcg-salmeterol 50 1 inh inhalation BID #3 ea 02/20/25 Unknown Rx mcg/dose blistr powdr for inhalation (Wixela Inhub) apixaban 5 mg tablet (Eliquis) 5 mg PO BID #60 tabs 08/08/25 Unknown Rx diltiazem HCl 180 mg 180 mg PO QAM #30 caps 09/04/25 Unknown Rx capsule,extended release 24 hr (Cartia XT) montelukast 10 mg tablet 10 mg PO DAILY #90 tabs 10/17/25 Unknown Rx duloxetine 40 mg capsule,delayed 40 mg PO DAILY 11/13/25 Unknown History release Allergy/AdvReac Type Severity Reaction Status Date / Time caffeine Allergy Other Verified 11/13/25 17:05 cephalexin monohydrate (From Allergy Hives Verified 11/13/25 17:05 Keflex) erythromycin base Allergy Unknown Verified 11/13/25 17:05 levofloxacin (From Levaquin) Allergy Unknown Verified 11/13/25 17:05 Penicillins Allergy Other Verified 11/13/25 17:05 verapamil AdvReac Intermediate Abd Verified 11/13/25 17:05 cramps/diarrhea aspirin AdvReac Shortness Verified 11/13/25 17:05 of breath NSAIDS (Non-Steroidal AdvReac Shortness Verified 11/13/25 17:05 Anti-Inflamma of breath promethazine HCl (From AdvReac Other Verified 11/13/25 17:05 Phenergan) Family History Mother Hypertension Heart disease CVA (cerebral vascular accident) Lung disease Thyroid disorder Bleeding disorder Father Cancer Diabetes Asthma Osteoporosis Stomach ulcer Surgical History H/O: hysterectomy History of cardiac cath H/O lumpectomy Social History Smoking Status: Never smoker alcohol intake: current alcohol intake frequency: a few times a month Alcohol type: wine substance use type: does not use EXAM Physical Exam Const Vital Signs: 11/13/25 17:05 11/13/25 17:26 11/13/25 17:59 Temperature 96.8 F L Temperature Source Temporal Pulse Rate 77 112 H Pulse Rate [1 (Initial Baseline)] Pulse Rate [2] Respiratory Rate 18 18 Respiratory Rate [1 (Initial Baseline)] Respiratory Rate [2] Respiratory Effort Short of Breath Blood Pressure 176/91 H 156/104 H Blood Pressure [1 (Initial Baseline)] Blood Pressure [2] Blood Pressure Mean 119 121 Baseline BP Pulse Ox 100 98 Oxygen Delivery Method Room Air Room Air Oxygen Delivery Method [1 (Initial Baseline)] Oxygen Delivery Method [2] Oxygen Flow Rate (L/min) Oxygen Flow Rate (L/min) [1 (Initial Baseline)] Oxygen Flow Rate (L/min) [2] EtCo2 - Document during CPR and with ROSC EtCo2 - Document during CPR and with ROSC [1 (Initial Baseline)] EtCo2 - Document during CPR and with ROSC [2] 11/13/25 18:51 11/13/25 19:34 11/13/25 19:45 Temperature Temperature Source Pulse Rate 134 H Pulse Rate [1 (Initial Baseline)] Pulse Rate [2] Respiratory Rate 18 Respiratory Rate [1 (Initial Baseline)] Respiratory Rate [2] Respiratory Effort Blood Pressure 148/91 H Blood Pressure [1 (Initial Baseline)] Blood Pressure [2] Blood Pressure Mean 110 Baseline BP Pulse Ox 100 100 Oxygen Delivery Method Room Air Room Air Oxygen Delivery Method [1 (Initial Baseline)] Oxygen Delivery Method [2] Oxygen Flow Rate (L/min) Oxygen Flow Rate (L/min) [1 (Initial Baseline)] Oxygen Flow Rate (L/min) [2] EtCo2 - Document during CPR and with ROSC 28 EtCo2 - Document during CPR and with ROSC [1 (Initial Baseline)] EtCo2 - Document during CPR and with ROSC [2] 11/13/25 19:46 11/13/25 20:18 11/13/25 20:25 Temperature Temperature Source Pulse Rate 114 H 145 H Pulse Rate [1 (Initial Baseline)] 128 H Pulse Rate [2] 91 Respiratory Rate 16 17 Respiratory Rate [1 (Initial Baseline)] 14 Respiratory Rate [2] 20 H Respiratory Effort Blood Pressure 139/83 H 143/100 H Blood Pressure [1 (Initial Baseline)] 170/128 H Blood Pressure [2] 152/95 H Blood Pressure Mean 114 Baseline BP 139/83 Pulse Ox 100 99 Oxygen Delivery Method Room Air Room Air Oxygen Delivery Method [1 (Initial Baseline)] Non-Rebreather Oxygen Delivery Method [2] Non-Rebreather Oxygen Flow Rate (L/min) Oxygen Flow Rate (L/min) [1 (Initial Baseline)] 15 Oxygen Flow Rate (L/min) [2] 15 EtCo2 - Document during CPR and with ROSC 29 EtCo2 - Document during CPR and with ROSC [1 (Initial Baseline)] 30 EtCo2 - Document during CPR and with ROSC [2] 17 11/13/25 20:35 11/13/25 20:40 11/13/25 20:45 Temperature Temperature Source Pulse Rate 90 91 75 Pulse Rate [1 (Initial Baseline)] Pulse Rate [2] Respiratory Rate 15 17 16 Respiratory Rate [1 (Initial Baseline)] Respiratory Rate [2] Respiratory Effort Blood Pressure 152/95 H 179/100 H 151/85 H Blood Pressure [1 (Initial Baseline)] Blood Pressure [2] Blood Pressure Mean Baseline BP Pulse Ox 100 98 98 Oxygen Delivery Method Non-Rebreather Room Air Room Air Oxygen Delivery Method [1 (Initial Baseline)] Oxygen Delivery Method [2] Oxygen Flow Rate (L/min) 15 Oxygen Flow Rate (L/min) [1 (Initial Baseline)] Oxygen Flow Rate (L/min) [2] EtCo2 - Document during CPR and with ROSC 15 30 28 EtCo2 - Document during CPR and with ROSC [1 (Initial Baseline)] EtCo2 - Document during CPR and with ROSC [2] 11/13/25 21:12 Temperature Temperature Source Pulse Rate 72 Pulse Rate [1 (Initial Baseline)] Pulse Rate [2] Respiratory Rate 14 Respiratory Rate [1 (Initial Baseline)] Respiratory Rate [2] Respiratory Effort Blood Pressure 133/89 H Blood Pressure [1 (Initial Baseline)] Blood Pressure [2] Blood Pressure Mean 103 Baseline BP Pulse Ox 98 Oxygen Delivery Method Oxygen Delivery Method [1 (Initial Baseline)] Oxygen Delivery Method [2] Oxygen Flow Rate (L/min) Oxygen Flow Rate (L/min) [1 (Initial Baseline)] Oxygen Flow Rate (L/min) [2] EtCo2 - Document during CPR and with ROSC EtCo2 - Document during CPR and with ROSC [1 (Initial Baseline)] EtCo2 - Document during CPR and with ROSC [2] [facility] MDM Narrative Medical decision making narrative: HISTORY OF PRESENT ILLNESS: Chief complaint: Palpitation 65-year-old female history of atrial fibrillation (on Eliquis), TIA, mitral valve prolapse, thoracic aneurysm, hypertension, pulmonary hypertension, LILIANA, asthma, IBS, fibromyalgia, lupus presents with palpitations. Per the patient's portable pinch riveter at 36 hours of palpitations. She notes she took an Exer dose of diltiazem with no relief. She request to be cardioverted. Her portable pinch riveter sent her here for cardioversion. Patient no some shortness of breath. Denies leg swelling. Denies chest pain. Denies bleeding diathesis. No recent illness REVIEW OF SYSTEMS: Pertinent positives: Palpitations, shortness of Pertinent negatives: As per HPI PHYSICAL EXAM: Nursing triage notes reviewed, Vital signs reviewed Constitutional: please see mdm HENT: MMM Eyes: Pupils equal round and reactive to light, Extraocular muscles intact Neck: No stridor, no JVD, full neck ROM Lungs: Clear to auscultation, No wheezing or rales. No increased work of breathing, no conversational dyspnea, no accessory muscle use, no nasal flaring. No respiratory distress noted Heart: Fast irregular rate consistent with A-fib, No murmurs, No rubs and No gallops, 2+ distal pulses (radial, femoral, posterior tibial) in all extremities Abdomen: Soft, there is no tenderness, rigidity, rebound or guarding, no obvious peritoneal signs, no palpable pulsatile abdominal masses, no auscultated abdominal bruit : No CVAT Extremities: No edema Neuro: No new focal neurological deficits, cranial nerves II through XII intact, 5/5 strength in all present extremities. Intact sensation to light touch in all present extremities, 2+ reflexes bilateral patella tendons. Skin: No rash or lesions noted MEDICAL DECISION MAKING: Chief Complaint: please see HPI External records reviewed: Echocardiogram from April 2025 shows ejection fraction 65% Factors affecting care: As per [facility] Social determinants of health: none History obtained from others: none Consults: none [facility] Narrative: Patient was initially hemodynamically stable, afebrile saturating percent room air. Exam consistent with A-fib. No focal without lesions auscultated. No lower extremity edema I considered the following differential diagnosis: Arrhythmia, anemia, electrolyte disturbance, pneumonia, CHF I obtained a broad lab and imaging workup to further determine if the patient was suffering from a life-threatening etiology. Initially resuscitated the patient with 500 cc bolus. ALL IMAGES (IF OBTAINED) HAVE BEEN PERSONALLY REVIEWED AND INTERPRETED BY MYSELF. Initial EKG showed A-fib with RVR rate 148, left ax deviation, normal intervals, no obvious STEMI CBC without leukocytosis, severe anemia, no thrombocytopenia. I have personally reviewed the patient's chest x-ray. Chest x-ray is unremarkable for pulmonary edema, pneumothorax, pneumonia or focal cardiopulmonary abnormality. BMP without evidence of significant electrolyte abnormalities, no anion gap, no acute kidney injury. LFTs show no evidence of hepatobiliary pathology. Discussed rate control with rhythm control strategies. Discussed risk and benefits. Consent form signed. Patient agreed to undergo cardioversion. Post cardioversion EKG showed normal sinus rhythm cardioversion was performed with success. Patient returned to baseline. Labs images were unremarkable patient is appropriate discharge home. The procedure was performed by myself. Intra-Service Time: 15 Indication: Completion of a potentially painful procedure. Pre-sedation Evaluation: Evaluated approximately 8:10 PM, Mallampati score 1, ASA score IV Patient is an appropriate candidate for procedural sedation. The risks of sedation were discussed with the patient and/or legal guardian. A time out was completed. The patient was reevaluated immediately prior to initiation of sedation. IV access established. The patient was sedated with 50 mg of etomidate The patient was monitored with continuous pulse oximetry, shot lighter, and capnography. The patient protected their airway well, with vital signs remaining stable throughout the duration of the procedure. There were no complications and no significant hypoxemia. I remained at the bedside for the sedation. I provided 15 minutes of intra-service time. Post sedation evaluation: Patient was alert and cooperative, hemodynamically stable with appropriate respiratory status, temperature and pain control without ongoing nausea and vomiting. Cardioversion The procedure was performed by myself. Benefits and Risk: The risks, benefits and alternatives to cardioversion were discussed with the patient. Consent: Questions were sought and answered, and consent was given for the procedure. Preparation: Oxygen was administered and the appropriate pre-procedural policies were followed. Cardiac, oxygenation and blood pressure monitoring occurred. Anesthesia: See documentation on procedural sedation. Procedure Description: 1 attempt, 200 J with conversion to normal sinus rhythm The patient tolerated the procedure well without complications. The patient and/or family, caregivers express understanding. The patient and/or family, caregivers agrees with the plan. Shared decision making: I will have a discussion with the patient and or visitors regarding risk/benefits of further testing or admission. They will be made aware of of the risk/benefits inherent in this decision they will be given the opportunity to voice understanding. Total critical care time today provided was at least 0 minutes. This excludes separately billable procedures. Critical care time (if documented) is secondary to the patient having high probability of clinically significant/life threatening deterioration in the patient's condition which required my urgent intervention. Impression: 1. A-fib with RVR 2. Palpitations Dispo: Discharge home This note was generated with [employer] dictation software. It may contain incorrect words, spelling, and punctuation that were not noted in review of the chart prior to signing. Lab Data Labs: Laboratory Results - last 24 hr 11/13/25 18:33 WBC 6.8 RBC 4.24 Hgb 13.2 Hct 39.6 MCV 93.4 MCH 31.1 MCHC 33.3 RDW Std Deviation 44.4 H RDW Coeff of Titi 13.1 Plt Count 306 MPV 9.9 Immature Gran % (Auto) 0.100 Neut % (Auto) 54.8 Lymph % (Auto) 34.0 [place] % (Auto) 8.6 Eos % (Auto) 1.8 Baso % (Auto) 0.7 Absolute Neuts (auto) 3.7 Absolute Lymphs (auto) 2.30 Nucleated RBC % 0 Sodium 141 Potassium 3.9 Chloride 106 Carbon Dioxide 25.2 Anion Gap 9 BUN 14 Creatinine 0.83 Estim Creat Clear Calc 87.10 Est GFR (MDRD) Non-Af 78 BUN/Creatinine Ratio 16.2 Glucose 107 H Calcium 9.6 Total Bilirubin 0.26 AST 24 ALT 25 Alkaline Phosphatase 101 Total Protein 6.6 Albumin 4.1 Globulin 2.5 Albumin/Globulin Ratio 1.7 Radiography Diagnostic Testing: Clinical Impression(s) from Imaging Studies Chest X-Ray 11/13/25 18:53 IMPRESSION: No focal consolidations. Reading Location: [facility] Discharge Plan Triage Chief Complaint: Palpitations ED Provider: Adán Arriaga Dx/Rx/DC Orders Prescriptions: No Action albuterol sulfate 90 mcg/actuation HFA aerosol inhaler 2 inh inhalation Q4-6H PRN (Reason: shortness of breath or wheezing) Qty: 8.5 11RF duloxetine 40 mg capsule,delayed release(DR/EC) 40 mg PO DAILY Eliquis 5 mg tablet 5 mg PO BID Qty: 60 11RF cholecalciferol (vitamin D3) 400 UNIT capsule 800 unit PO DAILY hydroxychloroquine 200 MG tablet 200 mg PO BIDCM (DME) spacer See Rx Instructions .ROUTE .MEDSUPPLY Qty: 1 0RF Rx Instructions: As directed fluticasone propion-salmeterol [Wixela Inhub] 500-50 mcg/dose blister with device 1 inh inhalation BID Qty: 3 3RF diltiazem HCl [Cartia XT] 180 mg capsule,extended release 24hr 180 mg PO QAM Qty: 30 5RF montelukast 10 mg tablet 10 mg PO DAILY Qty: 90 3RF Primary Care Provider: Aisha Aguilar Referrals: Aisha Aguilar DO [Primary Care Provider, Family Practice] Print Language: Moroccan
--- NOTE | 2025-11-13 18:23 | EKG12_ITS ---
Test Reason : PALP Blood Pressure : */* mmHG Vent. Rate : 148 BPM Atrial Rate : * BPM P-R Int : * ms QRS Dur : 90 ms QT Int : 298 ms P-R-T Axes : * -22 68 degrees QTcB Int : 467 ms Critical Test Result: High HR Atrial fibrillation with rapid ventricular response Minimal voltage criteria for LVH, may be normal variant ( Carrington product ) Nonspecific ST and T wave abnormality , consider ischemia Abnormal ECG Confirmed by Med Andrade ([id number]), fan mail editor EMILY LATHAM ([id number]) on 11/17/2025 6:38:42 AM Referred By: SOFIA/FERNANDO Confirmed By: Med Andrade
[2025-11-13] MEDS: 0.9% Normal Saline (500mL Bag) 500 ML 1000 ML IV (18:51)
--- NOTE | 2025-11-13 18:53 | RAD_ITS ---
PROCEDURE: CHEST 1 VIEW (PORTABLE) 11/13/2025 REASON FOR EXAM: PALPITATIONS TECHNIQUE: Frontal view of the chest. FINDINGS: No focal consolidation. No pleural effusion or pneumothorax. Cardiac silhouette is within normal limits. No acute fractures. RAD/Chest 1 View (Portable) IMPRESSION: No focal consolidations. Reading Location: [facility]
[2025-11-13 19:00] LABS: Hematocrit 39.6 % (37-47); Hemoglobin 13.2 g/dL (12.0-15.0); Immature Granulocytes Count 0.010 X10^3/uL (0.0-0.0); Mean Corp Hgb Conc 33.3 g/dL (32-36); Mean Corpuscular Volume 93.4 fL (81-99); Mean Platelet Vol. 9.9 fl (6.2-12.0); NRBC Flagged by Analyzer 0 % (0-5); Platelet Count 306 K/mm3 (150-450); RBC Distribution Width CV 13.1 % (11.6-14.6); RBC Distribution Width SD 44.4 fl (35.1-43.9); Red Blood Count 4.24 M/mm3 (4.2-5.4); White Blood Count 6.8 K/mm3 (4.4-11.0)
[2025-11-13 19:23] LABS: AST(SGOT) 24 U/L (<=31); Alanine Aminotransfer ALT/SGPT 25 U/L (<=34); Albumin, Serum 4.1 g/dL (3.4-4.8); Alkaline Phosphatase 101 U/L (35-104); Anion Gap 9 (7-18); BUN 14 mg/dL (4-19); BUN/Creat Ratio 16.2 RATIO (10-20); Calcium,Total 9.6 mg/dL (7.6-11.0); Carbon Dioxide 25.2 mmol/L (20.0-29.0); Chloride 106 mmol/L (96-106); Estimated Creatinine Clearance 87.10 ml/min (50-250); Globulin 2.5 g/dL (2.2-4.2); Glucose 107 mg/dL (70-99); Potassium 3.9 mmol/L (3.5-5.1)
== END 2025-11-13 22:09 | disposition home or self-care (01) ==
PROVIDERS: Emergency Provider Emergency Medicine; PCP Family Medicine; Visit Provider Emergency Medicine
DX: I48.91 Unspecified atrial fibrillation (principal); R00.2 Palpitations; G47.33 Obstructive sleep apnea (adult) (pediatric); Z86.73 Personal history of transient ischemic attack (TIA), and cerebral infarction without residual deficits
CPT/HCPCS: 71045; 80053; 85025; 92960; 93005; 96361; 96374; 96375; 96376; 99285; A4216; J2405